=== PATIENT | female | born 1950 | race Caucasian/White ===

== ENCOUNTER → 2017-01-19 | Outpatient (CLI) | payer OTHER ==
[~2017-01-19] MED LIST: ALPR0.25 PO; ESCI1TAB9 PO; SULF800T23 PO; [UNRECOGNIZED DRUG - CODE] IV
[2017-01-19 11:20] LABS: BASO % 0.3 %; BASO ABS # 0.02 K/uL (0-0.2); COMPLETE YES; EOS % 2.8 %; HEMATOCRIT 41.6 % (37-47); IG% 0.2 %; LYMPH % 31.1 %; LYMPH ABS # 2.02 K/uL (1.2-3.4); MEAN CELL VOLUME 93.3 fL (80-100); MEAN CORPUSCULAR HEMOGLOBIN 29.8 pg (25-34); MEAN PLATELET VOLUME 10.1 fL (7.4-10.4); MONO % 7.2 %; NEUT % 58.4 %; PLATELET COUNT 309 K/uL (130-400); RED BLOOD COUNT 4.46 M/uL (4.2-5.4); WHITE BLOOD COUNT 6.49 K/uL (4.8-10.8)
[2017-01-19 11:42] LABS: ESTIMATED AVERAGE GLUCOSE 117 mg/dl; HA1C FLAG Normal (Normal)
[2017-01-19 11:46] LABS: ALT/SGPT 21 U/L (12-78); BLOOD UREA NITROGEN 16 mg/dl (7-18); BUN/CREATININE RATIO 21.1 (10-20); CARBON DIOXIDE 31 mmol/L (21-32); CHLORIDE 104 mmol/L (98-107); CHOLESTEROL 180 mg/dl (0-200); CREATININE 0.74 mg/dl (0.60-1.20); GLUCOSE 88 mg/dl (70-99); POTASSIUM 4.1 mmol/L (3.5-5.1); SODIUM 140 mmol/L (136-145); TRIGLYCERIDES 139 mg/dl (0-150); URIC ACID 4.6 mg/dl (2.6-7.2); VERY LOW DENSITY LIPOPROT CALC 28 mg/dl
[2017-01-19 11:55] LABS: ALB/GLOB RATIO 1.1 (0.9-2); ALKALINE PHOSPHATASE 95 U/L (45-117); AST/SGOT 18 U/L (15-37); CHOLESTEROL/HDL RATIO 2.6; HDL CHOLESTEROL 69 mg/dl; LDL CHOLESTEROL CALCULATED 83 mg/dl; PHOSPHORUS 3.6 mg/dl (2.5-4.9)
== END | disposition home or self-care (01) ==
LOC: C.LABBC 07:23
PROVIDERS: ATTEND Family Medicine
DX: R73.09 Other abnormal glucose (principal); E55.9 Vitamin D deficiency, unspecified; D51.9 Vitamin B12 deficiency anemia, unspecified

== ENCOUNTER 2019-01-18 08:15 | Inpatient (IN) ==
--- NOTE | 2018-12-25 11:19 | Anesthesiology Consultation ---
Date of Service December 25, 2018 Assessment & Plan (1) Encounter for pre-operative examination: Chart Review Chart Review: Acceptable Risk for Surgery and Patient seen in Pre Admission Testing Teaching & Discussion Instructed NPO after midnight before surgery, except medications with 15 cc of water. Medication instructions provided according to the [facility] guidelines. History Surgery Operation Date: 01/18/19 10:40 Proposed Procedures p Left Total Knee Arthroplasty - Dangelo Villegas MD Height/Weight Height: 5 ft 3 in Weight: 70.4 kg Allergies Allergy/AdvReac Type Severity Reaction Status Date / Time No Known Allergies Allergy Verified 12/21/18 11:08 Medications Home Medications Medication Instructions Recorded Confirmed Last Taken abatacept (with maltose) [Orencia 750 mg IV UD 12/21/18 12/21/18 Unknown (with maltose)] acetaminophen [Tylenol Extra 1,000 mg PO Q6H PRN 12/21/18 12/21/18 Unknown Strength] alprazolam 0.1 tab PO HS 12/21/18 12/21/18 Unknown naproxen sodium 220 mg PO QID PRN 12/21/18 12/21/18 Unknown Past Medical History Medical History Leaky heart valve HX-20 YRS AGO-ECHO DONE-NO F/U WITH COLLEGE DIRECTOR REQUIRED. 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 CHILDBIRTH/INFECTION OVARY-TREATED WITH WARFARIN X 3 MONTHS-NO ISSUES SINCE Past Family History Family History Father Family history of diabetes mellitus Past Surgical History Surgical History H/O foot surgery RIGHT BUNION H/O ovarian cystectomy History of section History of hysterectomy TOTAL History of laparotomy ECTOPIC Past Anesthesia History No Hx of Anesthesia Complications and No Family Hx of Anesthesia Complications History of PONV No Motion Sickness Screening History of Motion Sickness: No Social History Smoking Status: Former smoker Do You Dip or Chew Tobacco: No Smoking End Date: QUIT 3 YRS AGO Hx Alcohol Use: No Hx Substance Use: No substance use type: does not use Exercise / Class Metabolic Activity II 4-5 Yardwork/Stairs/Walk up hill (denies CP or SOB with 1 FOS) Pt reports going to gym 4x per week, HR into 130s doing cardio. Review of Systems Pt denies any recent chest pain, shortness of breath, cough, fever or URI. +occ palpitations Physical Exam Vital Signs BP: 163/80 (pt reports anxiety today) P: 82bpm SPO2: 96% RA T: 98.3 F R: 16 ENMT Mouth: + dental restorations (one implant, several crowns); no chipped teeth and no loose teeth Thyromental Distance: > or= 3.5 Finger Breadths (4) Mallampati Class: I Neck normal visual inspection; neck extension not limited Respiratory normal respiratory effort Auscultation: lungs clear to auscultation bilaterally Cardiovascular Rate/Rhythm: regular rate and regular rhythm Heart Sounds: no murmur Vessels: no carotid bruit Extremities: no edema Testing Electrocardiogram Date: 12/25/18 Findings: + NSR @ (80) Chest X-Ray Date: 12/25/18 Findings: + NAD Cervical Spine Date: 12/25/18 FINDINGS: There are moderate multilevel degenerative changes. The prevertebral soft tissues are normal. There is 3 mm of anterolisthesis of C3 on C4. This reduces to neutral on extension and remains unchanged in flexion. IMPRESSION: 1. Multilevel degenerative changes 2. 3 mm of anterior subluxation of C3 on C4 likely arthritic. Laboratory Results 12/25/18 11:45 Blood Type O Positive 12/25/18 11:45 Antibody Screen NEGATIVE 12/25/18 11:45 PT 9.9 Seconds (9.0-12.0) 12/25/18 11:45 INR 1.0 (0.9-1.1) 12/25/18 11:45 APTT 26.1 Seconds (21.0-31.0) 12/25/18 11:45 11/27/18 WBC: 10.05 H/H: 13.4/40.8 PLATELETS: 291
--- NOTE | 2018-12-25 11:34 | PAT Medication Instructions ---
Medication Instructions Date of Service December 25, 2018 Home Medications abatacept (with maltose) [Orencia] 750 mg IV UD acetaminophen [Tylenol Extra] 1,000 mg PO Q6H PRN alprazolam 0.1 tab PO HS naproxen sodium 220 mg PO QID PRN Continue as directed abatacept (with maltose) [Orencia] 750 mg IV UD ASK your surgeon for instructions naproxen sodium 220 mg PO QID PRN Take morning of surgery With a small sip of water, OTHERWISE NOTHING TO EAT OR DRINK AFTER MIDNIGHT: acetaminophen [Tylenol Extra] 1,000 mg PO Q6H PRN (if needed, may be taken up to four hours before surgery) Take evening before surgery acetaminophen [Tylenol Extra] 1,000 mg PO Q6H PRN (if needed) alprazolam 0.1 tab PO HS Other Notes If you have any questions please call us at [phone] or [phone] or [phone] or [phone]
--- NOTE | 2018-12-25 12:24 | XRay Report ---
XR chest Pre-admission PA/Lat CLINICAL HISTORY: Preoperative chest COMPARISON STUDY: No previous studies for comparison. FINDINGS: The cardiac and mediastinal contours are normal. There is no evidence of focal pulmonary co nsolidation. There is no evidence of failure. No pleural effusions are visualized.[ IMPRESSION: No active disease in the chest. Electronically signed by: Yoni Whalen M.D. 12/25/2018 12:22 PM
--- NOTE | 2018-12-25 12:27 | XRay Report ---
LATERAL VIEW THE CERVICAL SPINE IN FLEXION AND EXTENSION (3 VIEWS) CLINICAL HISTORY: Preoperative study. Rheumatoid arthritis. COMPARISON STUDY: No previous studies for comparison. FINDINGS: There are moderate multilevel degenerative changes. The prevertebral soft tissues are sis l. There is 3 mm of anterolisthesis of C3 on C4. This reduces to neutral on extension and remains unc hanged in flexion. IMPRESSION: 1. Multilevel degenerative changes 2. 3 mm of anterior subluxation of C3 on C4 likely arthritic Electronically signed by: Yoni Whalen M.D. 12/25/2018 12:25 PM
[2018-12-25 13:42] LABS: Partial Thromboplastin Time 26.1 Seconds (21.0-31.0); Prothrombin Time 9.9 Seconds (9.0-12.0)
[2018-12-25 14:01] LABS: BUN Creatinine Ratio 27.7 (10-20); C Reactive Protein 0.38 mg/dl (0-0.29); Calcium 9.2 mg/dl (8.5-10.1); Creatinine Clr Calc Pharmacy 67.5 ml/min; Est GFR (African American) 96.7; Est GFR (Non-African American) 83.4; Potassium 4.9 mmol/L (3.5-5.1)
--- NOTE | 2019-01-11 09:15 | History and Physical Report ---
DATE OF ADMISSION: 01/18/2019 CHIEF COMPLAINT: Bilateral knee pain and discomfort, left side greater than right. HISTORY OF PRESENT ILLNESS: The patient is a 68-year-old female with longstanding rheumatoid disease followed by Dr. Zuniga, who now presents for surgical treatment of her knees. She has got a long history of bilateral knee pain and discomfort, left side a bit worse than the right that she describes it has gotten worse over time. She has been treated medically by the front end software engineer since 1994. Currently, on Orencia injections, which really do not seem to help her knees much. She had become more and more limited by her pain. She has had a global pain. The more she walks, the more it hurts. She has difficulty going up and down steps. She has nighttime pain. She would like to proceed with surgical treatment. PAST MEDICAL HISTORY: Significant for: 1. Rheumatoid disease since 1994. 2. Basal cell skin cancer. PAST SURGICAL HISTORY: Previous surgeries include: 1. 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 2. Bunion surgery in 1994. ALLERGIES: None. CURRENT MEDICATIONS: 1. Mobic. 2. Tylenol. 3. Xanax. 4. Orencia. SOCIAL HISTORY: A 68-year-old female. She is . Does not smoke. No significant alcohol intake. FAMILY HISTORY: Noncontributory. REVIEW OF SYSTEMS: Significant for rheumatoid disease. Denies any chest pain, no shortness of breath. No history of DVT or PE. There is some concern about a thrombosis at one point after one of her ovarian surgeries, complicated by infection. She has no known clotting disorders. PHYSICAL EXAMINATION: GENERAL: Reveals a healthy pleasant, middle-aged female. Looks to be in pretty good health. HEENT: Benign. NECK: Supple, no lymphadenopathy. LUNGS: Clear to auscultation. HEART: Has a regular rate and rhythm. ABDOMEN: Soft, nontender, nondistended. EXTREMITIES: Grossly neurovascularly intact except as follows: Examination of both knees reveals patient walks independently. Examination of left knee reveals a fairly neutral slight varus alignment. She has got tenderness primarily medially. She does have a little bit of laxity to varus and valgus stressing. She can do a good straight leg raise. Range of motion is couple degrees short of full extension to 120 degrees of flexion. No pain with hip motion. Small knee effusion. Examination of the right knee reveals fairly neutral alignment. Minimal knee effusion. Range of motion 0-125. No instability. No pain with hip motion. X-RAYS: X-rays of both knees reveal advanced bilateral knee DJD. The left side is a bit worse than the right. She has got osteophytes off the medial femoral condyle and medial tibial plateau. She has got patellofemoral disease as well. Diffuse osteopenia. ASSESSMENT: A 68-year-old female with longstanding rheumatoid disease with bilateral knee pain, degenerative joint disease, left side a bit worse than right. She has failed conservative treatment and would like to proceed with definitive treatment/knee replacement. PLAN: We will take her to the operating room and do a left total knee replacement. The risks and benefits of left total knee replacement were explained to the patient including but not limited to DVT, PE, , infection, neurological injury, vascular injury, bleeding problem, pain, limited range of motion, stiffness, failure to relieve symptoms, incomplete relief of symptoms, need for further surgery in the future, fracture, leg length inequality, nerve palsy, etc. The patient understands and desires to proceed. Informed consent was obtained. We are going to do a left knee first and see how she responds and how she recovers from this. She will likely proceed with right knee replacement in not too distant future depending on how she recovers. We will likely put some vancomycin in her cement due to her underlying rheumatoid disease. She is hoping to be discharged to rehab. We will see how she does in the hospital and get social insurance analyst working on that in the hospital.
[~2019-01-18 08:15] MED LIST changes: +ACETAMINOPHEN 500 MG TAB PO SCH; -ALPR0.25 PO; +ATROPINE SULFATE 0.1 MG/ML 10ML SYR IV PRN; +BUPIVACAINE 0.5 % 5 MG/1 ML PF 10ML VIAL ONE; +BUPIVACAINE LIPOSOME/PF 266 MG, BUPIVACAINE/EPINEPHRINE 50 ML, SODIUM CHLORIDE 0.9% 30 ... INFIL SCH; +CEFAZOLIN 2000MG 2,000 MG/15 ML SYR IV SCH; -ESCI1TAB9 PO; +FAMOTIDINE 20 MG TAB PO SCH; +GABAPENTIN 300 MG PO SCH; +LR 500ML BOLUS, THEN 15ML/HR IV SCH; +LR 60ML/HR IV SCH; +METOCLOPRAMIDE HCL 10 MG TABLET PO SCH; +ONDANSETRON INJ 2 MG/ML 2 ML VIAL IV PRN; +ROPIVACAINE 0.5% 5 MG/ML 30 ML VIAL ONE; -SULF800T23 PO; +TRANEXAMIC ACID 1,000 MG **IV Intra-op IV SCH; -[UNRECOGNIZED DRUG - CODE] IV; +ePHEDrine sulfate 50 MG/ML AMP IV PRN
[2019-01-18] MEDS ORDERED: LIDOCAINE HCL 2% 2 ML VIAL/AMP(20MG/ML) INFIL ONE (08:19)
[2019-01-18] MEDS ORDERED: MIDAZOLAM HCL 1 MG/ML 2ML VIAL ONE (08:19)
[2019-01-18] MEDS ORDERED: PROPOFOL IV EMULSION 10 MG/ML 20 ML VIAL IV ONE (08:19)
--- OUTSIDE RECORDS SUMMARY | 2019-01-18 08:23 | External Medical Summary | Continuity of Care Document ---
:1950 Author Name Annamaria Malagon Address Unavailable Unavailable , Care Team Providers Name Role Phone [employer] M.D. 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.16) (H90.41) Urinary urgency (788.63) (R39.15) Urge and stress incontinence (788.33) (N39.46) Encounter for routine gynecological exam ination with Papanicolaou smear of cervix (V72.31) (Z01.419) Hearing loss (389.9) (H91.90) Eustachian tube dysfunction (381.81) (H69.80) Functional Status Hearing loss Allergies and Adverse Reactions No Known Drug Allergies (Allergy) Medications Lexapro TABS Refills: 0 Orencia SOLR Refills: 0 Xanax TABS Refills: 0 Procedures History of Appendectomy Status: Complete d History of Section Status: Comp leted History of Hysterectomy Status: Complete d History of Oophorectomy For Ectopic Status: Completed Immunizations Immunizations not documented Family History Father Family history of diabetes mellitus (V18.0) (Z83.3) Status: Active Family history of hypertension (V17.49) (Z82.49) Status: Act alea Family history of cardiac disorder (V17.49) (Z82.49) Status: Active Grandfather Family history of diabetes mellitus (V18.0) (Z83.3) Status: Active Family history of hypertension (V17.49) (Z82.49) Status: Act alea Grandmother Family history of kidney stones (V18.69) (Z84.1) Status: Act alea Social History - Smoking Status Current every day smoker Plan of Treatment Planned Observations Planned Goals not documented Results No Known Results Results not documented Encounters Appointment; Dominic Galvan Au.D.|CCC-A 30-Oct-2017 10:40 Encounter Diagnosis: Problem not documented"
--- NOTE | 2019-01-18 08:48 | History & Physical Bridge Note ---
Date of Service January 18, 2019 History & Physical Bridge Note I have examined the patient, reviewed the History & Physical and in the interval since the performance of the History & Physical I have noted the following changes of clinical significance: no changes noted
[2019-01-18] MEDS ORDERED: SODIUM CHLORIDE 0.9% PF 50 ML VIAL ONE (10:54)
[2019-01-18] MEDS ORDERED: BUPIVACAINE LIPOSOME 1.3% 266 MG/20 ML VIAL ONE (10:54)
[2019-01-18] MEDS ORDERED: BACITRACIN INJ 50,000 UNIT VIAL ONE (10:55)
[2019-01-18] MEDS ORDERED: BUPIVACAINE 0.25% 30 ML VIAL ONE (10:56)
[2019-01-18] MEDS ORDERED: VANCOMYCIN HCL 1000MG/20ML VIAL ONE (10:56)
[2019-01-18] MEDS ORDERED: EPINEPHrine INJ 1 MG/ML AMP ONE (10:56)
--- NOTE | 2019-01-18 12:57 | Post Operative Brief Note ---
Immediate Post Op Note v1 Date of Surgery January 18, 2019 Pre & Post Diagnosis Operation Date: 01/18/19 10:40 Pre-Op Diagnosis: Advanced Left Knee Degenenerative Joint Disease. Post-Op Diagnosis: Advanced Left Knee Degenenerative Joint Disease. Procedure Operation Date: 01/18/19 10:40 Actual Procedures p Left Total Knee Arthroplasty(Left) - Dangelo Villegas MD Surgeon Dangelo Villegas MD Radiology Receptionist None Estimated Blood Loss 50 Findings Consistent with Post-Op Diagnosis Fluids 1400 cc Specimens Left Knee Drains Garcia Catheter Anesthesia Type Spinal MAC Complications none Disposition Accompanied Patient To Recovery: Yes Disposition: Recovery Room
--- NOTE | 2019-01-18 13:24 | XRay Report ---
XR knee LT 2V routine CLINICAL HISTORY: Surgical Post Op COMPARISON: 03/16/2016 DISCUSSION: Anatomic alignment post total left knee arthroplasty. Good contact between prosthetic and underlying bone. Expected soft tissue postoperative change. IMPRESSION: Anatomic alignment post total left knee arthroplasty. The above report was generated using voice recognition software. It may contain grammatical, syntax or spelling errors. Electronically signed by: Nj Snider M.D. 01/18/2019 1:23 PM
[2019-01-18] MEDS ORDERED: BISACODYL 10 MG SUPP PR PRN (13:26)
[2019-01-18] MEDS ORDERED: HYDROmorphone INJ 0.5 MG/0.5 ML SYR IV PRN (13:26)
[2019-01-18] MEDS ORDERED: ONDANSETRON INJ 2 MG/ML 2 ML VIAL IV PRN (13:26)
[2019-01-18] MEDS ORDERED: TRAMADOL HCL 50 MG TABLET PO PRN (13:26)
[2019-01-18] MEDS ORDERED: MAGNESIUM HYDROXIDE SUSP 30 ML UDC PO PRN (13:26)
[2019-01-18] MEDS ORDERED: ALUMINUM/MAGNESIUM SUSP 30 ML UDC PO PRN (13:26)
[2019-01-18] MEDS ORDERED: NALOXONE HCL 0.4 MG/1 ML VIAL/CARP IV PRN (13:26)
[2019-01-18] MEDS ORDERED: METOCLOPRAMIDE HCL INJ 5 MG/ML 2 ML VIAL IV PRN (13:26)
[2019-01-18] MEDS: ACETAMINOPHEN 500 MG TAB PO SCH ×2 (14:20→21:02)
[2019-01-18] MEDS: KETOROLAC TROMETHAMINE 15 MG/ML VIAL IV SCH ×2 (14:20→21:00)
[2019-01-18] MEDS: SODIUM CHLORIDE 0.9% 1000ML 1,000 ML IV SCH (14:20)
[2019-01-18] MEDS: FERROUS GLUCONATE 324 MG TAB PO SCH (16:16)
[2019-01-18] MEDS: ASCORBIC ACID 500 MG TAB PO SCH (16:16)
--- NOTE | 2019-01-18 16:33 | Anesthesiology Progress Note ---
Date of Service January 18, 2019 Anesthesia Post Procedure Vital Signs Vital Signs: Temp Pulse Pulse Resp BP Pulse Ox 01/18/19 15:47 36.5 C 54 L 16 126/72 99 01/18/19 14:35 52 L 16 117/70 98 01/18/19 14:04 64 16 129/80 98 01/18/19 13:35 36.6 C 70 16 125/71 95 01/18/19 13:25 68 16 126/67 95 01/18/19 13:15 36.6 C 72 16 128/60 95 01/18/19 13:05 73 16 113/68 96 01/18/19 12:57 36.4 C L 70 16 102/64 98 01/18/19 08:49 37 C 84 18 160/89 H 96 Transfer of Care Handoff Completed per policy Notes Mental Status: alert / awake / arousable Patient Amnestic to Procedure: Yes Nausea / Vomiting: adequately controlled Pain: adequately controlled Airway Patency, RR, SpO2: stable & adequate BP & HR: stable & adequate Hydration State: stable & adequate Neuraxial Anesthesia: was administered and sensory block is resolving Anesthetic Complications: no major complications apparent and Pt Satisfied with anesthetic care
[2019-01-18] MEDS: CEFAZOLIN 1000MG 1,000 MG/7.5 ML SYR IV SCH (18:52)
[2019-01-18] MEDS ORDERED: TRANEXAMIC ACID 1,000 MG in 0.9 % SODIUM CHLORIDE 100 ML IV SCH (18:59)
[2019-01-18] MEDS: ALPRAZolam 0.25 MG TABLET PO SCH (21:01)
[2019-01-18] MEDS: SENNA 8.6 MG TAB PO SCH (21:01)
[2019-01-18] MEDS: DOCUSATE SODIUM 100 MG CAP PO SCH (21:03)
[2019-01-18] MEDS: ASPIRIN 81 MG ECTAB PO SCH (21:03)
[2019-01-18] MEDS: METOPROLOL SUCC 50MG EXT REL TAB PO SCH (21:04)
[2019-01-18] MEDS: METOPROLOL SUCC 25MG EXT REL TAB PO SCH (21:05)
[2019-01-19] MEDS: SODIUM CHLORIDE 0.9% 1000ML 1,000 ML IV SCH (00:47)
--- NOTE | 2019-01-19 01:58 | Operative Report ---
DATE OF OPERATION: 01/18/2019 SURGEON: Dangelo Villegas MD CONCRETE PUMP OPERATOR HELPER: None. PREOPERATIVE DIAGNOSIS: Left knee degenerative joint disease secondary to rheumatoid arthritis. POSTOPERATIVE DIAGNOSIS: Left knee degenerative joint disease secondary to rheumatoid arthritis. PROCEDURE PERFORMED: Right cemented posterior right total knee arthroplasty. COMPLICATIONS: None. ESTIMATED BLOOD LOSS: 50 mL. FLUID REPLACEMENT: 1400 mL of crystalloid fluid replacement. TOURNIQUET TIME: 55 minutes at 300 mmHg. ANESTHESIA: Spinal with adductor canal block. DRAINS: None. SPECIMENS: Left knee sent for Pathology. OPERATIVE INDICATIONS: The patient is a 68-year-old female with longstanding rheumatoid disease and had a long history of bilateral knee pain and discomfort, left side a bit worse than the right. The patient has been through extensive conservative care by the leasing consultant as well as by my partner Dr. Wei. The pain has become disabling and she elected to proceed with total knee arthroplasty. OPERATIVE FINDINGS: Revealed advanced left knee DJD. Extensive grade 4 [id number] disease and eburnation of the medial compartment. She had extensive grade 4 changes of the patellofemoral compartment as well. Fairly mild lateral compartment disease. She had diffuse osteopenia. She had osteophytes in all 3 compartments. She has moderate size joint effusion and moderate synovitis. OPERATIVE IMPLANTS: Operative implants consisted of, 1. A Biomet Vanguard size 65 left posterior stabilized femoral component. 2. Biomet size 67 tibial tray. 3. A 12 mm posterior stabilized polyethylene insert. 4. A 28 x 8 all poly patella. OPERATIVE PROCEDURE: The patient was taken to the Operating Room, identified and placed on the Operating Room table in supine position. All contact areas were appropriately padded. I.V. antibiotics were provided by Anesthesia team. A spinal anesthetic and adductor canal block had been applied in the holding area. Garcia catheter was placed in sterile fashion. A left thigh tourniquet was then placed and left lower extremity was then prepped and draped in usual sterile fashion. Left leg was elevated and exsanguinated with Esmarch and tourniquet was placed at 300 mmHg. An anterior approach to the left knee was then performed through an incision centered over the patella. Sharp dissection was carried through subcutaneous tissues down to the level of the extensor mechanism. A medial parapatellar arthrotomy incision was made. Some subperiosteal dissection was carried out medially. The fat pad resected from beneath the patellar tendon. The lateral patellofemoral ligament was released. The patella was everted and knee was flexed. The osteophytes were taken off the distal femur. The ACL and PCL were then released from the distal femur and the tibia subluxated anteriorly. External tibial alignment jig was then placed in the anterior face of the tibia and adjusted 14 mm medially. Proximal tibial cut was made to remove about a millimeter of bone from the most deficient aspect of the medial tibial plateau. Some osteophytes were taken off medial and posteromedially. Tibia was sized to a size 67. Attention was then drawn to the femur. The distal femur was entered with a sharp drill. Intramedullary guide was placed. A left 5-degree valgus cutting guide was placed. Distal femoral cutting block was pinned in place. Distal femoral cut was made to take an additional 3 mm of bone off the distal femur. The femur was then sized to a size 65. It sized almost exactly to a 65. The AP cutting block was pinned parallel to the epicondylar axis, which was 5 degrees of external rotation. The anterior cut, anterior chamfer, posterior cut, posterior chamfer cuts were made. Box cutting guide was placed and adjusted slight lateral and box cut was made. The knee was flexed. The remnants of the medial and lateral menisci were excised. The osteophytes were taken off the posterior aspect of the femur. Trial femoral component was placed. Tibial tray was pinned in maximum external rotation and the drill and stem punch were used to create defect in proximal tibia for the tibial tray. The knee was then trialed and 12 mm insert fit most appropriately. Attention was then drawn towards the patella. The patella was cleaned of all soft tissues. Patella thickness measured 20 mm in thickness, was cut down to 13 mm. It was sized to a size 28 patella. Lug holes were drilled for a 28 patella. Lateral osteophyte was removed. Patella button was placed. Knee was taken through range of motion, patella tracked nicely with no thumbs test. Attention was then drawn towards placement of the permanent components. All trial components were removed. A bone plug was placed in the distal femur to limit blood loss. A double batch of Palacos G cement was mixed. I did add an additional gram of vancomycin due to her immunocompromised state and rheumatoid disease. A Biomet [employer] Data [employer] Software[employer] size 65 left posterior stabilized femoral component, size 67 tibial tray, 12 mm posterior stabilized polyethylene insert, and 28 x 8 all poly patella were then cemented in place. The knee was brought out into full extension until cement hardened. A final cement check was then performed. Pericapsular tissues were injected with a total of 100 mL of combination of 20 mL of Exparel, 30 mL of normal saline, 50 mL of 0.25% Marcaine with epinephrine. The patient did receive 1 g of tranexamic acid. The tourniquet was then let down for final tourniquet time of 55 minutes. Hemostasis was assured using electrocautery. The extensor mechanism was then closed with a combination of #1 PDS suture and #1 Vicryl suture in a [id number] fashion. Extensor mechanism was checked and found to be intact. The subcutaneous tissue was then closed with 2-0 Dexon suture in a buried interrupted fashion. Skin was closed with skin nieves. Leg was then cleaned and dried and a sterile dressing with Xeroform, 4 x 4, sterile cast padding and Shun bandage were applied. The patient was then transferred to the recovery room in a stable condition. The patient tolerated the procedure well with no complication. All needle and sponge counts were correct at the end of the operation. I attest to the content of the Intraoperative Record and any orders documented therein. Any exception s are noted below.
[2019-01-19] MEDS: CEFAZOLIN 1000MG 1,000 MG/7.5 ML SYR IV SCH (03:12)
[2019-01-19] MEDS: KETOROLAC TROMETHAMINE 15 MG/ML VIAL IV SCH ×4 (03:13→19:40)
[2019-01-19] MEDS: ACETAMINOPHEN 500 MG TAB PO SCH ×3 (05:38→21:01)
[2019-01-19 06:48] LABS: Hematocrit (blood only) 34.7 % (37-47); Hemoglobin 11.5 g/dL (12.0-16.0); Mean Corpuscular Hgb Conc 33.1 g/dL (32-36); Mean Platelet Volume 9.9 fL (7.4-10.4); Platelet Count 266 K/uL (130-400); RDW Coefficient of Variation 13.4 % (11.5-14.5); Red Blood Count 3.77 M/uL (4.2-5.4); White Blood Count 10.08 K/uL (4.8-10.8)
[2019-01-19 07:23] LABS: BUN Creatinine Ratio 15.1 (10-20); Calcium 8.2 mg/dl (8.5-10.1); Creatinine Clr Calc Pharmacy 71.8 ml/min; Est GFR (African American) 103.2; Est GFR (Non-African American) 89.1; Potassium 4.1 mmol/L (3.5-5.1)
[2019-01-19] MEDS ORDERED: ALPRAZolam 0.25 MG TABLET PO PRN (08:06)
--- NOTE | 2019-01-19 08:11 | Anesthesiology Progress Note ---
Date of Service January 19, 2019 Anesthesia Post Procedure Vital Signs Vital Signs: Temp Pulse Pulse Pulse Resp BP Pulse Ox 01/19/19 07:27 36.6 C 78 18 167/89 H 97 01/19/19 03:16 36.9 C 76 16 147/85 H 97 01/18/19 23:48 36.9 C 64 18 129/78 96 01/18/19 19:50 36.7 C 79 16 153/79 H 99 01/18/19 16:42 36.9 C 57 L 16 110/63 97 01/18/19 15:47 36.5 C 54 L 16 126/72 99 01/18/19 14:35 52 L 16 117/70 98 01/18/19 14:04 64 16 129/80 98 01/18/19 13:35 36.6 C 70 16 125/71 95 01/18/19 13:25 68 16 126/67 95 01/18/19 13:15 36.6 C 72 16 128/60 95 01/18/19 13:05 73 16 113/68 96 01/18/19 12:57 36.4 C L 70 16 102/64 98 01/18/19 08:49 37 C 84 18 160/89 H 96 Transfer of Care Handoff Completed per policy Notes Mental Status: alert / awake / arousable Patient Amnestic to Procedure: Yes Nausea / Vomiting: adequately controlled Pain: adequately controlled Airway Patency, RR, SpO2: stable & adequate BP & HR: stable & adequate Neuraxial Anesthesia: was administered and sensory block is resolving Anesthetic Complications: no major complications apparent Notes: POD #1. Doing well, no complaints. Has been OOB and tolerating PO.
--- NOTE | 2019-01-19 08:40 | Progress Note ---
DATE: 01/19/2019 SUBJECTIVE: A 68-year-old white female with underlying rheumatoid disease, postop day 1 from left knee replacement. Her pain is controlled. Had a really restless sleep last night and quite bothered by this. Has a lot of anxiety. No chest pain or shortness of breath. Once again, her pain is remarkably well controlled. OBJECTIVE: VITAL SIGNS: Temperature 36.6. Vital signs stable. GENERAL: Physical examination shows a pleasant elderly female. She is sitting up in bed and looks pretty comfortable. EXTREMITIES: Examination of the left leg reveals the dressing is clean, dry and intact. Calf is soft and supple. She can dorsiflex and plantarflex her foot appropriately. Leg is well aligned. She is neurologically intact. LABORATORY DATA: Hemoglobin is 11.5, hematocrit 34.5. Electrolytes are stable. ASSESSMENT: A 68-year-old white female postop day 1 from a left knee replacement, doing quite well from the knee replacement standpoint. She has got a lot of anxiety issues and really bothered by the fact that she did not get much sleep last night. She is requesting to talk to a psychiatrist. She also may be having more antianxiety medicine and possibly even an antidepressant. PLAN: 1. DVT prophylaxis including thigh-high TEDs, SCDs, and aspirin twice a day. 2. PT/OT. She will weightbear as tolerated. Left total knee protocol. 3. Pain control. Doing remarkably well in current pain regimen. 4. Anxiety. We will consult psychiatry at the patient's request. We will put her on a p.r.n. dose of Xanax at small doses. We have to be careful as she is on narcotics as well for pain. 5. Disposition: She is hoping to be discharged to rehab. Social service is working on that.
[2019-01-19] MEDS: MULTIVITAMIN TAB PO SCH (08:43)
[2019-01-19] MEDS: ASPIRIN 81 MG ECTAB PO SCH ×2 (08:43→20:55)
[2019-01-19] MEDS: FERROUS GLUCONATE 324 MG TAB PO SCH ×2 (08:43→16:46)
[2019-01-19] MEDS: ASCORBIC ACID 500 MG TAB PO SCH ×2 (08:43→16:46)
[2019-01-19] MEDS: DOCUSATE SODIUM 100 MG CAP PO SCH ×2 (08:43→19:28)
[2019-01-19] MEDS: METOPROLOL SUCC 50MG EXT REL TAB PO SCH (08:44)
--- NOTE | 2019-01-19 12:27 | Psychiatric Consultation ---
Date of Consultation January 19, 2019 Impression / Recommendations Impression 68 yo female with long history of anxiety, stable on Lexapro 10 mg until increase in sleep disruption due to age/pain. Tapered SSRI in November with subsequent worsening of anxiety to level of panic. reviewed risks related to ongoing use of benzodiazepines, particularly given age in relation to fall risk and that would not advise doses >0.5 mg and should ultimately be tapered when back on therapeutic dose of an SSRI. 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 She agreed to maintain Xanax 0.25 mg with prn dose and add Neurontin. Reviewed risks of combined sedation. Will restart Lexapro 5 mg vs 10 mg as currently has prn order for Reglan and Zofran and there are QTc warnings in combo with those medications. She doesn't anticipate taking those as avoiding narcotics. Lexapro should be retitrated to 10 mg upon discharge with check in with Dr. Douglass in 2 weeks re: possible 15 mg dose (would not retry 20 mg). Neurontin should be titrated in 100 mg increments depending on tolerability to minimize reliance on Xanax which should hopefully be tapered. Risk Factors Assessment Do You Have Access To A Gun?: No Psych History Chief Complaint "I started with panic and haven't been sleeping for awhile". History of Present Illness Mrs. Reyes describes good response to low dose Lexapro for several years for her anxiety. She generally took 0.125 or 0.25 mg Xanax prn sleep during those years. About 3 months ago, she reports having a hard time sleeping in the context of dealing with more health anxiety. Xanax was increased but still woke up at night (states related to knee pain) and she felt affective blunting. In retrospect, anxiety has probably been higher for the past year and sleep issues started after Lexapro dose was increased to 20 mg. She ultimately decided to stop Lexapro in November but has since started experiencing panic, probably in anticipation of surgery. Her brought her to the ED about 3-4 weeks ago where she was given Ativan prn. She anticipates discharge to rehab tomorrow. Past Psychiatric History Previous Psych History: meds per PCP Current Psychiatric Diagnosis: SUZY Outpatient Services: no therapy Previous Psych Admissions: none Do You Have Access To A Gun?: No History of Previous Suicide Attempt: No Past Medication Trials: trazodone (over sedation), Celex ("OK"), Lexapro (12+ years), Xanax, Ativan, neurontin (preop--very effective for pain), Remeron (unclear how many doses, said too sedating). Allergies Allergy/AdvReac Type Severity Reaction Status Date / Time No Known Allergies Allergy Verified 01/18/19 08:36 Home Medications Home Medications Medication Instructions Recorded Confirmed Type acetaminophen [Tylenol Extra 1,000 mg PO Q6H PRN 12/21/18 01/18/19 History Strength] alprazolam 0.1 tab PO HS 12/21/18 01/18/19 History naproxen sodium 220 mg PO QID PRN 12/21/18 01/18/19 History metoprolol succinate 25 mg PO QPM 01/15/19 01/18/19 History metoprolol succinate 50 mg PO QAM 01/15/19 01/18/19 History Family History pat gma depression Substance Abuse History none Personal History Living Arrangements: Home Living Arrangements Comments: with Highest Grade Completed: College 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 OVARY-TREATED WITH WARFARIN X 3 MONTHS-NO ISSUES SINCE Surgical History H/O foot surgery RIGHT BUNION H/O ovarian cystectomy History of section History of hysterectomy TOTAL History of laparotomy ECTOPIC Family History Father Family history of diabetes mellitus Social History Preferred Language: Icelandic Communication Ability: Effective Pearler Required: No Beliefs That Will Affect Care: None marital status: Current Living Situation: Spouse Other Information That Helps Us Care for You: No Feels Safe at Home: Yes Safety Concerns: Feels Safe At This Time Smoking Status: Never smoker Do You Dip or Chew Tobacco: No Smoking End Date: QUIT 3 YRS AGO Second Hand Exposure: No Hx Alcohol Use: No Hx Substance Use: No Physical Exam Psychiatric: Orientation: alert, oriented x 3 and cooperative Apperance: appropriately groomed Eye Contact: good eye contact Motor Behavior: no abnormal motor movements Speech: normal rate/rhythm/volume of speech Affect: euthymic affect Mood: + anxious mood Thought Process: goal directed thought process Thought Content: reality based without delusions Suicidal Thoughts: denies suicidal thoughts Homicidal Thoughts: denies homicidal thoughts Hallucinations: no auditory hallucinations and no visual hallucinations Cognition: recent memory grossly intact, remote memory grossly intact, attention grossly intact and language grossly intact Estimated Intelligence: consistent with education level Insight: good insight Judgement: good judgement Vital Signs (Past 24 Hours): Last Vital Signs Temp 36.6 C 01/19/19 07:27 Pulse 78 01/19/19 07:27 Resp 18 01/19/19 07:27 BP 167/89 H 01/19/19 07:27 Pulse Ox 97 01/19/19 07:27 Review of Systems All systems reviewed & are unremarkable except as noted in HPI & below Results & Data Medications Administered Acetaminophen (Tylenol) 1,000 mg PO Q8 [facility] Stop: 02/17/19 13:59 Last Admin: 01/19/19 05:38 Dose: 1,000 mg Documented by: [id number] Admin: 01/18/19 21:02 Dose: 1,000 mg Documented by: [id number] Admin: 01/18/19 14:20 Dose: 1,000 mg Documented by: [id number] Alprazolam (Xanax) 0.25 mg PO HS [facility]; Protocol Stop: 02/17/19 20:59 Last Admin: 01/18/19 21:01 Dose: 0.25 mg Documented by: [id number] Ascorbic Acid (Vitamin C) [facility] [place] Stop: 02/17/19 16:59 Last Admin: 01/19/19 08:43 Dose: 500 mg Documented by: [id number] Admin: 01/18/19 16:16 Dose: 500 mg Documented by: [id number] Aspirin (Ecotrin Ectab) 81 mg PO BID [facility] Stop: 02/17/19 20:59 Last Admin: 01/19/19 08:43 Dose: 81 mg Documented by: [id number] Admin: 01/18/19 21:03 Dose: 81 mg Documented by: [id number] Docusate Sodium (Colace) 100 mg PO BID [facility] Stop: 02/17/19 20:59 Last Admin: 01/19/19 08:43 Dose: 100 mg Documented by: [id number] Admin: 01/18/19 21:03 Dose: 100 mg Documented by: [id number] Ferrous Gluconate (Ferrous Gluconate) 324 mg PO BIDM [facility] Stop: 02/17/19 16:59 Last Admin: 01/19/19 08:43 Dose: 324 mg Documented by: [id number] Admin: 01/18/19 16:16 Dose: 324 mg Documented by: [id number] Ketorolac Tromethamine (Toradol) 15 mg IV Q6H [facility] Stop: 01/20/19 08:01 Last Admin: 01/19/19 08:50 Dose: 15 mg Documented by: [id number] Admin: 01/19/19 03:13 Dose: 15 mg Documented by: [id number] Admin: 01/18/19 21:00 Dose: 15 mg Documented by: [id number] Admin: 01/18/19 14:20 Dose: 15 mg Documented by: [id number] Metoprolol Succinate (Toprol Xl) 25 mg PO QPM [facility] Stop: 02/17/19 20:59 Last Admin: 01/18/19 21:05 Dose: 25 mg Documented by: [id number] Metoprolol Succinate (Toprol Xl) 50 mg PO QAM [facility] Stop: 02/18/19 08:59 Last Admin: 01/19/19 08:44 Dose: 50 mg Documented by: [id number] Multivitamins (Multivitamin Tab) [facility] [place] Stop: 02/18/19 08:59 Last Admin: 01/19/19 08:43 Dose: 1 tab Documented by: [id number] Ondansetron HCl (Zofran) 4 mg IV Q6H PRN PRN Reason: Nausea And Vomiting Stop: 02/17/19 13:25 Last Admin: 01/19/19 10:39 Dose: 4 mg Documented by: [id number] Sennosides (Senokot) 17.2 mg PO HS BRIJESH Stop: 02/17/19 20:59 Last Admin: 01/18/19 21:01 Dose: 17.2 mg Documented by: [id number] Tramadol HCl (Ultram) 50 - 100 mg PO Q4H PRN PRN Reason: Pain Stop: 02/17/19 13:25 Last Admin: 01/18/19 18:51 Dose: 100 mg Documented by: [id number]
[2019-01-19] MEDS: ESCITALOPRAM OXALATE 10 MG TAB PO SCH (12:48)
[2019-01-19] MEDS: SENNA 8.6 MG TAB PO SCH (20:55)
[2019-01-19] MEDS: METOPROLOL SUCC 25MG EXT REL TAB PO SCH (20:56)
[2019-01-19] MEDS: ALPRAZolam 0.25 MG TABLET PO SCH ×2 (20:59→23:24)
[2019-01-19] MEDS ORDERED: GABAPENTIN 100 MG CAP PO SCH (21:00)
[2019-01-20] MEDS: KETOROLAC TROMETHAMINE 15 MG/ML VIAL IV SCH ×2 (02:11→08:41)
[2019-01-20] MEDS: ACETAMINOPHEN 500 MG TAB PO SCH (05:53)
[2019-01-20 07:27] VITALS: BP 117/70; TEMP 99; O2SAT 99
--- NOTE | 2019-01-20 08:24 | Progress Note ---
DATE: 01/20/2019 SUBJECTIVE: A 68-year-old female postop day 2 from a left knee replacement. She is doing better this morning. Pain is improved. Had a better night sleep. No chest pain or shortness of breath. Not feeling dizzy or lightheaded. Anxiety seems to be somewhat improved. OBJECTIVE: VITAL SIGNS: Temperature 37.2. Vital signs stable. PHYSICAL EXAMINATION: GENERAL: Reveals a pleasant elderly female. She is sitting up at her bedside with her legs dangling over the bed and looks quite comfortable. EXTREMITIES: Examination of the left leg reveals the dressing to be in place. Just a trace bit of bloody drainage. Calf is soft and supple. She is neurologically intact. ASSESSMENT: A 68-year-old female with underlying rheumatoid disease, postoperative day 2 from left knee replacement, doing pretty well. Saw the psychiatrist yesterday. Feels good about that. Anxiety seems to be improved. Pain is controlled. PLAN: 1. DVT prophylaxis including thigh-high TEDs, SCDs, and aspirin twice a day. 2. PT/OT. Weight bear as tolerated. Left total knee protocol. 3. Pain control, doing well with current pain regimen. 4. Anxiety/psychiatric issues. We have written for meds as per psych's recommendation. 5. Disposition: Plan to discharge to rehab once accepted and approved.
[2019-01-20] MEDS: METOPROLOL SUCC 50MG EXT REL TAB PO SCH (08:29)
[2019-01-20] MEDS: MULTIVITAMIN TAB PO SCH (08:29)
[2019-01-20] MEDS: FERROUS GLUCONATE 324 MG TAB PO SCH (08:29)
[2019-01-20] MEDS: ASCORBIC ACID 500 MG TAB PO SCH (08:29)
[2019-01-20] MEDS: ESCITALOPRAM OXALATE 10 MG TAB PO SCH (08:30)
[2019-01-20] MEDS: ASPIRIN 81 MG ECTAB PO SCH (08:30)
[2019-01-20] MEDS: DOCUSATE SODIUM 100 MG CAP PO SCH (08:32)
[2019-01-20 09:48] VITALS: PULSE 79
--- NOTE | 2019-01-22 17:58 | Discharge Summary ---
NOTICE TO RECEIVING [facility] This information is strictly Confidential and protected under [place] law. [place] law prohibits you from making any further disclosure of this information unless further disclosure is expressly permitted by the written consent of the person to whom it pertains or is authorized by law. A general authorization for the release of medical or other information is not sufficient for this purpose. Hospital accepts no responsibility if the information is made available to any other person, INCLUDING THE PATIENT. ADMITTING PHYSICIAN AND SURGEON: Dr. Dangelo Villegas. 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 SURGERY PERFORMED: Left total knee arthroplasty. SECONDARY DIAGNOSES: Rheumatoid disease, basal cell cancer, anxiety. CONSULTS: Dr. Arely Hudson psychiatry for anxiety and depression. HISTORY AND PHYSICAL EXAMINATION: Well documented in patient's chart. HOSPITAL COURSE: The patient was admitted on 01/18/2019 underwent total knee arthroplasty, tolerated the procedure well. There were no complications. She was transferred to the PACU postoperatively and later to the orthopedic floor for further care. She was given Ancef for antibiotic prophylaxis, ARELY stockings, SCDs and aspirin for DVT prophylaxis. Hemoglobin, hematocrit and vital signs were monitored during her hospital stay and remained stable. She did not require blood transfusions. There were no complications. Postop day 1, she did have some anxiety, difficulty sleeping the night before and requested a psychiatry consult. Psychiatry was consulted and her medications were adjusted accordingly. By postoperative day 2, she was tolerating a regular diet, pain was controlled with oral pain medicine. She was participating in physical therapy. On postop day 2, she was transferred to a rehab facility. She was given printed discharge instructions including new prescriptions for extra strength Tylenol, Xanax, aspirin, escitalopram, iron supplement, gabapentin, and tramadol. Continue her home medication with exception of her home dose of Tylenol, which was changed. Continue physical therapy, weightbearing as tolerated, ARELY stockings. Follow up approximately 2 weeks postoperatively or sooner if there are any problems or concerns.
== END 2019-01-20 13:00 | DRG 470 ==
LOC: ASU 08:15 → 3E 13:04

== ENCOUNTER 2019-03-19 00:14 | Inpatient (IN) ==
[2019-03-19] MEDS ORDERED: FAMOTIDINE 20MG IV PUSH 20 MG/5 ML SYR IV STA (00:30)
[2019-03-19] MEDS ORDERED: ONDANSETRON INJ 2 MG/ML 2 ML VIAL IV STA (00:30)
[2019-03-19] MEDS: SODIUM CHLORIDE 0.9% 1000ML 1,000 ML IV SCH ×2 (00:45→17:38)
[2019-03-19 00:55] LABS: Hematocrit (blood only) 28.5 % (37-47); Hemoglobin 9.1 g/dL (12.0-16.0); Mean Corpuscular Hgb Conc 31.9 g/dL (32-36); Mean Corpuscular Volume 92.2 fL (80-100); Mean Platelet Volume 9.5 fL (7.4-10.4); Platelet Count 357 K/uL (130-400); RDW Coefficient of Variation 13.7 % (11.5-14.5); RDW Standard Deviation 45.7 fL (36.4-46.3); Red Blood Count 3.09 M/uL (4.2-5.4); White Blood Count 20.46 K/uL (4.8-10.8)
[2019-03-19 01:07] LABS: INR 1.1 (0.9-1.1); Partial Thromboplastin Ratio 0.8; Partial Thromboplastin Time 22.7 Seconds (21.0-31.0); Prothrombin Time 10.8 Seconds (9.0-12.0)
[2019-03-19 01:19] LABS: Alanine Aminotransferase 16 U/L (12-78); Albumin Level 2.7 gm/dl (3.4-5.0); Aspartate Aminotransferase 11 U/L (15-37); BUN Creatinine Ratio 29.8 (10-20); Bilirubin Direct < 0.1 mg/dl (0-0.2); Blood Urea Nitrogen 22 mg/dl (7-18); Calcium 8.1 mg/dl (8.5-10.1); Carbon Dioxide 27 mmol/L (21-32); Chloride 102 mmol/L (98-107); Creatinine Clr Calc Pharmacy 61.1 ml/min; Est GFR (African American) 95.1; Est GFR (Non-African American) 82.1; Glucose 143 mg/dl (70-99); Potassium 4.3 mmol/L (3.5-5.1); Sodium 136 mmol/L (136-145)
[2019-03-19 01:24] LABS: Alkaline Phosphatase 79 U/L (45-117); Bilirubin,Total 0.2 mg/dl (0.2-1); Total Protein 5.7 gm/dl (6.4-8.2); Troponin I < 0.015 ng/ml (0-0.045)
[2019-03-19 01:30] LABS: Basophils # (auto) 0.02 K/uL (0-0.2); Basophils % (auto) 0.1 %; Eosinophils # (auto) 0.04 K/uL (0-0.5); Eosinophils % (auto) 0.2 %; Immature Granulocytes # (auto) 0.12 K/uL (0.00-0.02); Immature Granulocytes % (auto) 0.6 %; Lymphocytes # (auto) 2.59 K/uL (1.2-3.4); Lymphocytes % (auto) 12.7 %; Monocytes # (auto) 0.83 K/uL (0.11-0.59); Monocytes % (auto) 4.1 %; Neutrophils # (auto) 16.86 K/uL (1.4-6.5); Neutrophils % (auto) 82.3 %; RBC Morphology Unremarkable
[2019-03-19] MEDS ORDERED: PANTOprazole 80 MG in DEXTROSE 5% 100 ML IV ONE (01:30)
[2019-03-19] MEDS: PANTOprazole 40 MG in DEXTROSE 5% 100 ML IV SCH ×5 (01:45→23:22)
--- NOTE | 2019-03-19 02:59 | History & Physical Report ---
Date of Service March 19, 2019 Assessment & Plan (1) Upper GI bleed: 68-year-old female was admitted on 19 March 2019 for suspected upper GI bleed. GI bleed: Patient notes some bright red blood BM today. Question of syncopal vs acute fatigue episode just prior. No known history of the same. Had some prodromal epigastric discomfort for 24 hours. Has been on naproxen near daily since September 2018 with increased dosing related to some chest discomfort in the past few weeks. - In ED, afebrile, not tachycardic, normotensive, with normal room SpO2. WBC 20. BUN 22. Negative troponin. - In ED, started on Protonix and normal saline IVF. Given Zofran. - Continue Protonix IV initially. Keep n.p.o and IVF. Consult gastroenterology. Anemia: As related to GI bleed. Hb 13.3 back in December. Admit Hb 9.1. INR 1.1. - Type and screen ordered in ED. Patient has received blood before years ago related to childbirth. - Hb q6h checks for next 24 hours. Ongoing medical issues: - PVCs: Apparently in December they were symptomatic, possibly related to anxiety. Continue home metoprolol. - Rheumatoid arthritis: On orencia and Tylenol. - Anxiety/depression: Continue home Xanax. Code status: Full code. Diet: NPO. DVT prophy: Held due to GI bleed. SCDs. PT/OT: Deferred. Disbo: Admit to [facility] with telemetry. (2) Anemia: (3) PVCs (premature ventricular contractions): (4) Rheumatoid arthritis: (5) Anxiety: (6) Depression: History of Present Illness Primary Care Provider: Napoleon Douglass 68-year-old female states that just prior to ED arrival she had an episode of bright red blood per rectum. She says over the past 24 hours or so she has had some epigastric discomfort. She does recall finding herself on the floor of her bathroom this afternoon but does not think she necessarily passed out, but rather thinks she may have lowered herself to the ground. She denies any headache or body/extremity acute pains. No known history of BRBPR. Says last colonoscopy about 12 years ago was normal and stool colorectal cancer screening subsequently has been negative. She does relate that she has been on Naprosyn for rheumatoid arthritis near daily since September 2018. She has been on the higher doses of this over the past couple months due to knee pain (and is now s/p left knee replacement in January 2019). She denies any concurrent vomiting. Has had a decreased appetite over the past month with some mild associated nausea. At present during this H&P she denies any abdominal discomfort, nausea, focal pains, or other acute concerns. - Past medical history includes rheumatoid arthritis, PVCs, anxiety, depression. - Past surgical history includes left knee replacement in January 2019, hysterectomy, laparotomy, foot surgery, ovarian cystectomy. - Social history includes quitting smoking about 3 years ago. Prior 40-year smoking history. Denies alcohol use. Lives at home with spouse. Allergies Allergy/AdvReac Type Severity Reaction Status Date / Time No Known Allergies Allergy Verified 03/19/19 00:56 Home Medications Home Medications Medication Instructions Recorded Confirmed Type metoprolol succinate 25 mg PO QPM 01/15/19 03/19/19 History metoprolol succinate 50 mg PO QAM 01/15/19 03/19/19 History aspirin 81 mg PO BID 03/05/19 03/19/19 History escitalopram oxalate 10 mg PO DAILY 03/05/19 03/19/19 History meloxicam 15 mg PO DAILY 03/05/19 03/19/19 History omeprazole 40 mg PO DAILY #30 cap 03/05/19 03/19/19 Rx alprazolam 0.5 mg PO BID 03/19/19 03/19/19 History celecoxib [Celebrex] 200 mg PO BID 03/19/19 03/19/19 History Past Med/Surg History Medical History Encounter for pre-operative examination Leaky heart valve HX-20 YRS AGO-ECHO DONE-NO F/U WITH RENTAL SALES ASSOCIATE REQUIRED. 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 OVARY-TREATED WITH WARFARIN X 3 MONTHS-NO ISSUES SINCE Surgical History History of knee replacement H/O foot surgery RIGHT BUNION H/O ovarian cystectomy History of section History of hysterectomy TOTAL History of laparotomy ECTOPIC Family History Father Family history of diabetes mellitus Social History Preferred Language: Kiswahili Communication Ability: Effective Beliefs That Will Affect Care: None marital status: Current Living Situation: Spouse Feels Safe at Home: Yes Smoking Status: Former smoker Second Hand Exposure: No Hx Alcohol Use: No Hx Substance Use: No Review of Systems Review of Systems: Constitutional: Denies fevers, chills, focal weakness Eyes: Denies any visual loss or diplopia ENT: Denies any ear/nose/throat pain or difficulty speaking or swallowing Respiratory: Denies any dyspnea, cough, hemoptysis Cardiovascular: Denies any chest pain or feeling of edema Gastrointestinal: Positive epigastric pain. Occasional nausea. Denies vomiting or diarrhea. Musculoskeletal: Denies any acute extremity pains, myalgias, or focal weakness Skin: Denies any known acute rashes or lesions Neuro: Denies any headache, acute focal weakness or numbness, or difficulties with speech or swallow. Physical Exam Physical Exam: GENERAL: Awake, alert, well-appearing, in no acute distress. HENT: Normocephalic, atraumatic. Oropharynx unremarkable. EYES: Normal conjunctiva. Sclera non-icteric. NECK: Inspection normal. Non-tender. Supple and full ROM. CARDIAC: +S1S2 RRR, no murmurs. RESPIRATORY: Clear to auscultation. No wheezes or rales. Normal respiratory effort. GI: +BS, soft, non-distended. No tenderness to palpation, including epigastrically. No rebound or guarding. EXTREMITIES: No pedal edema or calf tenderness. Moving all extremities naturally and easily. NEURO: No gross neuro deficits. Results & Data Vital Signs (Past 12 Hours) Vital Signs Temp Pulse Pulse Resp BP BP Pulse Ox 03/19/19 00:49 84 16 115/60 96 03/19/19 00:20 36.6 C 88 16 140/64 99 Laboratory Results 03/19/19 03/19/19 03/19/19 Range/Units 00:46 00:46 00:46 WBC 20.46 H (4.8-10.8) K/uL RBC 3.09 L (4.2-5.4) M/uL Hgb 9.1 L (12.0-16.0) g/dL Hct 28.5 L (37-47) % MCV 92.2 (80-100) fL MCH 29.4 (25-34) pg MCHC 31.9 L (32-36) g/dL RDW Std Deviation 45.7 (36.4-46.3) fL RDW Coeff of Prince 13.7 (11.5-14.5) % Plt Count 357 (130-400) K/uL MPV 9.5 (7.4-10.4) fL Immature Gran % (Auto) 0.6 % Neut % (Auto) 82.3 % Lymph % (Auto) 12.7 % [place] % (Auto) 4.1 % Eos % (Auto) 0.2 % Baso % (Auto) 0.1 % Immature Gran # (Auto) 0.12 H (0.00-0.02) K/uL Neut # (Auto) 16.86 H (1.4-6.5) K/uL Lymph # (Auto) 2.59 (1.2-3.4) K/uL [place] # (Auto) 0.83 H (0.11-0.59) K/uL Eos # (Auto) 0.04 (0-0.5) K/uL Baso # (Auto) 0.02 (0-0.2) K/uL RBC Morphology Unremarkable PT (9.0-12.0) Seconds INR (0.9-1.1) APTT (21.0-31.0) Seconds PTT Ratio Sodium 136 (136-145) mmol/L Potassium 4.3 (3.5-5.1) mmol/L Chloride 102 (98-107) mmol/L Carbon Dioxide 27 (21-32) mmol/L Anion Gap 7.0 (3-11) BUN 22 H (7-18) mg/dl Creatinine 0.74 (0.6-1.2) mg/dl Est Cr Clr Drug Dosing 61.1 ml/min Est GFR ( Amer) 95.1 Est GFR (Non-Af Amer) 82.1 BUN/Creatinine Ratio 29.8 H (10-20) Glucose 143 H (70-99) mg/dl Calcium 8.1 L (8.5-10.1) mg/dl Total Bilirubin 0.2 (0.2-1) mg/dl Direct Bilirubin < 0.1 (0-0.2) mg/dl AST 11 L (15-37) U/L ALT 16 (12-78) U/L Alkaline Phosphatase 79 (45-117) U/L Troponin I < 0.015 (0-0.045) ng/ml Total Protein 5.7 L (6.4-8.2) gm/dl Albumin 2.7 L (3.4-5.0) gm/dl Lipase 110 (73-393) U/L Blood Type O Positive Antibody Screen NEGATIVE 03/19/19 Range/Units 00:46 WBC (4.8-10.8) K/uL RBC (4.2-5.4) M/uL Hgb (12.0-16.0) g/dL Hct (37-47) % MCV (80-100) fL MCH (25-34) pg MCHC (32-36) g/dL RDW Std Deviation (36.4-46.3) fL RDW Coeff of Prince (11.5-14.5) % Plt Count (130-400) K/uL MPV (7.4-10.4) fL Immature Gran % (Auto) % Neut % (Auto) % Lymph % (Auto) % [place] % (Auto) % Eos % (Auto) % Baso % (Auto) % Immature Gran # (Auto) (0.00-0.02) K/uL Neut # (Auto) (1.4-6.5) K/uL Lymph # (Auto) (1.2-3.4) K/uL [place] # (Auto) (0.11-0.59) K/uL Eos # (Auto) (0-0.5) K/uL Baso # (Auto) (0-0.2) K/uL RBC Morphology PT 10.8 (9.0-12.0) Seconds INR 1.1 (0.9-1.1) APTT 22.7 (21.0-31.0) Seconds PTT Ratio 0.8 Sodium (136-145) mmol/L Potassium (3.5-5.1) mmol/L Chloride (98-107) mmol/L Carbon Dioxide (21-32) mmol/L Anion Gap (3-11) BUN (7-18) mg/dl Creatinine (0.6-1.2) mg/dl Est Cr Clr Drug Dosing ml/min Est GFR ( Amer) Est GFR (Non-Af Amer) BUN/Creatinine Ratio (10-20) Glucose (70-99) mg/dl Calcium (8.5-10.1) mg/dl Total Bilirubin (0.2-1) mg/dl Direct Bilirubin (0-0.2) mg/dl AST (15-37) U/L ALT (12-78) U/L Alkaline Phosphatase (45-117) U/L Troponin I (0-0.045) ng/ml Total Protein (6.4-8.2) gm/dl Albumin (3.4-5.0) gm/dl Lipase (73-393) U/L Blood Type Antibody Screen Medications Administered Sodium Chloride (Nss 1000ml) 1,000 mls @ 80 mls/hr IV .[id number] BRIJESH Stop: 04/18/19 00:29 Last Admin: 03/19/19 00:45 Dose: 80 mls/hr Documented by: [id number] Pantoprazole Sodium 40 mg/ (Dextrose) 100 mls @ 20 mls/hr IV Q5H BRIJESH Stop: 03/19/19 06:44 Last Admin: 03/19/19 01:45 Dose: 20 mls/hr Documented by: [id number] Discontinued Medications Famotidine (Pepcid 20mg Iv Push) 20 mg in 5 mls @ 2.5 mls/min IV NOW STA Stop: 03/19/19 00:31 Last Admin: 03/19/19 00:45 Dose: 2.5 mls/min Documented by: [id number] Pantoprazole Sodium 80 mg/ (Dextrose) 120 mls @ 480 mls/hr IV ONE ONE Stop: 03/19/19 01:44 Last Infusion: 03/19/19 02:05 Dose: 0 mls/hr Documented by: [id number] Admin: 03/19/19 01:45 Dose: 480 mls/hr Documented by: [id number] Ondansetron HCl (Zofran) 4 mg IV NOW STA Stop: 03/19/19 00:31 Last Admin: 03/19/19 00:45 Dose: 4 mg Documented by: [id number] Code Status & VTE Plan Code Status Full code VTE Prophylaxis Plan VTE Prophylaxis will be ordered: Yes Supervising Physician Co-Signing Physician Notes Patient seen and examined, chart reviewed, case discussed with Dr. Valadez and I agree with his assessment and plan as above. Briefly, patient is a 68yo C female presenting with melena/hematochezia in setting of incresaed NSAID use. On exam she is afebrile, hemodynamically stable. Physical exam otherwise unremarkable, abdominal exam benign Labs and images reviewed. Hg=9.1, Hct=28.5, WBC=20.46 Assessment/Plan: 68yo C female with suspected UGIB in setting of frequent NSAID use. -Admit to medical service -Protonix gtt -Trend CBC, transfuse if < 7, active bleeding or symptomatic anemia -GI consultation - appreciate assistance with this case -Remainder of plan as above PG Care Time/CCT Total # of Minutes Spent Total Time Spent with Patient: Total time spent is greater than 50% in coordination of care (as documented) at patient's floor/unit and/or counseling patient: Resident Activity Tracking Resident Involvement: Resident Care Provided Care Provided: Adult Hospital Medicine (1) Anemia Anemia type: unspecified type Qualified Code(s): D64.9 - Anemia, unspecified
[2019-03-19] MEDS ORDERED: ONDANSETRON INJ 2 MG/ML 2 ML VIAL IV PRN (03:42)
--- NOTE | 2019-03-19 03:43 | Emergency Department Note ---
Entered by Jo Ann Piper acting as a scribe for ED Provider Note Name: Tamiko Reyes Age: 68 F Arrives Via: Private vehicle Informant: Patient CC: Nausea HPI:The patient is a 68 year old female presenting to the Emergency Department complaining of intermittent nausea starting 1.5 months. The patient reports that she recently had a knee replacement and has been nauseous ever since. She s tates that she has been experiencing diarrhea as well as dark green/black stool for several days. 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 She notes that she has lost her appetite. She adds that she did not eat dinner but ate ice cream which worsened her nausea. 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 She states that she stopped taking Aspirin 1 week ago. She notes that she has been experiencing weeks of chest pain that resolved 1 day ago. She denies abdominal pain, vomiting and any history of stomach ulcers. ROS: See above HPI for pertinent positives & negatives. A total of 10 systems reviewed and were otherwise negative. Past Medical History: Leaky heart valve, Thrombosis of ovarian vein, Rheumatoid arthritis. Past Surgical History: section, hysterectomy, laparotomy, foot surgery, ovarian cystectomy, knee replacement. Family History: DM. Social History: Lives at home with spouse. Feels safe at home. Never a smoker. Home Medications: Alprazolam 0.25 mg PO, Aspirin 81 mg PO, Clarithromycin 500 mg PO, Escitalopram Oxalate 10 mg PO, Meloxicam 15 mg PO, Medrol Skinny, Metoprolol succinate 50 mg PO, Omeprazole 40 mg PO, Tramadol 50 mg PO. Allergies NKDA Physical: Vitals: BP: 140/64, Pulse: 88, Respirations: 16, Temperature: 97.9, O2 Saturation: 99, Delivery: Room air. Exam: GENERAL: Patient is anxious appearing and in no acute distress. EYES: No scleral icterus, unremarkable pupils. ENT: Mucous membranes moist, no nasal congestion. NECK: No masses appreciated, no meningismus, trachea is midline. RESPIRATORY: No dyspnea. Clear to auscultation and equal bilaterally. No wheeze, no rhonchi. CARDIOVASCULAR: Regular rate and rhythm. No murmurs, rubs, gallops appreciated. GASTROINTESTINAL: Abdomen soft, non-tender, no peritonitis. Bowel sounds positive. No masses appreciated. RECTAL: Bloody stool at rectum. No hemorrhoid. No tenderness to palpation. BACK: No midline tenderness, no CVA tenderness EXTREMITIES: Normal motion all extremities, no cyanosis, no edema. NEUROLOGIC: Alert and oriented, no acute motor or sensory deficits, no focal weakness, cranial nerves grossly intact. SKIN: No rash, no jaundice, no diaphoresis. ED Course: 0019: Prior Medical Record, Triage/Nursing Notes, Medications, Allergies reviewed by Me. The patient was evaluated in room A4B, and a complete history and physical examination were performed. 0113: I discussed the patients case with Dr. Villegas [facility] hospitalist. We discussed further imaging and lab tests. She will further evaluate the patient. 0115: I updated the patient at this time. Vital Signs: reviewed and remarkable for wnl Labs: Reviewed and remarkable for mild anemia from baseline Interventions: saline lock, pepcid 20mg IV, protonix 80mg bolus and gtt, nss infusion, zofran 4mg IV Consults: Dr Villegas who will bring in for further management Reassessments/Times: see above Blood pressure: Normal. No Referral necessary Disposition: Hospitalization Differentials: Etiologies such as esophagitis, variceal bleed, [place], [place] tear, gastritis, peptic ulcer disease, AVM, inflammatory bowel disease, ischemia, diverticulosis, colitis, malignancy, coagulopathy, thrombocytopenia, fissure, hemorrhoid and epistaxis as well as others were entertained. Medical Decision Making: Pleasant 68 yr old female with persistent nausea last few weeks worsening this evening and now having grossly bloody stools. Abdominal exam is benign. WBC is elevated though no fevers, tachycardia, hypotention nor findings of infection otherwise. With large amounts NSAIDs she has been on and ASA within the last week I must suspect that this is gastric in origin of bleeding. She is otherwise in no distress and feeling much better after zofran. Will hold on imaging at this time. I do not feel that ischemic gut is cause as she is not nearly in any distress to suggest this. Hospitalist evaluated and agrees with plan. Impression: Upper GI bleed, Anemia The scribe's documentation has been prepared under my direction and personally reviewed by me in its entirety. I confirm that the note above accurately reflects all work, treatment, procedures, and medical decision making performed by me. 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 OVARY-TREATED WITH WARFARIN X 3 MONTHS-NO ISSUES SINCE Surgical History History of knee replacement H/O foot surgery RIGHT BUNION H/O ovarian cystectomy History of section History of hysterectomy TOTAL History of laparotomy ECTOPIC Family History Father Family history of diabetes mellitus Social History Preferred Language: Bangladeshi Communication Ability: Effective Beliefs That Will Affect Care: None marital status: Current Living Situation: Spouse Feels Safe at Home: Yes Smoking Status: Former smoker Second Hand Exposure: No Hx Alcohol Use: No Hx Substance Use: No Results & Data Vital Signs Vital Signs - 24 hr 03/19/19 00:20 03/19/19 00:49 Temperature 36.6 C Temperature Source Oral Sepsis Recent Fever Within 48 Hours No Sepsis Action Taken by Nursing No Action Required Pulse Rate 88 Pulse Rate [Right] 84 Pulse Rhythm Regular Pulse Strength Normal Respiratory Rate 16 16 Respiratory Effort / Characteristics Non-Labored Spontaneous Non-Labored Spontaneous Respiratory Depth Normal Normal Blood Pressure 140/64 Blood Pressure [Right Arm] 115/60 Blood Pressure Mean 89 Blood Pressure Mean [Right Arm] 78 Blood Pressure Position Sitting Pulse Oximetry 99 96 Oxygen Delivery Method Room Air Room Air Home Medications Current Medication List: was personally reviewed by me Laboratory Data Attestation: I reviewed the patient's lab results. Result diagrams: 03/19/19 00:46 03/19/19 00:46 Lab Results 03/19/19 03/19/19 03/19/19 Range/Units 00:46 00:46 00:46 WBC 20.46 H (4.8-10.8) K/uL RBC 3.09 L (4.2-5.4) M/uL Hgb 9.1 L (12.0-16.0) g/dL Hct 28.5 L (37-47) % MCV 92.2 (80-100) fL MCH 29.4 (25-34) pg MCHC 31.9 L (32-36) g/dL RDW Std Deviation 45.7 (36.4-46.3) fL RDW Coeff of Prince 13.7 (11.5-14.5) % Plt Count 357 (130-400) K/uL MPV 9.5 (7.4-10.4) fL Immature Gran % (Auto) 0.6 % Neut % (Auto) 82.3 % Lymph % (Auto) 12.7 % [place] % (Auto) 4.1 % Eos % (Auto) 0.2 % Baso % (Auto) 0.1 % Immature Gran # (Auto) 0.12 H (0.00-0.02) K/uL Neut # (Auto) 16.86 H (1.4-6.5) K/uL Lymph # (Auto) 2.59 (1.2-3.4) K/uL [place] # (Auto) 0.83 H (0.11-0.59) K/uL Eos # (Auto) 0.04 (0-0.5) K/uL Baso # (Auto) 0.02 (0-0.2) K/uL RBC Morphology Unremarkable PT 10.8 (9.0-12.0) Seconds INR 1.1 (0.9-1.1) APTT 22.7 (21.0-31.0) Seconds PTT Ratio 0.8 Sodium (136-145) mmol/L Potassium (3.5-5.1) mmol/L Chloride (98-107) mmol/L Carbon Dioxide (21-32) mmol/L Anion Gap (3-11) BUN (7-18) mg/dl Creatinine (0.6-1.2) mg/dl Est Cr Clr Drug Dosing ml/min Est GFR ( Amer) Est GFR (Non-Af Amer) BUN/Creatinine Ratio (10-20) Glucose (70-99) mg/dl Calcium (8.5-10.1) mg/dl Total Bilirubin (0.2-1) mg/dl Direct Bilirubin (0-0.2) mg/dl AST (15-37) U/L ALT (12-78) U/L Alkaline Phosphatase (45-117) U/L Troponin I (0-0.045) ng/ml Total Protein (6.4-8.2) gm/dl Albumin (3.4-5.0) gm/dl Lipase (73-393) U/L Blood Type O Positive Antibody Screen NEGATIVE 03/19/19 Range/Units 00:46 WBC (4.8-10.8) K/uL RBC (4.2-5.4) M/uL Hgb (12.0-16.0) g/dL Hct (37-47) % MCV (80-100) fL MCH (25-34) pg MCHC (32-36) g/dL RDW Std Deviation (36.4-46.3) fL RDW Coeff of Prince (11.5-14.5) % Plt Count (130-400) K/uL MPV (7.4-10.4) fL Immature Gran % (Auto) % Neut % (Auto) % Lymph % (Auto) % [place] % (Auto) % Eos % (Auto) % Baso % (Auto) % Immature Gran # (Auto) (0.00-0.02) K/uL Neut # (Auto) (1.4-6.5) K/uL Lymph # (Auto) (1.2-3.4) K/uL [place] # (Auto) (0.11-0.59) K/uL Eos # (Auto) (0-0.5) K/uL Baso # (Auto) (0-0.2) K/uL RBC Morphology PT (9.0-12.0) Seconds INR (0.9-1.1) APTT (21.0-31.0) Seconds PTT Ratio Sodium 136 (136-145) mmol/L Potassium 4.3 (3.5-5.1) mmol/L Chloride 102 (98-107) mmol/L Carbon Dioxide 27 (21-32) mmol/L Anion Gap 7.0 (3-11) BUN 22 H (7-18) mg/dl Creatinine 0.74 (0.6-1.2) mg/dl Est Cr Clr Drug Dosing 61.1 ml/min Est GFR ( Amer) 95.1 Est GFR (Non-Af Amer) 82.1 BUN/Creatinine Ratio 29.8 H (10-20) Glucose 143 H (70-99) mg/dl Calcium 8.1 L (8.5-10.1) mg/dl Total Bilirubin 0.2 (0.2-1) mg/dl Direct Bilirubin < 0.1 (0-0.2) mg/dl AST 11 L (15-37) U/L ALT 16 (12-78) U/L Alkaline Phosphatase 79 (45-117) U/L Troponin I < 0.015 (0-0.045) ng/ml Total Protein 5.7 L (6.4-8.2) gm/dl Albumin 2.7 L (3.4-5.0) gm/dl Lipase 110 (73-393) U/L Blood Type Antibody Screen Administered Medications Sodium Chloride (Nss 1000ml) 1,000 mls @ 80 mls/hr IV .[id number] BRIJESH Stop: 04/18/19 00:29 Last Admin: 03/19/19 00:45 Dose: 80 mls/hr Documented by: [id number] Pantoprazole Sodium 40 mg/ (Dextrose) 100 mls @ 20 mls/hr IV Q5H BRIJESH Stop: 03/19/19 06:44 Last Admin: 03/19/19 01:45 Dose: 20 mls/hr Documented by: [id number] Discontinued Medications Famotidine (Pepcid 20mg Iv Push) 20 mg in 5 mls @ 2.5 mls/min IV NOW STA Stop: 03/19/19 00:31 Last Admin: 03/19/19 00:45 Dose: 2.5 mls/min Documented by: [id number] Pantoprazole Sodium 80 mg/ (Dextrose) 120 mls @ 480 mls/hr IV ONE ONE Stop: 03/19/19 01:44 Last Infusion: 03/19/19 02:05 Dose: 0 mls/hr Documented by: [id number] Admin: 03/19/19 01:45 Dose: 480 mls/hr Documented by: [id number] Ondansetron HCl (Zofran) 4 mg IV NOW STA Stop: 03/19/19 00:31 Last Admin: 03/19/19 00:45 Dose: 4 mg Documented by: [id number] Blood Pressure Blood Pressure Findings: Normal blood pressure Blood Pressure Disposition: further management by hospitalist Discharge Plan Visit Data Chief Complaint: Nausea Stated Complaint: NAUSEA/BLOODY STOOLS ED Provider: Dominic Lynch Discharge Problem: Upper GI bleed, Anemia Patient Disposition: Being Evaluated by Hospitalist Discharge Instructions Interventions: ED Discharge Assessment Last Done: 03/19/19 03:27 Discharge Problem: Anemia Qualifiers: Anemia type: unspecified type Qualified Code(s): D64.9 - Anemia, unspecified The scribe's documentation has been prepared under my direction and personally reviewed by me in its entirety. I confirm that the note above accurately reflects all work, treatment, procedures, and medical decision making performed by me.
[2019-03-19] MEDS ORDERED: ALPRAZolam 0.25 MG TABLET PO ONE (04:40)
[2019-03-19 06:22] LABS: Hematocrit (blood only) 26.9 % (37-47); Hemoglobin 8.8 g/dL (12.0-16.0)
[2019-03-19] MEDS: ESCITALOPRAM OXALATE 10 MG TAB PO SCH (08:43)
[2019-03-19] MEDS: METOPROLOL SUCC 50MG EXT REL TAB PO SCH (08:43)
[2019-03-19] MEDS ORDERED: ALPRAZolam 0.5 MG TABLET PO SCH (09:00)
--- NOTE | 2019-03-19 10:10 | Gastrointestinal Consultation ---
Date of Consultation March 19, 2019 Assessment & Plan (1) Acute epigastric pain: (2) Upper GI bleed: (3) Anemia: 1. Keep NPO for now. 2. Continue Protonix ggt at 8 mg/hr. 3. Reglan 10 mg IV now. 4. EGD with Dr. Stevenson today for further evaluation. 5. Additional recommendations pending results of testing. Supervising Physician Co-Signing Physician Notes Agree with CHRISTIE Sunshine as above Abd: Soft, NT, ND, +BS Continue current therapy Proceed with EGD History of Present Illness Reason for Consultation: GIB Requesting Physician: Dr. Valadez Attending Physician: Yue Chan MD History of Present Illness Patient is a 68 year-old female with a history of RA and prior knee replacement admitted with rectal bleeding which began abruptly last evening. States she has been having intermittent lumbar back and left knee arthralgias on NSAIDs for the past two months. She was initially using meloxicam but has more recently been using Celebrex. She is also taking a low dose aspirin. Bleeding was initially bright red in nature but is now becoming more claudia in nature. Last episode of bleeding was one hour ago. Denies any vomiting or hematemesis but is having some episodic epigastric pain. Rates the pain as 0/10 at present. H&H on 02/14/19 was noted to be 12.2/38.3 and was noted to be 8.8/26.9 this morning. She has been placed on NPO status since last evening and she reports that she has not had any oral intake since last evening. PPI ggt has been initiated. Allergies Allergy/AdvReac Type Severity Reaction Status Date / Time No Known Allergies Allergy Verified 03/19/19 00:56 Home Medications Home Medications Medication Instructions Recorded Confirmed Type metoprolol succinate 25 mg PO QPM 01/15/19 03/19/19 History metoprolol succinate 50 mg PO QAM 01/15/19 03/19/19 History aspirin 81 mg PO BID 03/05/19 03/19/19 History escitalopram oxalate 10 mg PO DAILY 03/05/19 03/19/19 History meloxicam 15 mg PO DAILY 03/05/19 03/19/19 History omeprazole 40 mg PO DAILY #30 cap 03/05/19 03/19/19 Rx alprazolam 0.5 mg PO BID 03/19/19 03/19/19 History celecoxib [Celebrex] 200 mg PO BID 03/19/19 03/19/19 History Patient History Medical History Encounter for pre-operative examination Leaky heart valve HX-20 YRS AGO-ECHO DONE-NO F/U WITH SVP DIGITAL AD SALES REQUIRED. 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 Beliefs That Will Affect Care: None marital status: Current Living Situation: Spouse Other Information That Helps Us Care for You: No Feels Safe at Home: Yes Safety Concerns: Feels Safe At This Time Smoking Status: Former smoker Do You Dip or Chew Tobacco: No Second Hand Exposure: No Tobacco Cessation Education Requested by Patient: No Hx Alcohol Use: No Hx Substance Use: No Review of Systems Review of Systems: All systems reviewed & are unremarkable except as noted in HPI & below Physical Exam Constitutional: WD/WN, vitals as above Eyes: EOM intact bilaterally Neck: normal appearance Respiratory: normal respiratory effort, lungs clear to auscultation Cardiovascular: Rate/Rhythm: regular rate and regular rhythm Gastrointestinal (Abdomen): Inspection/Auscultation: + hyperactive bowel sounds Percussion/Palpation: abdomen soft; abdomen nontender Musculoskeletal: Extremities: no cyanosis Skin: no rashes, warm and dry Psychiatric: A+Ox3, euthymic affect Results & Data Vital Signs (Past 12 Hours) Vital Signs Temp Pulse Pulse Pulse Resp BP BP 03/19/19 08:00 36.8 C 104 H 18 134/68 03/19/19 07:26 95 H 03/19/19 03:42 108 H 03/19/19 03:40 36.7 C 98 H 16 03/19/19 03:23 74 16 03/19/19 00:49 84 16 03/19/19 00:20 36.6 C 88 16 140/64 BP Pulse Ox 03/19/19 08:00 99 03/19/19 07:26 03/19/19 03:42 03/19/19 03:40 118/73 94 03/19/19 03:23 113/74 98 03/19/19 00:49 115/60 96 03/19/19 00:20 99 Laboratory Results Abnormal lab results 03/19/19 03/19/19 03/19/19 Range/Units 00:46 00:46 06:07 WBC 20.46 H (4.8-10.8) K/uL RBC 3.09 L (4.2-5.4) M/uL Hgb 9.1 L 8.8 L (12.0-16.0) g/dL Hct 28.5 L 26.9 L (37-47) % MCHC 31.9 L (32-36) g/dL Immature Gran # (Auto) 0.12 H (0.00-0.02) K/uL Neut # (Auto) 16.86 H (1.4-6.5) K/uL [place] # (Auto) 0.83 H (0.11-0.59) K/uL BUN 22 H (7-18) mg/dl BUN/Creatinine Ratio 29.8 H (10-20) Glucose 143 H (70-99) mg/dl Calcium 8.1 L (8.5-10.1) mg/dl AST 11 L (15-37) U/L Total Protein 5.7 L (6.4-8.2) gm/dl Albumin 2.7 L (3.4-5.0) gm/dl (1) Anemia Anemia type: unspecified type Qualified Code(s): D64.9 - Anemia, unspecified
[2019-03-19] MEDS ORDERED: METOCLOPRAMIDE HCL INJ 5 MG/ML 2 ML VIAL IV STA (10:23)
[2019-03-19 12:03] LABS: Hematocrit (blood only) 25.7 % (37-47); Hemoglobin 8.3 g/dL (12.0-16.0)
--- NOTE | 2019-03-19 13:32 | Anesthesiology Consultation ---
Date of Service March 19, 2019 Assessment & Plan (1) Encounter for pre-operative examination: Chart Review Chart Review: Acceptable Risk for Surgery and Patient NOT seen in Pre Admission Testing Consults Requested none History Surgery Operation Date: 03/19/19 10:00 Proposed Procedures p Esophagogastroduodenoscopy Dr Stevenson - Seven Sanches Case, DO Height/Weight Height: 5 ft 3 in Weight: 66.5 kg Allergies Allergy/AdvReac Type Severity Reaction Status Date / Time No Known Allergies Allergy Verified 03/19/19 00:56 Medications Home Medications Medication Instructions Recorded Confirmed Last Taken metoprolol succinate 25 mg PO QPM 01/15/19 03/19/19 03/04/19 metoprolol succinate 50 mg PO QAM 01/15/19 03/19/19 03/04/19 aspirin 81 mg PO BID 03/05/19 03/19/19 03/04/19 escitalopram oxalate 10 mg PO DAILY 03/05/19 03/19/19 03/04/19 meloxicam 15 mg PO DAILY 03/05/19 03/19/19 03/04/19 omeprazole 40 mg PO DAILY #30 cap 03/05/19 03/19/19 Unknown alprazolam 0.5 mg PO BID 03/19/19 03/19/19 Unknown celecoxib [Celebrex] 200 mg PO BID 03/19/19 03/19/19 Unknown Active Medications Generic Name Dose Route Start Last Admin Trade Name Freq PRN Reason Stop Dose Admin Escitalopram Oxalate 10 mg 03/19/19 09:00 03/19/19 08:43 Lexapro Tab PO 04/18/19 08:59 10 mg DAILY BRIJESH Administration Sodium Chloride 1,000 mls @ 80 mls/hr 03/19/19 00:30 03/19/19 00:45 Nss 1000ml IV 04/18/19 00:29 80 mls/hr .[id number] BRIJESH Administration Pantoprazole Sodium 40 mg/ 100 mls @ 20 mls/hr 03/19/19 01:45 03/19/19 10:31 Dextrose IV 04/18/19 01:44 20 mls/hr Q5H BRIJESH Administration Metoprolol Succinate 50 mg 03/19/19 09:00 03/19/19 08:43 Toprol Xl PO 04/18/19 08:59 50 mg QAM BRIJESH Administration Past Medical History Medical History Encounter for pre-operative examination Leaky heart valve HX-20 YRS AGO-ECHO DONE-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 NO MURMUR APPRECIATED ON EXAM AT PAT 4/ Rheumatoid arthritis Thrombosis of ovarian vein AGE 30 WITH VAGINAL CHILDBIRTH/INFECTION OVARY-TREATED WITH WARFARIN X 3 MONTHS-NO ISSUES SINCE Past Family History Family History Father Family history of diabetes mellitus Past Surgical History Surgical History History of knee replacement H/O foot surgery RIGHT BUNION H/O ovarian cystectomy History of section History of hysterectomy TOTAL History of laparotomy ECTOPIC Social History Smoking Status: Former smoker Do You Dip or Chew Tobacco: No Hx Alcohol Use: No Hx Substance Use: No substance use type: does not use Physical Exam Vital Signs Last Vital Signs Temp 37.1 C 03/19/19 13:21 Pulse 84 03/19/19 13:21 Resp 16 03/19/19 13:21 BP 121/70 03/19/19 13:21 Pulse Ox 96 03/19/19 13:21 Testing Laboratory Results 03/19/19 11:54 03/19/19 00:46 PT 10.8 Seconds (9.0-12.0) 03/19/19 00:46 INR 1.1 (0.9-1.1) 03/19/19 00:46 APTT 22.7 Seconds (21.0-31.0) 03/19/19 00:46 Blood Type O Positive 03/19/19 00:46 Antibody Screen NEGATIVE 03/19/19 00:46
[2019-03-19] MEDS ORDERED: ATROPINE SULFATE 0.1 MG/ML 10ML SYR IV PRN (13:36)
[2019-03-19] MEDS ORDERED: ePHEDrine sulfate 50 MG/ML AMP IV PRN (13:36)
--- NOTE | 2019-03-19 14:28 | GI REPORT ---
Patient Name: Tamiko Reyes Procedure Date: 03/19/2019 1:39 PM Date of : 1950 Admit Type: Inpatient Age: 68 Gender: Female Attending MD: Seven Stevenson DO Procedure: Upper GI endoscopy Providers: Seven Stevenson DO Referring MD: Yue Chan Md Indications: Melena Medicines: Monitored Anesthesia Care Complications: No immediate complications. Estimated Blood Loss: Estimated blood loss: none. Procedure: Pre-Anesthesia Assessment: - Prior to the procedure, a History and Physical was performed, and patient medications and allergies were reviewed. The patient's tolerance of previous anesthesia was also reviewed. The risks and benefits of the procedure and the sedation options and risks were discussed with the patient. All questions were answered, and informed consent was obtained. Prior Anticoagulants: The patient has taken aspirin, last dose was 10 days prior to procedure. ASA Grade Assessment: II - A patient with mild systemic disease. After reviewing the risks and benefits, the patient was deemed in satisfactory condition to undergo the procedure. After obtaining informed consent, the endoscope was passed under direct vision. Throughout the procedure, the patient's blood pressure, pulse, and oxygen saturations were monitored continuously. The Endoscope was introduced through the mouth, and advanced to the second part of duodenum. The upper GI endoscopy was accomplished without difficulty. The patient tolerated the procedure well. Findings: The esophagus was normal. The stomach was normal. One non-obstructing oozing cratered duodenal ulcer with a visible vessel was found in the duodenal bulb. The lesion was fifteen mm by twenty-five mm in largest dimension. There is no evidence of perforation. Area was successfully injected with 5 mL of a 1:10,000 solution of epinephrine for hemostasis. Fulguration to ablate the lesion by heater probe was successful. Impression: - Normal esophagus. - Normal stomach. - One non-obstructing oozing duodenal ulcer with a visible vessel. NSAID induced etiology. There is no evidence of perforation. Injected. Treated with a heater probe. - No specimens collected. Recommendation: - [facility]. - Give Protonix (pantoprazole): 8 mg/hr IV by continuous infusion for 3 days. - Clear liquid diet. Seven Stevenson DO 03/19/2019 2:28:19 PM This report has been signed electronically. Note Initiated On: 03/19/2019 1:39 PM Number of Addenda: 0 I attest to the content of the Intraoperative Record and orders documented therein, exceptions below {[id number]}
--- NOTE | 2019-03-19 15:14 | Anesthesiology Progress Note ---
Date of Service March 19, 2019 Anesthesia Post Procedure Vital Signs Vital Signs: Temp Pulse Pulse Pulse Resp BP BP 03/19/19 14:54 72 16 154/66 H 03/19/19 14:38 75 16 152/115 H 03/19/19 14:24 75 12 157/87 H 03/19/19 13:21 37.1 C 84 84 16 121/70 03/19/19 11:51 36.6 C 82 19 107/66 03/19/19 08:00 36.8 C 104 H 18 134/68 03/19/19 07:26 95 H 03/19/19 03:42 108 H 03/19/19 03:40 36.7 C 98 H 16 03/19/19 03:23 74 16 03/19/19 00:49 84 16 03/19/19 00:20 36.6 C 88 16 140/64 BP Pulse Ox 03/19/19 14:54 96 03/19/19 14:38 94 03/19/19 14:24 96 03/19/19 13:21 96 03/19/19 11:51 94 03/19/19 08:00 99 03/19/19 07:26 03/19/19 03:42 03/19/19 03:40 118/73 94 03/19/19 03:23 113/74 98 03/19/19 00:49 115/60 96 03/19/19 00:20 99 Pain Intensity Upper Medial Abdomen: Pain Intensity: 7 Transfer of Care Handoff Completed per policy Notes Mental Status: alert / awake / arousable Patient Amnestic to Procedure: Yes Nausea / Vomiting: adequately controlled Pain: adequately controlled Airway Patency, RR, SpO2: stable & adequate BP & HR: stable & adequate Hydration State: stable & adequate Anesthetic Complications: no major complications apparent and Pt Satisfied with anesthetic care
--- NOTE | 2019-03-19 17:01 | Hospitalist Progress Note ---
Date of Service March 19, 2019 Assessment & Plan (1) Upper GI bleed: This pt is a 68-year-old female with a h/o RA on NSAIDs, anxiety, PVCs who was admitted on 19 March 2019 for GI bleed. Question of syncopal vs presyncopal episode just prior to admission and she was on the bathroom floor for a brief time. Had some prodromal epigastric discomfort for 24 hours. Has been on naproxen near daily since September 2018 with increased dosing related to some chest discomfort in the past few weeks. -remains afebrile, not tachycardic, normotensive, with normal room SpO2. WBC 20. BUN 22. Negative troponin. -now with known duodenal ulcer seen on EGD -continue Protonix gtt x 3 days as per GI recommendation -add carafate prn breakthrough epigastric pain -Abd xray on 03/19 s/p EGD without evidence of perforation -continue normal saline IVF -ok for clears diet for now -dc all NSAIDs -Appreciate GI consultation (2) Duodenal ulcer: found on EGD actively bleeding and treated with epi injection and fulguration -tx as above (3) Anemia: Acute blood loss anemia sloan to UGI Bleed from duodenal ulcer Hemodynamically stable at this time Hb 13.3 back in December. Admit Hb 9.1. INR 1.1. With continued bleeding overnight and oozing blood actively on EGD today with epi injected and fulguration of ulcer--> hgb now down to 7.8 -Consented for PRBC transfusion today -will check H&H in another 6 hours at 2359 -transfuse PRBCs if hgb<7.5 on next check or if becomes hemodynamically stable at any time (4) PVCs (premature ventricular contractions): Previously symptomatic, now minimal since starting on Toprol in 12/2018 by PCP -continue Toprol (5) Rheumatoid arthritis: Stable, follows with Rheum Dr. Es Barreto - On orencia -was taking frequent NSAIDs as above -dc all NSAIDs permanently -continue tylenol prn pain -will need Rheum f/u as outpt to come up with alternative treatment if RA symptoms are worsening after being off NSAID (6) Anxiety: continue prn xanax qhs (7) Depression: -continue on Lexapro (8) DVT prophylaxis: SCDs, no chemoprophylaxis due to GI bleeding Subjective Saw pt twice today-initially this AM she was c/o continued intermittent epigastric abdominal pain that was nonradiating except with some occasional heartburn. She had several bloody BMs through the night but then reported having a green stool this AM. Denies chest pain. Her reported back and rib pain bilaterally that was ongoing for 1 month or more is now resolved for the last 3- 5 days. Denies nausea. Denies SOB. Tele with NSR rates 90-100s. I saw the pt then after her EGD to consent her for PRBC transfusion in case needed and to discuss her EGD results. She was continuing ot have epigastric abd pain initially at a 6/10 which then improved on its own to a 4/10, nonradiating. RN reported later she did have a black BM after I saw her the second timeand hgb dropped slightly further to 7.8. Discussed the case with Dr. Stevenson who suggested Abd xray and carafate. Review of Systems Review of Systems: All systems reviewed & are unremarkable except as noted in HPI & below Physical Exam Constitutional: WD/WN, vitals as above Eyes: PERRL, conjunctivae normal, anicteric sclerae ENMT: external ear and nose normal, oropharynx normal Neck: trachea midline, no thyromegaly Respiratory: normal respiratory effort, lungs clear to auscultation Cardiovascular: RRR, no murmur, no edema Chest (Breasts): Chest: normal inspection of chest (no TTP over sternum or ribs) Gastrointestinal (Abdomen): normal bowel sounds, soft, nontender, no hepatosplenomegaly Musculoskeletal: Extremities: extremities normal to inspection; no cyanosis and no clubbing Skin: no rashes, warm and dry Neurologic: moves all extremities and awake; no focal motor deficits Psychiatric: A+Ox3, euthymic affect Results & Data Vital Signs (Past 12 Hours) Vital Signs Temp Pulse Pulse Pulse Resp BP Pulse Ox 03/19/19 14:54 72 16 154/66 H 96 03/19/19 14:38 75 16 152/115 H 94 03/19/19 14:24 75 12 157/87 H 96 03/19/19 13:21 37.1 C 84 84 16 121/70 96 03/19/19 11:51 36.6 C 82 19 107/66 94 03/19/19 08:00 36.8 C 104 H 18 134/68 99 03/19/19 07:26 95 H Laboratory Results 03/19/19 03/19/19 03/19/19 Range/Units 17:48 11:54 06:07 WBC (4.8-10.8) K/uL RBC (4.2-5.4) M/uL Hgb 7.8 L 8.3 L 8.8 L (12.0-16.0) g/dL Hct 24.3 L 25.7 L 26.9 L (37-47) % MCV (80-100) fL MCH (25-34) pg MCHC (32-36) g/dL RDW Std Deviation (36.4-46.3) fL RDW Coeff of Prince (11.5-14.5) % Plt Count (130-400) K/uL MPV (7.4-10.4) fL Immature Gran % (Auto) % Neut % (Auto) % Lymph % (Auto) % [place] % (Auto) % Eos % (Auto) % Baso % (Auto) % Immature Gran # (Auto) (0.00-0.02) K/uL Neut # (Auto) (1.4-6.5) K/uL Lymph # (Auto) (1.2-3.4) K/uL [place] # (Auto) (0.11-0.59) K/uL Eos # (Auto) (0-0.5) K/uL Baso # (Auto) (0-0.2) K/uL RBC Morphology PT (9.0-12.0) Seconds INR (0.9-1.1) APTT (21.0-31.0) Seconds PTT Ratio Sodium (136-145) mmol/L Potassium (3.5-5.1) mmol/L Chloride (98-107) mmol/L Carbon Dioxide (21-32) mmol/L Anion Gap (3-11) BUN (7-18) mg/dl Creatinine (0.6-1.2) mg/dl Est Cr Clr Drug Dosing ml/min Est GFR ( Amer) Est GFR (Non-Af Amer) BUN/Creatinine Ratio (10-20) Glucose (70-99) mg/dl Calcium (8.5-10.1) mg/dl Total Bilirubin (0.2-1) mg/dl Direct Bilirubin (0-0.2) mg/dl AST (15-37) U/L ALT (12-78) U/L Alkaline Phosphatase (45-117) U/L Troponin I (0-0.045) ng/ml Total Protein (6.4-8.2) gm/dl Albumin (3.4-5.0) gm/dl Lipase (73-393) U/L Blood Type Antibody Screen 03/19/19 03/19/19 03/19/19 Range/Units 00:46 00:46 00:46 WBC 20.46 H (4.8-10.8) K/uL RBC 3.09 L (4.2-5.4) M/uL Hgb 9.1 L (12.0-16.0) g/dL Hct 28.5 L (37-47) % MCV 92.2 (80-100) fL MCH 29.4 (25-34) pg MCHC 31.9 L (32-36) g/dL RDW Std Deviation 45.7 (36.4-46.3) fL RDW Coeff of Prince 13.7 (11.5-14.5) % Plt Count 357 (130-400) K/uL MPV 9.5 (7.4-10.4) fL Immature Gran % (Auto) 0.6 % Neut % (Auto) 82.3 % Lymph % (Auto) 12.7 % [place] % (Auto) 4.1 % Eos % (Auto) 0.2 % Baso % (Auto) 0.1 % Immature Gran # (Auto) 0.12 H (0.00-0.02) K/uL Neut # (Auto) 16.86 H (1.4-6.5) K/uL Lymph # (Auto) 2.59 (1.2-3.4) K/uL [place] # (Auto) 0.83 H (0.11-0.59) K/uL Eos # (Auto) 0.04 (0-0.5) K/uL Baso # (Auto) 0.02 (0-0.2) K/uL RBC Morphology Unremarkable PT (9.0-12.0) Seconds INR (0.9-1.1) APTT (21.0-31.0) Seconds PTT Ratio Sodium 136 (136-145) mmol/L Potassium 4.3 (3.5-5.1) mmol/L Chloride 102 (98-107) mmol/L Carbon Dioxide 27 (21-32) mmol/L Anion Gap 7.0 (3-11) BUN 22 H (7-18) mg/dl Creatinine 0.74 (0.6-1.2) mg/dl Est Cr Clr Drug Dosing 61.1 ml/min Est GFR ( Amer) 95.1 Est GFR (Non-Af Amer) 82.1 BUN/Creatinine Ratio 29.8 H (10-20) Glucose 143 H (70-99) mg/dl Calcium 8.1 L (8.5-10.1) mg/dl Total Bilirubin 0.2 (0.2-1) mg/dl Direct Bilirubin < 0.1 (0-0.2) mg/dl AST 11 L (15-37) U/L ALT 16 (12-78) U/L Alkaline Phosphatase 79 (45-117) U/L Troponin I < 0.015 (0-0.045) ng/ml Total Protein 5.7 L (6.4-8.2) gm/dl Albumin 2.7 L (3.4-5.0) gm/dl Lipase 110 (73-393) U/L Blood Type O Positive Antibody Screen NEGATIVE 03/19/19 Range/Units 00:46 WBC (4.8-10.8) K/uL RBC (4.2-5.4) M/uL Hgb (12.0-16.0) g/dL Hct (37-47) % MCV (80-100) fL MCH (25-34) pg MCHC (32-36) g/dL RDW Std Deviation (36.4-46.3) fL RDW Coeff of Prince (11.5-14.5) % Plt Count (130-400) K/uL MPV (7.4-10.4) fL Immature Gran % (Auto) % Neut % (Auto) % Lymph % (Auto) % [place] % (Auto) % Eos % (Auto) % Baso % (Auto) % Immature Gran # (Auto) (0.00-0.02) K/uL Neut # (Auto) (1.4-6.5) K/uL Lymph # (Auto) (1.2-3.4) K/uL [place] # (Auto) (0.11-0.59) K/uL Eos # (Auto) (0-0.5) K/uL Baso # (Auto) (0-0.2) K/uL RBC Morphology PT 10.8 (9.0-12.0) Seconds INR 1.1 (0.9-1.1) APTT 22.7 (21.0-31.0) Seconds PTT Ratio 0.8 Sodium (136-145) mmol/L Potassium (3.5-5.1) mmol/L Chloride (98-107) mmol/L Carbon Dioxide (21-32) mmol/L Anion Gap (3-11) BUN (7-18) mg/dl Creatinine (0.6-1.2) mg/dl Est Cr Clr Drug Dosing ml/min Est GFR ( Amer) Est GFR (Non-Af Amer) BUN/Creatinine Ratio (10-20) Glucose (70-99) mg/dl Calcium (8.5-10.1) mg/dl Total Bilirubin (0.2-1) mg/dl Direct Bilirubin (0-0.2) mg/dl AST (15-37) U/L ALT (12-78) U/L Alkaline Phosphatase (45-117) U/L Troponin I (0-0.045) ng/ml Total Protein (6.4-8.2) gm/dl Albumin (3.4-5.0) gm/dl Lipase (73-393) U/L Blood Type Antibody Screen PG Care Time/CCT Total # of Minutes Spent Total Time Spent with Patient: Total time spent is greater than 50% in coordination of care (as documented) at patient's floor/unit and/or counseling patient: (1) Anemia Anemia type: unspecified type Qualified Code(s): D64.9 - Anemia, unspecified
[2019-03-19 18:13] LABS: Hematocrit (blood only) 24.3 % (37-47); Hemoglobin 7.8 g/dL (12.0-16.0)
--- NOTE | 2019-03-19 18:35 | XRay Report ---
XR abdomen 2V w PA chest CLINICAL HISTORY: abdominal pain, r/o perforation,has duodenal ulcer COMPARISON STUDY: No previous studies for comparison. FINDINGS: The soft tissues, psoas shadows, renal outlines and intestinal gas pattern appear normal. T here is no evidence for bowel obstruction. There is no evidence for free intraperitoneal air. No abno rmal abdominal calcifications are seen. A frontal view of the chest was performed and is unremarkable . IMPRESSION: Normal study. The above report was generated using voice recognition software. It may contain grammatical, syntax or spelling errors. Electronically signed by: Nj Snider M.D. 03/19/2019 6:34 PM
[2019-03-19] MEDS: SUCRALFATE 1 GM/10 ML UDC PO PRN (19:10)
[2019-03-19] MEDS: METOPROLOL SUCC 25MG EXT REL TAB PO SCH (21:11)
[2019-03-19] MEDS: ALPRAZolam 0.25 MG TABLET PO SCH (21:12)
[2019-03-20 00:21] LABS: Hematocrit (blood only) 23.6 % (37-47); Hemoglobin 7.6 g/dL (12.0-16.0)
[2019-03-20] MEDS: PANTOprazole 40 MG in DEXTROSE 5% 100 ML IV SCH ×5 (03:58→22:13)
[2019-03-20] MEDS: SODIUM CHLORIDE 0.9% 1000ML 1,000 ML IV SCH ×2 (04:01→17:13)
[2019-03-20] MEDS: ESCITALOPRAM OXALATE 10 MG TAB PO SCH (07:53)
[2019-03-20] MEDS: METOPROLOL SUCC 50MG EXT REL TAB PO SCH (07:53)
[2019-03-20] MEDS: SUCRALFATE 1 GM/10 ML UDC PO PRN ×2 (07:54→12:36)
--- NOTE | 2019-03-20 09:43 | Gastroenterology Progress Note ---
Date of Service March 20, 2019 Assessment & Plan (1) Acute epigastric pain: (2) Upper GI bleed: (3) Anemia: 1. Clear liquid diet today. Can advance diet slowly as tolerated tomorrow. 2. Continue Protonix ggt at 8 mg/hr for a total of 72 hours. 3. Reinforced the importance of NSAID avoidance and she states "I will never take those again". 4. Supportive care per primary team. (4) Duodenal ulcer: Supervising Physician Co-Signing Physician Notes Agree with CHRISTIE Sunshine as above Abd: Soft, NT, ND, +BS Continue Protonix gtt for 72 hours total Continue Carafate 1g by mouth QID AC and HS for 10 days Transfuse PRN to maintain H/H around 8/24 Subjective Patient reports improved epigastric and substernal chest pain. States she is beginning to have a returning appetite. Remains on clear liquid diet for now as well as PPI ggt in the setting of endoscopic findings of duodenal ulceration with stigmata requiring hemostasis. H&H did drop slightly overnight and was noted to be 7.6/23.6 this morning. No further rectal bleeding. Review of Systems Review of Systems: All systems reviewed & are unremarkable except as noted in HPI & below Physical Exam Constitutional: WD/WN, vitals as above Respiratory: normal respiratory effort, lungs clear to auscultation Cardiovascular: Rate/Rhythm: regular rate and regular rhythm Gastrointestinal (Abdomen): Inspection/Auscultation: normal bowel sounds Percussion/Palpation: abdomen soft; abdomen nontender Psychiatric: A+Ox3, euthymic affect Results & Data Vital Signs (Past 12 Hours) Vital Signs Temp Pulse Pulse Resp BP Pulse Ox 03/20/19 07:19 37.0 C 85 18 133/65 94 03/20/19 04:10 37.1 C 78 20 125/72 96 03/20/19 00:00 85 03/19/19 23:28 36.7 C 85 18 112/64 95 Laboratory Results Abnormal lab results 03/19/19 03/19/19 03/20/19 Range/Units 11:54 17:48 00:01 Hgb 8.3 L 7.8 L 7.6 L (12.0-16.0) g/dL Hct 25.7 L 24.3 L 23.6 L (37-47) % (1) Anemia Anemia type: unspecified type Qualified Code(s): D64.9 - Anemia, unspecified
[2019-03-20 10:33] LABS: Hematocrit (blood only) 22.6 % (37-47); Hemoglobin 7.3 g/dL (12.0-16.0); Mean Corpuscular Hgb Conc 32.3 g/dL (32-36); Mean Corpuscular Volume 93.4 fL (80-100); Mean Platelet Volume 8.9 fL (7.4-10.4); Platelet Count 285 K/uL (130-400); RDW Standard Deviation 48.3 fL (36.4-46.3); Red Blood Count 2.42 M/uL (4.2-5.4); White Blood Count 9.63 K/uL (4.8-10.8)
[2019-03-20 10:41] LABS: Basophils # (auto) 0.04 K/uL (0-0.2); Basophils % (auto) 0.4 %; Eosinophils # (auto) 0.09 K/uL (0-0.5); Eosinophils % (auto) 0.9 %; Immature Granulocytes # (auto) 0.03 K/uL (0.00-0.02); Immature Granulocytes % (auto) 0.3 %; Lymphocytes # (auto) 1.74 K/uL (1.2-3.4); Lymphocytes % (auto) 18.1 %; Monocytes # (auto) 0.61 K/uL (0.11-0.59); Monocytes % (auto) 6.3 %; Neutrophils # (auto) 7.12 K/uL (1.4-6.5)
[2019-03-20 10:53] LABS: Creatinine Clr Calc Pharmacy 71.9 ml/min; Est GFR (African American) 103.2; Est GFR (Non-African American) 89.1; Potassium 3.5 mmol/L (3.5-5.1)
[2019-03-20] MEDS ORDERED: SODIUM CHLORIDE 0.9% 250 ML IV PRN (12:21)
--- NOTE | 2019-03-20 16:59 | Hospitalist Progress Note ---
Date of Service March 20, 2019 Assessment & Plan (1) Upper GI bleed: This pt is a 68-year-old female with a h/o RA on NSAIDs, anxiety, PVCs who was admitted on 19 March 2019 for GI bleed. Question of syncopal vs presyncopal episode just prior to admission and she was on the bathroom floor for a brief time. Had some prodromal epigastric discomfort for 24 hours. Has been on naproxen near daily since September 2018 with increased dosing related to some chest discomfort in the past few weeks. -found to have large duodenal ulcer seen on EGD-cauterized and injected with epi -contiues to be passing old blood today but most recent stool was clear liquid -continue Protonix gtt x 3 days as per GI recommendation-today day#2 -continue carafate prn breakthrough epigastric pain -Abd xray on 03/19 s/p EGD without evidence of perforation -dc normal saline IVF -continue clears diet only -dcd all NSAIDs permanently -Appreciate GI consultation (2) Duodenal ulcer: found on EGD actively bleeding and treated with epi injection and fulguration -tx as above -will end up sending home with PPI bid -will need to check with GI to see if needs repeat EGD in 6-8 weeks (3) Anemia: Acute blood loss anemia sloan to UGI Bleed from duodenal ulcer Continues to be Hemodynamically stable at this time Hb 13.3 back in December. Admit Hb 9.1. INR 1.1. Had oozing blood actively on EGD with epi injected and fulguration of ulcer--> hgb now down to 7.3 -transfused 2 units PRBC on 03/20 -will check CBC again at 2000 and again in the AM (4) PVCs (premature ventricular contractions): Previously symptomatic, now minimal since starting on Toprol in 12/2018 by PCP Tele today with short burst PAT, not overly concerning -continue Toprol (5) Rheumatoid arthritis: Stable, follows with Rheum Dr. Es Barreto - On Orencia -was taking frequent NSAIDs as above -dc all NSAIDs permanently -continue tylenol prn pain -will need Rheum f/u as outpt to come up with alternative treatment if RA symptoms are worsening after being off NSAID (6) Anxiety: continue prn xanax qhs (7) Depression: -continue on Lexapro (8) DVT prophylaxis: SCDs, no chemoprophylaxis due to GI bleeding Dispo- remain on med-tele Subjective Pt had multiple stools today, some had dark green/black stool and some maroon- colored liquid stool. Her most recent stool however was just clear liquid. No further epigastric pain. Has had some of her previous "sternum" pain. Denies SOB or chest pain, no lightheadedness. Is feeling "bummed" about having a serious medical problem. Tele with NSR, burst of PAT at 1030 Review of Systems Review of Systems: All systems reviewed & are unremarkable except as noted in HPI & below Physical Exam Constitutional: WD/WN, vitals as above Eyes: PERRL, conjunctivae normal, anicteric sclerae ENMT: external ear and nose normal, oropharynx normal Neck: trachea midline, no thyromegaly Respiratory: normal respiratory effort, lungs clear to auscultation Cardiovascular: RRR, no murmur, no edema Chest (Breasts): Chest: normal inspection of chest (no TTP over sternum or ribs) Gastrointestinal (Abdomen): normal bowel sounds, soft, nontender, no hepatosplenomegaly Musculoskeletal: Extremities: extremities normal to inspection; no cyanosis and no clubbing Skin: no rashes, warm and dry Neurologic: moves all extremities and awake; no focal motor deficits Psychiatric: A+Ox3, euthymic affect Results & Data Vital Signs (Past 12 Hours) Vital Signs Temp Pulse Pulse Resp BP BP Pulse Ox 03/20/19 16:46 37.1 C 83 18 166/78 H 98 03/20/19 16:23 37 C 82 16 144/80 H 99 03/20/19 16:14 80 03/20/19 16:08 37.2 C 90 16 150/79 H 98 03/20/19 15:56 37.1 C 86 16 159/75 H 98 03/20/19 14:47 37.2 C 81 16 155/78 H 98 03/20/19 14:15 37.0 C 76 16 145/72 H 99 03/20/19 13:41 37.1 C 82 16 150/63 H 99 03/20/19 13:17 37.3 C 80 18 145/73 H 99 03/20/19 13:02 37.4 C 83 16 149/73 H 98 03/20/19 12:45 36.9 C 101 H 18 175/73 H 03/20/19 12:00 36.8 C 73 18 125/69 99 03/20/19 10:46 85 03/20/19 07:19 37.0 C 85 18 133/65 94 Laboratory Results 03/20/19 03/20/19 03/20/19 Range/Units 10:09 10:09 00:01 WBC 9.63 (4.8-10.8) K/uL RBC 2.42 L (4.2-5.4) M/uL Hgb 7.3 L 7.6 L (12.0-16.0) g/dL Hct 22.6 L 23.6 L (37-47) % MCV 93.4 (80-100) fL MCH 30.2 (25-34) pg MCHC 32.3 (32-36) g/dL RDW Std Deviation 48.3 H (36.4-46.3) fL RDW Coeff of Prince 14.0 (11.5-14.5) % Plt Count 285 (130-400) K/uL MPV 8.9 (7.4-10.4) fL Immature Gran % (Auto) 0.3 % Neut % (Auto) 74.0 % Lymph % (Auto) 18.1 % [place] % (Auto) 6.3 % Eos % (Auto) 0.9 % Baso % (Auto) 0.4 % Immature Gran # (Auto) 0.03 H (0.00-0.02) K/uL Neut # (Auto) 7.12 H (1.4-6.5) K/uL Lymph # (Auto) 1.74 (1.2-3.4) K/uL [place] # (Auto) 0.61 H (0.11-0.59) K/uL Eos # (Auto) 0.09 (0-0.5) K/uL Baso # (Auto) 0.04 (0-0.2) K/uL Hypersegmented Neuts 1+ Sodium 140 (136-145) mmol/L Potassium 3.5 D (3.5-5.1) mmol/L Chloride 108 H (98-107) mmol/L Carbon Dioxide 25 (21-32) mmol/L Anion Gap 7.0 (3-11) BUN 7 D (7-18) mg/dl Creatinine 0.67 (0.6-1.2) mg/dl Est Cr Clr Drug Dosing 71.9 ml/min Est GFR ( Amer) 103.2 Est GFR (Non-Af Amer) 89.1 BUN/Creatinine Ratio 11.0 (10-20) Glucose 100 H (70-99) mg/dl Calcium 8.0 L (8.5-10.1) mg/dl Blood Type Antibody Screen Crossmatch 03/19/19 03/19/19 Range/Units 17:48 00:46 WBC (4.8-10.8) K/uL RBC (4.2-5.4) M/uL Hgb 7.8 L (12.0-16.0) g/dL Hct 24.3 L (37-47) % MCV (80-100) fL MCH (25-34) pg MCHC (32-36) g/dL RDW Std Deviation (36.4-46.3) fL RDW Coeff of Prince (11.5-14.5) % Plt Count (130-400) K/uL MPV (7.4-10.4) fL Immature Gran % (Auto) % Neut % (Auto) % Lymph % (Auto) % [place] % (Auto) % Eos % (Auto) % Baso % (Auto) % Immature Gran # (Auto) (0.00-0.02) K/uL Neut # (Auto) (1.4-6.5) K/uL Lymph # (Auto) (1.2-3.4) K/uL [place] # (Auto) (0.11-0.59) K/uL Eos # (Auto) (0-0.5) K/uL Baso # (Auto) (0-0.2) K/uL Hypersegmented Neuts Sodium (136-145) mmol/L Potassium (3.5-5.1) mmol/L Chloride (98-107) mmol/L Carbon Dioxide (21-32) mmol/L Anion Gap (3-11) BUN (7-18) mg/dl Creatinine (0.6-1.2) mg/dl Est Cr Clr Drug Dosing ml/min Est GFR ( Amer) Est GFR (Non-Af Amer) BUN/Creatinine Ratio (10-20) Glucose (70-99) mg/dl Calcium (8.5-10.1) mg/dl Blood Type O Positive Antibody Screen NEGATIVE Crossmatch See Detail PG Care Time/CCT Total # of Minutes Spent Total Time Spent with Patient: Total time spent is greater than 50% in coordination of care (as documented) at patient's floor/unit and/or counseling patient: (1) Anemia Anemia type: unspecified type Qualified Code(s): D64.9 - Anemia, unspecified
[2019-03-20 20:49] LABS: Hematocrit (blood only) 31.6 % (37-47); Hemoglobin 10.4 g/dL (12.0-16.0); Mean Corpuscular Hgb Conc 32.9 g/dL (32-36); Mean Corpuscular Volume 89.3 fL (80-100); Mean Platelet Volume 9.3 fL (7.4-10.4); Platelet Count 291 K/uL (130-400); RDW Coefficient of Variation 14.7 % (11.5-14.5); RDW Standard Deviation 48.2 fL (36.4-46.3); Red Blood Count 3.54 M/uL (4.2-5.4); White Blood Count 9.79 K/uL (4.8-10.8)
[2019-03-20] MEDS: METOPROLOL SUCC 25MG EXT REL TAB PO SCH (21:11)
[2019-03-20] MEDS: ALPRAZolam 0.25 MG TABLET PO SCH (21:11)
[2019-03-21] MEDS: PANTOprazole 40 MG in DEXTROSE 5% 100 ML IV SCH ×5 (03:08→23:13)
[2019-03-21 06:17] LABS: Basophils # (auto) 0.03 K/uL (0-0.2); Basophils % (auto) 0.4 %; Eosinophils # (auto) 0.13 K/uL (0-0.5); Eosinophils % (auto) 1.8 %; Hematocrit (blood only) 31.3 % (37-47); Hemoglobin 10.5 g/dL (12.0-16.0); Immature Granulocytes # (auto) 0.02 K/uL (0.00-0.02); Immature Granulocytes % (auto) 0.3 %; Lymphocytes # (auto) 2.38 K/uL (1.2-3.4); Lymphocytes % (auto) 33.3 %; Mean Corpuscular Hgb Conc 33.5 g/dL (32-36); Mean Corpuscular Volume 87.9 fL (80-100); Mean Platelet Volume 9.8 fL (7.4-10.4); Monocytes % (auto) 5.6 %; Neutrophils # (auto) 4.18 K/uL (1.4-6.5); Neutrophils % (auto) 58.6 %; Platelet Count 307 K/uL (130-400); RDW Coefficient of Variation 14.9 % (11.5-14.5); RDW Standard Deviation 47.8 fL (36.4-46.3); Red Blood Count 3.56 M/uL (4.2-5.4); White Blood Count 7.14 K/uL (4.8-10.8)
[2019-03-21 06:53] LABS: BUN Creatinine Ratio 5.6 (10-20); Calcium 8.6 mg/dl (8.5-10.1); Creatinine Clr Calc Pharmacy 70.9 ml/min; Est GFR (African American) 102.7; Est GFR (Non-African American) 88.6; Potassium 3.3 mmol/L (3.5-5.1)
[2019-03-21] MEDS: SUCRALFATE 1 GM/10 ML UDC PO PRN ×2 (08:59→12:04)
[2019-03-21] MEDS: METOPROLOL SUCC 50MG EXT REL TAB PO SCH (09:00)
[2019-03-21] MEDS: ESCITALOPRAM OXALATE 10 MG TAB PO SCH (09:00)
[2019-03-21] MEDS ORDERED: POTASSIUM CHLORIDE 20 MEQ TABCR PO STA (09:18)
--- NOTE | 2019-03-21 09:53 | Gastroenterology Progress Note ---
Date of Service March 21, 2019 Assessment & Plan (1) Duodenal ulcer: With acute onset of anemia status post EGD 2 days ago, blood count dropped yesterday without signs of bleeding. Received blood transfusion with an appropriate response. Continue IV PPI for 72 hours and then will need twice daily PPI for at least a period of 2 months. Avoidance of NSAIDs Agree with advancing diet to full liquids Dr. Stevenson will return tomorrow to decide upon disposition and follow up. Call with questions. Subjective Patient without signs of bleeding, received 2 units of blood transfusion yesterday with a 3 g increase and hemoglobin today. Vital signs are all stable. Having loose soft yellow stool Review of Systems Review of Systems: All systems reviewed & are unremarkable except as noted in HPI & below Physical Exam Constitutional: WD/WN, vitals as above Cardiovascular: RRR, no murmur, no edema Gastrointestinal (Abdomen): normal bowel sounds, soft, nontender, no hepatosplenomegaly Results & Data Vital Signs (Past 12 Hours) Vital Signs Temp Pulse Pulse Resp BP BP Pulse Ox 03/21/19 08:00 75 03/21/19 07:00 37.0 C 81 18 133/71 95 03/21/19 03:36 36.6 C 71 18 124/69 95 03/21/19 00:12 88 03/20/19 23:02 37.4 C 86 18 131/72 96
[2019-03-21] MEDS: SUCRALFATE 1 GM/10 ML UDC PO SCH ×2 (17:07→21:01)
[2019-03-21] MEDS: METOPROLOL SUCC 25MG EXT REL TAB PO SCH (21:01)
[2019-03-21] MEDS: ALPRAZolam 0.25 MG TABLET PO SCH (22:13)
[2019-03-22] MEDS: PANTOprazole 40 MG in DEXTROSE 5% 100 ML IV SCH ×2 (04:01→09:16)
--- NOTE | 2019-03-22 07:28 | Hospitalist Progress Note ---
Date of Service DOS actually 03/21/19 March 22, 2019 Assessment & Plan (1) Upper GI bleed: This pt is a 68-year-old female with a h/o RA on NSAIDs, anxiety, PVCs who was admitted on 19 March 2019 for GI bleed. Question of syncopal vs presyncopal episode just prior to admission and she was on the bathroom floor for a brief time. No further presyncope symptoms since admission Had some prodromal epigastric discomfort for 24 hours. Has been on naproxen near daily since September 2018 with increased dosing related to some chest discomfort in the past few weeks. -found to have large duodenal ulcer seen on EGD-thermal fulgurated and injected with epi -stool remains clear now for over 24 hours after old blood past -continue Protonix gtt x 3 days as per GI recommendation-last day will be 03/22 -continue carafate q. before meals at bedtime for 10 days -Abd xray on 03/19 s/p EGD without evidence of perforation -Advance diet as tolerated-full liquids for dinner and low fiber tomorrow -dcd all NSAIDs permanently -Appreciate GI consultation (2) Duodenal ulcer: found on EGD actively bleeding and treated with epi injection and fulguration -tx as above -will end up sending home with PPI bid -will need to check with GI to see if needs repeat EGD in 6-8 weeks (3) Anemia: Acute blood loss anemia sloan to UGI Bleed from duodenal ulcer Continues to be Hemodynamically stable at this time Hb 13.3 back in December. Admit Hb 9.1. INR 1.1. Had oozing blood actively on EGD with epi injected and fulguration of ulcer--> hgb went down to 7.3 -transfused 2 units PRBC on 03/20 Hemoglobin now up to 10.5 and stable from previous (4) PVCs (premature ventricular contractions): Previously symptomatic, now minimal since starting on Toprol in 12/2018 by PCP Tele continues with a few short bursts of PAT, not overly concerning -continue Toprol and increase dose to 50 mg p.o. twice daily (5) Rheumatoid arthritis: Stable, follows with Rheum Dr. Es Barreto - On Orencia -was taking frequent NSAIDs as above -dc all NSAIDs permanently -continue tylenol prn pain -will need Rheum f/u as outpt to come up with alternative treatment if RA symptoms are worsening after being off NSAID (6) Anxiety: continue prn xanax qhs (7) Depression: -continue on Lexapro (8) DVT prophylaxis: SCDs, no chemoprophylaxis due to GI bleeding Dispo- remain on med-tele, possible discharge home tomorrow if tolerating diet and hemoglobin remained stable with no further bleeding Subjective No further rectal bleeding, having yellow watery stools. Diet is not yet been advanced to full liquids. Denies abdominal pain, chest pain, shortness of breath. Review of Systems Review of Systems: All systems reviewed & are unremarkable except as noted in HPI & below Physical Exam Constitutional: WD/WN, vitals as above Eyes: PERRL, conjunctivae normal, anicteric sclerae ENMT: external ear and nose normal, oropharynx normal Neck: trachea midline, no thyromegaly Respiratory: normal respiratory effort, lungs clear to auscultation Cardiovascular: RRR, no murmur, no edema Gastrointestinal (Abdomen): normal bowel sounds, soft, nontender, no hepatosplenomegaly Musculoskeletal: Extremities: extremities normal to inspection; no cyanosis and no clubbing Skin: no rashes, warm and dry Neurologic: moves all extremities and awake; no focal motor deficits Psychiatric: A+Ox3, euthymic affect Results & Data Vital Signs (Past 12 Hours) Vital Signs Temp Pulse Pulse Resp BP Pulse Ox 03/22/19 07:06 37 C 77 18 144/79 H 97 03/22/19 03:18 36.6 C 78 18 147/78 H 95 03/21/19 23:52 74 03/21/19 23:22 36.8 C 75 18 132/80 94 03/21/19 19:42 36.7 C 89 16 157/83 H 98 PG Care Time/CCT Total # of Minutes Spent Total Time Spent with Patient: Total time spent is greater than 50% in coordination of care (as documented) at patient's floor/unit and/or counseling patient: (1) Anemia Anemia type: unspecified type Qualified Code(s): D64.9 - Anemia, unspecified
[2019-03-22] MEDS: SUCRALFATE 1 GM/10 ML UDC PO SCH ×2 (07:31→11:27)
[2019-03-22] MEDS: ESCITALOPRAM OXALATE 10 MG TAB PO SCH (07:31)
[2019-03-22] MEDS: METOPROLOL SUCC 50MG EXT REL TAB PO SCH (07:31)
[2019-03-22 07:42] LABS: Basophils # (auto) 0.02 K/uL (0-0.2); Basophils % (auto) 0.3 %; Eosinophils # (auto) 0.13 K/uL (0-0.5); Hematocrit (blood only) 32.5 % (37-47); Hemoglobin 10.8 g/dL (12.0-16.0); Immature Granulocytes # (auto) 0.02 K/uL (0.00-0.02); Immature Granulocytes % (auto) 0.3 %; Lymphocytes # (auto) 2.11 K/uL (1.2-3.4); Lymphocytes % (auto) 31.8 %; Mean Corpuscular Hgb Conc 33.2 g/dL (32-36); Mean Corpuscular Volume 88.8 fL (80-100); Mean Platelet Volume 9.4 fL (7.4-10.4); Monocytes # (auto) 0.48 K/uL (0.11-0.59); Monocytes % (auto) 7.2 %; Neutrophils # (auto) 3.87 K/uL (1.4-6.5); Neutrophils % (auto) 58.4 %; Platelet Count 333 K/uL (130-400); RDW Coefficient of Variation 14.4 % (11.5-14.5); RDW Standard Deviation 46.9 fL (36.4-46.3); Red Blood Count 3.66 M/uL (4.2-5.4); White Blood Count 6.63 K/uL (4.8-10.8)
[2019-03-22 08:38] LABS: BUN Creatinine Ratio 5.9 (10-20); Calcium 8.7 mg/dl (8.5-10.1); Creatinine Clr Calc Pharmacy 65.1 ml/min; Est GFR (African American) 95.1; Est GFR (Non-African American) 82.1; Potassium 3.2 mmol/L (3.5-5.1)
[2019-03-22] MEDS ORDERED: POTASSIUM CHLORIDE 20 MEQ TABCR PO STA (09:34)
--- NOTE | 2019-03-22 09:48 | Gastroenterology Progress Note ---
Date of Service March 22, 2019 Assessment & Plan (1) Anemia: H/H 10.8/32.5. Improving. See plan for duodenal ulcer. Present on Admission?: Yes (2) Duodenal ulcer: 1. Continue diet as tolerated 2. Continue Protonix ggt at 8 mg/hr for a total of 72 hours at which time patient may be discharged on Protonix 40 mg BID. 3. Avoid NSAIDs. 4. Our office will be reaching out to schedule outpatient follow-up for her EGD in 8 weeks. The patient has been provided with our phone number for any needs she may have in the interim. 5. Supportive care per primary team. Present on Admission?: Yes Supervising Physician Co-Signing Physician Notes Agree with LUISA Rosen as above Patient was discharged prior to my evaluation. Subjective Patient is a 68 yo female with an extensive duodenal ulcer. She reports she is feeling well today. She denies melena or abdominal pain. She is eating a solid diet. Her H/H is stable at 10.8/32.5. She offers no further complaints today. She has continued on an IV PPI drip throughout her admission. Review of Systems Constitutional: no fever and no chills Respiratory: no cough and no dyspnea Cardiovascular: no chest pain Gastrointestinal: no abdominal pain, no nausea, no vomiting, no coffee ground emesis and no melena Musculoskeletal: + back pain Physical Exam Constitutional: WD/WN, vitals as above Eyes: PERRL, conjunctivae normal, anicteric sclerae Respiratory: normal respiratory effort, lungs clear to auscultation Cardiovascular: RRR, no murmur, no edema Rate/Rhythm: regular rate Gastrointestinal (Abdomen): normal bowel sounds, soft, nontender, no hepatosplenomegaly Musculoskeletal: no cyanosis or clubbing, extremities motor strength 5/5 Skin: no rashes, warm and dry Psychiatric: A+Ox3, euthymic affect Results & Data Vital Signs (Past 12 Hours) Vital Signs Temp Pulse Pulse Resp BP Pulse Ox 03/22/19 07:06 37 C 77 18 144/79 H 97 03/22/19 03:18 36.6 C 78 18 147/78 H 95 03/21/19 23:52 74 03/21/19 23:22 36.8 C 75 18 132/80 94 (1) Anemia Anemia type: unspecified type Qualified Code(s): D64.9 - Anemia, unspecified
--- NOTE | 2019-03-22 11:31 | Discharge Summary ---
Date of Service March 22, 2019 Admission HPI Per Admitting Provider 68-year-old female states that just prior to ED arrival she had an episode of bright red blood per rectum. She says over the past 24 hours or so she has had some epigastric discomfort. She does recall finding herself on the floor of her bathroom this afternoon but does not think she necessarily passed out, but rather thinks she may have lowered herself to the ground. She denies any headache or body/extremity acute pains. No known history of BRBPR. Says last colonoscopy about 12 years ago was normal and stool colorectal cancer screening subsequently has been negative. She does relate that she has been on Naprosyn for rheumatoid arthritis near daily since September 2018. She has been on the higher doses of this over the past couple months due to knee pain (and is now s/p left knee replacement in January 2019). She denies any concurrent vomiting. Has had a decreased appetite over the past month with some mild associated nausea. At present during this H&P she denies any abdominal discomfort, nausea, focal pains, or other acute concerns. - Past medical history includes rheumatoid arthritis, PVCs, anxiety, depression. - Past surgical history includes left knee replacement in January 2019, hysterectomy, laparotomy, foot surgery, ovarian cystectomy. - Social history includes quitting smoking about 3 years ago. Prior 40-year smoking history. Denies alcohol use. Lives at home with spouse. Principal Diagnosis Upper GI bleed, duodenal ulcer Discharge Exam Constitutional WD/WN, vitals as above Eyes PERRL, conjunctivae normal, anicteric sclerae ENMT external ear and nose normal, oropharynx normal Neck trachea midline, no thyromegaly Respiratory normal respiratory effort, lungs clear to auscultation Cardiovascular RRR, no murmur, no edema Gastrointestinal (Abdomen) normal bowel sounds, soft, nontender, no hepatosplenomegaly Musculoskeletal Extremities: extremities normal to inspection; no cyanosis and no clubbing Skin no rashes, warm and dry Neurologic moves all extremities and awake; no focal motor deficits Psychiatric A+Ox3, euthymic affect Discharge Data Allergies Allergy/AdvReac Type Severity Reaction Status Date / Time No Known Allergies Allergy Verified 03/19/19 00:56 Consultations Gastroenterology Procedures Performed Operation Date: 03/19/19 10:00 Actual Procedures p EGD Hemostasis - Seven G. Case, DO s Injection Therapy / Sclerotherapy - Seven Sanches Case, DO Ordered Studies Chest/abdomen x-ray Hospital Course (1) Upper GI bleed: This pt is a 68-year-old female with a h/o RA on NSAIDs, anxiety, PVCs who was admitted on 19 March 2019 for GI bleed. Question of syncopal vs presyncopal episode just prior to admission and she was on the bathroom floor for a brief time. No further presyncope symptoms since admission and is hemodynamically stable. Had some prodromal epigastric discomfort for 24 hours. Has been on naproxen near daily since September 2018 with increased dosing related to some chest discomfort in the past few weeks. Also had been on aspirin 81 mg twice a day for 4 weeks after knee replacement in January. There is also note of meloxicam on her admission medication list. -found to have large duodenal ulcer seen on EGD-thermal fulgurated and injected with epi -has had no further GI bleeding in several days -She was treated with a Protonix gtt x 3 days as per GI recommendation -continue carafate q. before meals at bedtime for 7 more days after discharge -Abd xray on 03/19 s/p EGD without evidence of perforation when she had some ab dominal pain immediately after her EGD-no further abdominal pain since that time -She was tolerating a low fiber diet at the time of discharge and should remain on this for 2 weeks and then gradually increase to regular diet -dcd all NSAIDs permanently -Appreciate GI consultation -Needs repeat EGD in 8 weeks as below (2) Duodenal ulcer: found on EGD actively bleeding and treated with epi injection and fulguration -tx as above -will end up sending home with PPI bid x8 weeks -will need repeat EGD in 6-8 weeks (3) Anemia: Acute blood loss anemia sloan to UGI Bleed from duodenal ulcer Continues to be Hemodynamically stable at this time, in fact blood pressures have been elevated Hb 13.3 back in December. Admit Hb 9.1. INR 1.1. Had oozing blood actively on EGD with epi injected and fulguration of ulcer--> hgb went down to 7.3 -transfused 2 units PRBC on 03/20 Hemoglobin now up to 10.8 and continues to increase on a daily basis -She should not take iron after discharge as she received red blood cell transfusion and do not want to confuse the picture of her stools turned black -She should have a repeat CBC in the next 1 to 2 weeks to ensure that her hemoglobin is returning to normal. (4) PVCs (premature ventricular contractions): Previously symptomatic, now minimal since starting on Toprol in 12/2018 by PCP Her telemetry monitoring was with a few short bursts of PAT on several occasions, not overly concerning -continue Toprol and increase dose to 50 mg p.o. twice daily upon discharge (5) Rheumatoid arthritis: Stable, follows with Rheum Dr. Es Barreto - On Orencia -was taking frequent NSAIDs as above -dc all NSAIDs permanently -continue tylenol prn pain -will need Rheum f/u as outpt to come up with alternative treatment if RA symptoms are worsening after being off NSAID (6) Anxiety: continue prn xanax qhs (7) Depression: -continue on Lexapro (8) DVT prophylaxis: SCDs, no chemoprophylaxis due to GI bleeding Dispo-stable for discharge to home Total Time Total Time Spent Total Time Spent (In Minutes): Greater than 30 minutes Total Time Includes: Examination of the Patient, Discharge Planning and Medication Reconciliation Discharge Plan Discharge Items Patient Disposition: Home - Self-Care Reason For Visit: GI BLEED Discharge Diagnosis: GI bleed, duodenal ulcer Condition: Good Discharge Goals: Decrease discomfort, Diagnostic testing, Improve disease control, Learn about illness, Prevent disease and Therapeutic intervention Activity: As commented below Lifting: Gradually increase as tolerated Bathing: No limitations Exercise/Sports: Gradually increase as tolerated Driving/Machine Use: No limitations Non-emergency contact: Primary Care Provider and Egg Buyer Call non-emergency contact if: you have any medication questions, your symptoms worsen, your pain is not controlled, your pain is worsening, your pain is unusu al for you and your pain is concerning for you Follow-up/Referrals: Seven Stevenson DO [Physician] - (Dr. Stevenson's office will be contacting you about setting up a repeat EGD in 8 weeks.) Napoleon Douglass [Primary Care Provider] - Diet: Low Fiber Diet Comment: Low fiber x2 weeks and then gradually advance to regular food as tolerated Addtl Provider Instructions: You were admitted with rectal bleeding and abdominal pain and found to have a large duodenal ulcer in the small intestine. This was treated with antacids through the IV for 3 days. This was likely related to NSAID and aspirin use. Please do not take anymore NSAIDs or aspirin containing products of any kind. You were transfused blood while you are here and your blood count remained stable for several days. Your bleeding resolved. You will need a repeat EGD in 8 weeks with the hydroelectric mechanic. Please continue on Protonix 40 mg twice daily for 8 weeks until your repeat endoscopy. You will also be given a prescription for sucralfate 1 g by mouth with each meal and at bedtime for 7 more days-this helps to coat the ulcer in your stomach and help it heal. You do not need to take iron pills as you received blood transfusions while here. Your metoprolol dose was increased to 50 mg twice daily due to excessive extra beats at times called paroxysmal atrial tachycardia (PAD). Please discuss this with your primary care physician after discharge Please follow-up with your primary care physician within 1 week after discharge. Your PCP can follow your blood count and let you know when it has returned to normal. Prescriptions: New sucralfate 100 mg/mL Suspension 1 gm PO ACHS 7 Days Qty: 420 RF: 0 pantoprazole [Protonix] 40 mg tablet,delayed release (DR/EC) 40 mg PO BID Qty: 60 RF: 1 Continued escitalopram oxalate 10 mg tablet 10 mg PO DAILY RF: 0 Changed metoprolol succinate 50 mg Tablet Extended Release 24 Hr 50 mg PO BID Qty: 0 RF: 0 alprazolam 0.5 mg tablet 0.5 mg PO BID PRN (Reason: Anxiety) Qty: 0 RF: 0 Discontinued metoprolol succinate 25 mg Tablet Extended Release 24 Hr 25 mg PO QPM RF: 0 meloxicam 15 mg tablet 15 mg PO DAILY RF: 0 aspirin 81 mg Tablet,Delayed Release (Dr/Ec) 81 mg PO BID RF: 0 omeprazole 40 mg capsule,delayed release(DR/EC) 40 mg PO DAILY Qty: 30 RF: 0 celecoxib [Celebrex] 200 mg capsule 200 mg PO BID RF: 0 Stand-Alone Forms: [facility] Discharge Orders: Discharge Order (Routine); Ordered 03/22/19 Ordered By: Yue Chan Admission Data Admit Date/Time: 03/19/19 02:55 Attending Provider: Yue Chan Admit Provider: Steve Valadez Primary Care Provider: Napoleon Douglass Other Providers: Jenae Villegas ; Seven Stevenson Service: Telemetry Medical Other Pending Studies at Discharge: No
[2019-03-22] MEDS ORDERED: METOPROLOL SUCC 50MG EXT REL TAB PO SCH (21:00)
--- NOTE | 2019-03-26 10:10 | Coding Query ---
CODING QUERY To promote full compliance with coding requirements relating to patient care, provider participation is requested in all cases of compliance spec uncertainty. Please assist us with the question(s) below: Coding Question(s): It was documented that the GI bleed occurred in the setting of aspirin and NSAID use. In your clinical opinion was the bleed caused by the use of NSAID and ASA? Physician's Response(s): ( x ) GI Bleed due to both aspirin and NSAID usage ( ) GI Bleed due to aspirin usage only ( ) GI Bleed due to NSAID usage only ( ) GI Bleed due to other cause (please specify) ( ) GI Bleed due to unknown cause Thank you Bernice Cash Principal Diagnosis: "that condition established after study, to be chiefly responsible for occasioning the admission of the patient to the hospital for care." Co-Existing Principal Diagnosis: "when two or more diagnoses equally meet the criteria for principal diagnosis as determined by the circumstances of admission, diagnostic work up, and/or therapy provided, and the Alphabetic Index, Tabular List, or another coding guideline does not provide sequencing direction, any one of the diagnoses may be sequenced first." "When the physician has documented what appears to be a current diagnosis in the body of the record, but has not included the diagnosis in the final diagnostic statement, the physician should be asked whether the diagnosis should be added." (Source Coding [facility] 2 QTR90. p3-4) MENDEZ
== END 2019-03-22 12:34 | disposition home or self-care (01) | DRG 813 ==
LOC: ED 00:14 → SUATTDRO 02:55 → 2W 02:55

== ENCOUNTER 2019-06-26 08:50 | Inpatient (IN) ==
--- NOTE | 2019-06-22 18:39 | History and Physical Report ---
DATE OF ADMISSION: 06/28/2019 CHIEF COMPLAINT: Persistent right knee pain and discomfort. HISTORY OF PRESENT ILLNESS: The patient is a 68-year-old female who is now about 5 months out from a left knee replacement, which was complicated by postoperative GI ulcer followed by Dr. Stevenson. Her left knee has done well from a clinical standpoint. Her right knee continues to bother her. She has got global pain in her right knee, a little bit more medial than lateral. The more she walks, the more it hurts. It is limiting her activities. Left knee has recovered nicely and essentially pain free. She would like to have her right knee replaced. She has been through extensive conservative treatment and cannot take anti-inflammatories due to this GI issue. PAST MEDICAL HISTORY: Includes: 1. Rheumatoid arthritis since 1994. 2. Peptic ulcer disease diagnosed in 03/2019. 3. Hiatal hernia. 4. Basal cell skin cancer. PAST SURGICAL HISTORY: Includes: 1. Left total knee replacement done on 01/18/2019. 2. OLIVE BRINE TESTER surgery x4. 3. Bunion surgery in 1994. ALLERGIES: None. CURRENT MEDICINES: 1. Protonix 40 mg. 2. Lexapro 10 mg. 3. Alprazolam 5 mg a day. 4. Tylenol 3 times a day. 5. Multivitamin. 6. Metoprolol once a day. SOCIAL HISTORY: A 68-year-old female. She is . She does not smoke. No significant alcohol intake. FAMILY HISTORY: Noncontributory. REVIEW OF SYSTEMS: Significant for this recent GI ulcer, which has been followed by Dr. Stevenson and she has been cleared for further surgery. Denies any current chest pain or shortness of breath. She does have underlying rheumatoid disease. No history of DVT or PE. No known bleeding problems other than with a GI ulcer. PHYSICAL EXAMINATION: GENERAL: Shows a pleasant, middle-aged female. Looks to be in good health. HEENT: Benign. NECK: Supple, no lymphadenopathy. LUNGS: Clear to auscultation. HEART: Regular rate and rhythm. ABDOMEN: Soft, nontender, nondistended. EXTREMITIES: Grossly neurovascularly intact except as follows: Examination of the right knee reveals the patient walks with slight bit of a limp. She has got varus alignment to her knee. She is tender over the medial joint line. Range of motion is 5-120. No instability. No pain with hip motion. Examination of left knee reveals well-healed incision. Fairly minimal swelling. Range of motion 0-120. Good straight leg raise. X-RAYS: X-ray of the right knee is reviewed. It shows advanced right knee DJD. She has got complete loss of her medial joint space. She has subchondral sclerosis. She has got cystic changes of the distal femur and osteophytes of the medial femoral condyle and medial tibial plateau. ASSESSMENT: A 68-year-old female, 5 months out from left knee replacement complicated by gastrointestinal bleed, which seems to be stable. She is on Protonix. She has seen Dr. Titus and Dr. Stevenson and they have okayed her to proceed with the knee surgery on the other side. We are going to avoid aspirin due to this gastrointestinal issue. PLAN: We are going to take her to the operating room and do a right total knee replacement. The risks and benefits of this procedure were explained to the patient including but not limited to DVT, PE, , infection, neurological injury, vascular injury, bleeding problem, pain, limited range of motion, stiffness, failure to relieve her symptoms, incomplete relief of symptoms, need for further surgery in the future, fracture, leg length inequality, nerve palsy, need for blood transfusion and further ulcer issues. The patient understands and desires to proceed. I did explain to her in depth that I think she is at increased risk of an ulcer and she is aware of this. We will keep her on the Protonix. We will avoid the aspirin and use Xarelto for DVT prophylaxis. She knows to take the metoprolol the morning of surgery. She is planning to be discharged to home using [facility] home health program. [facility]
--- NOTE | 2019-06-25 09:50 | Anesthesiology Consultation ---
Date of Service June 25, 2019 Assessment & Plan (1) Encounter for pre-operative examination: Chart Review Chart Review: Acceptable Risk for Surgery and Patient NOT seen in Pre Admission Testing Consults Requested none History Surgery Operation Date: 06/26/19 13:00 Proposed Procedures p Right Total Knee Arthroplasty - Dangelo Villegas MD Allergies Allergy/AdvReac Type Severity Reaction Status Date / Time No Known Allergies Allergy Verified 05/28/19 13:20 Medications Home Medications Medication Instructions Recorded Confirmed Last Taken escitalopram oxalate 10 mg PO QAM 03/05/19 05/28/19 05/14/19 08:00 alprazolam 0.5 mg PO DAILY PRN 04/30/19 05/28/19 05/13/19 22:00 metoprolol succinate 25 mg PO BID 04/30/19 05/28/19 05/14/19 08:00 multivitamin 1 tab PO QAM 04/30/19 05/28/19 05/13/19 08:00 tretinoin 1 applic TOPICAL QPM 04/30/19 05/28/19 05/13/19 21:00 pantoprazole 40 mg tablet,delayed 40 mg PO BID #60 tab 05/23/19 05/28/19 Unknown release abatacept (with maltose) 250 mg 750 mg IV Q4WK ea 05/28/19 05/28/19 Unknown intravenous solution Past Medical History Medical History Paroxysmal SVT (supraventricular tachycardia) Coronary artery calcification PVCs (premature ventricular contractions) Anemia Anxiety Basal cell carcinoma of left upper arm Basal cell carcinoma of right upper arm Basal cell carcinoma of upper lip History of duodenal ulcer Leaky heart valve HX-20 YRS AGO-ECHO DONE-NO F/U WITH PLASTIC DOLLS MOLD FILLER REQUIRED. NO MURMUR APPRECIATED ON EXAM AT PAT 12/25 PVC's (premature ventricular contractions) follows with Dr. 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/INFECTION OVARY-TREATED WITH WARFARIN X 3 M ONT-NO ISSUES SINCE Past Family History Family History Father Cardiac disorder Hypertension Family history of diabetes mellitus Grandfather Hypertension Grandmother Recurrent kidney stones Grandfather (Paternal) Family history of diabetes mellitus Other No family history of adverse response to anesthesia Past Surgical History Surgical History H/O ovarian cystectomy History of appendectomy History of bunionectomy of right great toe History of section History of colonoscopy History of esophagogastroduodenoscopy (EGD) History of hysterectomy TOTAL History of laparotomy ECTOPIC History of left knee replacement History of oophorectomy "History of Oophorectomy for Ectopic " History of tooth extraction Hx of right breast biopsy benign Status post Mohs surgery for basal cell carcinoma Social History Smoking Status: Former smoker Hx Alcohol Use: Yes Alcohol type: wine alcohol intake frequency: holidays/special occasions only Hx Substance Use: Yes (had medical marijuana--no longer uses) substance use type: marijuana Testing Laboratory Results Laboratory Tests 06/10/19 06/10/19 06/10/19 14:26 14:26 14:26 WBC 6.76 Hgb 11.9 L Plt Count 366 PT 10.1 INR 1.0 APTT 27.6 Sodium 140 Potassium 3.7 Chloride 105 Carbon Dioxide 29 BUN 16 Creatinine 0.78 Glucose 86 Electrocardiogram Date: 03/21/19 Findings: + NSR @ (85) Chest X-Ray Date: 03/19/19 XR abdomen 2V w PA chest CLINICAL HISTORY: abdominal pain, r/o perforation,has duodenal ulcer COMPARISON STUDY: No previous studies for comparison. FINDINGS: The soft tissues, psoas shadows, renal outlines and intestinal gas pattern appear normal. There is no evidence for bowel obstruction. There is no evidence for free intraperitoneal air. No abnormal abdominal calcifications are seen. A frontal view of the chest was performed and is unremarkable. IMPRESSION: Normal study. The above report was generated using voice recognition software. It may contain grammatical, syntax or spelling errors. Electronically signed by: Nj Snider M.D. 03/19/2019 6:34 PM Dictated: 03/19/19 1834 Echocardiogram Date: 03/28/19 EF: 60-65 Other Findings: + diastolic dysfunction (grade 1) Valvular Disease: + no significant valvular disease
[~2019-06-26 08:50] MED LIST changes: -ATROPINE SULFATE 0.1 MG/ML 10ML SYR IV PRN; +BUPIVACAINE 0.25% 30 ML VIAL ONE; +EPINEPHrine INJ 1 MG/ML AMP ONE; +GABAPENTIN 300 MG CAP PO SCH; -GABAPENTIN 300 MG PO SCH; -LR 500ML BOLUS, THEN 15ML/HR IV SCH; -LR 60ML/HR IV SCH; -ONDANSETRON INJ 2 MG/ML 2 ML VIAL IV PRN; -ROPIVACAINE 0.5% 5 MG/ML 30 ML VIAL ONE; -ePHEDrine sulfate 50 MG/ML AMP IV PRN
--- NOTE | 2019-06-26 09:01 | History & Physical Bridge Note ---
Date of Service June 26, 2019 History & Physical Bridge Note I have examined the patient, reviewed the History & Physical and in the interval since the performance of the History & Physical I have noted the following changes of clinical significance: no changes noted
[2019-06-26] MEDS ORDERED: fentaNYL citrate 100 MCG/2 ML VIAL ONE ×2 (09:56→11:47)
[2019-06-26] MEDS ORDERED: LIDOCAINE HCL 2% 2 ML VIAL/AMP(20MG/ML) INFIL ONE (09:56)
[2019-06-26] MEDS ORDERED: PROPOFOL IV EMULSION 10 MG/ML 20 ML VIAL IV ONE (09:56)
[2019-06-26] MEDS ORDERED: ONDANSETRON INJ 2 MG/ML 2 ML VIAL ONE (09:56)
[2019-06-26] MEDS ORDERED: MIDAZOLAM HCL 1 MG/ML 2ML VIAL ONE (09:56)
[2019-06-26] MEDS ORDERED: LR 500ML BOLUS, THEN 15ML/HR IV SCH (10:00)
[2019-06-26] MEDS ORDERED: LR 60ML/HR IV SCH (10:00)
[2019-06-26] MEDS ORDERED: BUPIVACAINE/EPINEPHRINE 0.25% 1:200,000 30 ML VIAL ONE (11:10)
[2019-06-26] MEDS ORDERED: SODIUM CHLORIDE 0.9% PF 50 ML VIAL ONE (11:10)
[2019-06-26] MEDS ORDERED: BACITRACIN INJ 50,000 UNIT VIAL ONE (11:11)
[2019-06-26] MEDS ORDERED: BUPIVACAINE LIPOSOME 1.3% 266 MG/20 ML VIAL ONE (11:11)
[2019-06-26] MEDS ORDERED: ePHEDrine sulfate 50 MG/ML AMP ONE (11:58)
--- NOTE | 2019-06-26 12:54 | Post Operative Brief Note ---
PG Immediate Post Op with CF Date of Surgery June 26, 2019 Pre & Post Diagnosis Operation Date: 06/26/19 10:55 Pre-Op Diagnosis: Right Knee Advanced Degenerative Joint Disease Post-Op Diagnosis: Right Knee Advanced Degenerative Joint Disease I personally identified the patient: Yes Procedure Operation Date: 06/26/19 10:55 Actual Procedures p Right Total Knee Arthroplasty(Right) - Dangelo Villegas MD Surgeon Dangelo Villegas MD Extrusion Press Adjuster Za, PAC Estimated Blood Loss 50 Findings Consistent with Post-Op Diagnosis Fluids 1200 cc Specimens Specimen Description: A. Right Knee Bone and Tissue Drains Beckham Catheter (A 16 Iraqi beckham catheter was inserted by ST [facility], without difficulty, clear yellow urine obtained, output to be monitored by Anesthesia.) Anesthesia Type Spinal MAC Complications none Disposition Accompanied Patient To Recovery: No Disposition: Recovery Room
--- NOTE | 2019-06-26 13:35 | Anesthesiology Progress Note ---
Date of Service June 26, 2019 Anesthesia Post Procedure Vital Signs Vital Signs: Temp Pulse Pulse Resp BP Pulse Ox 06/26/19 13:30 37.3 C 82 20 133/63 93 06/26/19 13:20 36.0 C L 78 18 137/66 96 06/26/19 13:10 36.0 C L 82 17 136/74 94 06/26/19 13:01 36.0 C L 84 12 145/67 H 97 06/26/19 09:31 36.6 C 65 18 154/71 H 98 Transfer of Care Handoff Completed per policy Notes Mental Status: alert / awake / arousable and participated in evaluation Patient Amnestic to Procedure: Yes Nausea / Vomiting: adequately controlled Pain: adequately controlled Airway Patency, RR, SpO2: stable & adequate BP & HR: stable & adequate Hydration State: stable & adequate Anesthetic Complications: no major complications apparent and Pt Satisfied with anesthetic care
--- NOTE | 2019-06-26 13:36 | XRay Report ---
XR knee RT 2V routine CLINICAL HISTORY: 68 years-old Female presenting with Surgical Post Op. TECHNIQUE: Frontal and lateral views of the right knee were obtained. COMPARISON: 03/16/2016. FINDINGS: Expected postsurgical changes of total right knee arthroplasty with patellar resurfacing. No malalign ment. No periprosthetic fracture or lucency. Expected soft tissue and intra-articular emphysema. Over lying skin nieves. Atherosclerotic calcifications noted. IMPRESSION: Expected postoperative appearance status post total right knee arthroplasty with patellar resurfacing . Electronically signed by: Zeyad Carrasco M.D. 06/26/2019 1:34 PM
[2019-06-26] MEDS ORDERED: ALUMINUM/MAGNESIUM SUSP 30 ML UDC PO PRN (14:15)
[2019-06-26] MEDS ORDERED: ABATACEPT IV SCH (14:15)
[2019-06-26] MEDS ORDERED: bisacodyL 10 MG SUPP PR PRN (14:15)
[2019-06-26] MEDS ORDERED: HYDROmorphone INJ 0.5 MG/0.5 ML SYR IV PRN (14:15)
[2019-06-26] MEDS ORDERED: [UNRECOGNIZED DRUG - OTHER] IV SCH (14:15)
[2019-06-26] MEDS ORDERED: METOCLOPRAMIDE HCL INJ 5 MG/ML 2 ML VIAL IV PRN (14:15)
[2019-06-26] MEDS ORDERED: ALPRAZolam 0.5 MG TABLET PO PRN (14:15)
[2019-06-26] MEDS ORDERED: ONDANSETRON INJ 2 MG/ML 2 ML VIAL IV PRN (14:15)
[2019-06-26] MEDS ORDERED: MAGNESIUM HYDROXIDE SUSP 30 ML UDC PO PRN (14:15)
[2019-06-26] MEDS ORDERED: NO NSAIDS PRN (14:15)
[2019-06-26] MEDS ORDERED: NALOXONE HCL 0.4 MG/1 ML VIAL/CARP IV PRN (14:15)
[2019-06-26] MEDS: ACETAMINOPHEN 500 MG TAB PO SCH ×2 (14:57→20:22)
[2019-06-26] MEDS: ASCORBIC ACID 500 MG TAB PO SCH (17:35)
[2019-06-26] MEDS: FERROUS GLUCONATE 324 MG TAB PO SCH (17:35)
--- NOTE | 2019-06-26 17:49 | Progress Note ---
DATE: 06/26/2019 SUBJECTIVE: A 68-year-old female postop from a right knee replacement. She is doing pretty well. Just starting to get some of the feeling and function back in her leg. No particular pain yet. No chest pain or shortness of breath. Not feeling dizzy or lightheaded. OBJECTIVE: VITAL SIGNS: Temperature 36.4. Vital signs stable. GENERAL: Shows a pleasant, middle-aged female. She is sitting up in bed, looks comfortable. She is talking to her . LUNGS: Clear to auscultation. HEART: Regular rate and rhythm. ABDOMEN: Soft, nontender, nondistended. EXTREMITIES: Grossly neurovascularly intact except as follows: Examination of the right leg reveals the leg to be well aligned. Dressing is clean, dry and intact. She has no significant sensory or motor function yet in her leg. She has got brisk refill with good distal pulse. X-RAYS: X-rays of the right knee from recovery room reviewed. It shows right cemented posterior stabilized total knee arthroplasty. Components looked to be in good position. No signs of problems. ASSESSMENT: 68-year-old female postop from a right knee replacement. She had her left knee replaced several months ago and did have a GI bleed. We are going to keep her off the aspirin, use Xarelto for DVT prophylaxis. We will continue on the Protonix. PLAN: 1. DVT prophylaxis including thigh-high TEDs, SCDs, and start Xarelto 24 hours postop. 2. PT/OT. Weight bear as tolerated. Right total knee protocol. 3. Pain control, doing pretty well with current pain regimen. We will obviously have to adjust her meds as the spinal wears off. 4. IV antibiotics x24 hours. 5. History of gastrointestinal bleed in the past. We will hold any NSAIDs and will use Protonix. We will use Xarelto for DVT prophylaxis. 6. Disposition: Plan to discharge to home with some home health once adequately recovered.
[2019-06-26] MEDS ORDERED: RIVAROXABAN 10 MG TABLET PO SCH (18:00)
[2019-06-26] MEDS ORDERED: TRANEXAMIC ACID 1,000 MG in 0.9 % SODIUM CHLORIDE 100 ML IV SCH (19:00)
[2019-06-26] MEDS: TRAMADOL HCL 50 MG TABLET PO PRN ×2 (19:04→19:38)
[2019-06-26] MEDS: PANTOprazole 40 MG TAB PO SCH (20:19)
[2019-06-26] MEDS: CEFAZOLIN 1000MG 1,000 MG/7.5 ML SYR IV SCH (20:19)
[2019-06-26] MEDS: METOPROLOL SUCC 25MG EXT REL TAB PO SCH (20:20)
[2019-06-26] MEDS: SENNA 8.6 MG TAB PO SCH ×2 (20:20→20:23)
[2019-06-26] MEDS: DOCUSATE SODIUM 100 MG CAP PO SCH ×2 (20:20→20:23)
[2019-06-26] MEDS: SODIUM CHLORIDE 0.9% 1000ML 1,000 ML IV SCH ×2 (20:22→23:51)
[2019-06-26] MEDS ORDERED: NON-FORMULARY MEDICATION (Tretinoin 1 APPLN) TOP SCH (21:00)
--- NOTE | 2019-06-26 22:39 | Operative Report ---
DATE OF OPERATION: 06/26/2019 SURGEON: Dangelo Villegas M.D. POWER [employer]ARKER OPERATOR: CONOR Younger PREOPERATIVE DIAGNOSIS: Right knee degenerative joint disease. POSTOPERATIVE DIAGNOSIS: Right knee degenerative joint disease. PROCEDURE PERFORMED: Right cemented posterior stabilized total knee arthroplasty. COMPLICATIONS: None. ESTIMATED BLOOD LOSS: 50 mL. FLUID REPLACEMENT: 1200 mL crystalloid fluid replacement. ANESTHESIA: Spinal with adductor canal block. DRAINS: None. SPECIMENS: Right knee sent for pathology. OPERATIVE INDICATIONS: The patient is a 68-year-old female with underlying rheumatoid arthritis. She has had a long history of knee problems. She has been through extensive conservative treatment over the years, which became less successful over time. X-rays show advanced knee arthritis. She underwent a left knee replacement back in January with an excellent result from the orthopedic standpoint. She has continued to be debilitated by right knee pain and elected to proceed with surgical treatment. Of note, her x-rays have progressed even since her preoperative films of her left knee. OPERATIVE FINDINGS: Operative findings revealed advanced right knee DJD. She had pretty extensive grade 4 [id number] disease in all 3 compartments, most severe in the medial side. She had a moderate sized knee effusion. Not a lot of pannus formation. Diffuse osteopenia. OPERATIVE IMPLANTS: Operative implants consisted of: 1. Biomet Vanguard size 62.5 right posterior stabilized femoral component. 2. Biomet size 67 tibial tray. 3. A 12 mm posterior stabilized polyethylene insert. 4. A 25 x 8 all poly patella. OPERATIVE PROCEDURE: The patient was taken to the operating room, identified and placed on the operating table in supine position. All contact areas were appropriately padded. IV antibiotics were provided by anesthesia team. A spinal anesthetic and adductor canal block had been provided in the holding area. Garcia catheter was placed in sterile fashion. Right thigh tourniquet was then placed and the right lower extremity was then prepped and draped in usual sterile fashion. The right leg was elevated and exsanguinated with Esmarch and tourniquet was placed at 300 mmHg. An anterior approach of the right knee was then performed through a longitudinal incision centered over the patella. Sharp dissection was carried through subcutaneous tissue down to the level of the extensor mechanism. A medial parapatellar arthrotomy incision was made. Some subperiosteal dissection was carried out medially. The fat pad resected from beneath the patellar tendon. The lateral patellofemoral ligament was released. The patella was everted and knee was flexed. The osteophytes were taken off the distal femur. The ACL and PCL were then released from distal femur and the tibia subluxated anteriorly. External tibial alignment jig was then placed in the anterior face of the tibia and adjusted 14 mm medially. Proximal tibial cut was made to remove about 2 mm of bone from the most deficient aspect of the medial tibial plateau. Tibia was then sized to a size 67. We tried to maximize coverage due to osteopenia. Attention was then drawn to the femur. The distal femur was entered with a sharp drill bit. Intramedullary canal was suctioned. A right 5-degree valgus cutting guide was placed. Distal femoral cutting block was pinned in place. Distal femoral cut was made to take an additional 3 mm of bone off the distal femur. The femur was then sized to a size 62.5. We did downsize this slightly. The AP cutting block was pinned parallel to the epicondylar axis, which was 4 degrees of external rotation. The anterior cut, anterior chamfer cut, posterior cut, posterior chamfer cuts were made. Box cutting guide was placed and adjusted slightly lateral and the box cut was made. The knee was flexed. The remnants of the medial and lateral menisci were excised. The osteophytes were taken off the posterior aspect of the femur. A trial femoral component was placed. The tibial tray was pinned in maximum external rotation and drill and stem punch were used to create defect in proximal tibia for the tibial tray. The knee was then trialed and the 12 mm insert fit most appropriately. Attention was then drawn to the patella. The patella was cleaned of all soft tissues. Patella thickness measured 22 mm in thickness, it was cut down to 13. It was sized to a size 25 patella. Lug holes were drilled for 25 patella. Lateral osteophyte was removed. Patella button was placed. Knee was taken through range of motion, patella tracked nicely with no thumbs test. Attention was then drawn toward placement of the permanent components. All trial components were removed. Bone plug was placed into the distal femur to limit blood loss. A double batch of Palacos G cement was mixed. A Biomet Vanguard size 62.5 right posterior stabilized femoral component, Biomet size 67 tibial tray, a 12 mm posterior stabilized polyethylene insert, and a 28 x 8 all poly patella were then cemented in place. Knee was brought out into full extension until cement hardened. A final cement check was then performed. Pericapsular tissues were injected with a total of 100 mL of combination of 20 mL Exparel, 30 mL of normal saline, 50 mL of 0.25% Marcaine with epinephrine. The patient did receive 1 g of tranexamic acid. The tourniquet was then let down for final tourniquet time of 51 minutes. Hemostasis was assured with use of electrocautery. Extensor mechanism was then closed with combination of 1 PDS suture and #1 Vicryl suture in a [id number] fashion. Extensor mechanism was checked and found to be intact. Subcutaneous tissue was then closed with 2 Dexon suture in a buried interrupted fashion. Skin was closed with skin nieves. Leg was then cleaned and dried and sterile dressing with Xeroform, 4, x 4, sterile cast padding, Shun bandage were applied. The patient then transferred to the recovery room in a stable condition. The patient tolerated the procedure well with no complication. All needle and sponge counts were correct at the end of the operation. I attest to the content of the Intraoperative Record and any orders documented therein. Any exception s are noted below.
[2019-06-27] MEDS: TRAMADOL HCL 50 MG TABLET PO PRN ×4 (01:41→23:33)
[2019-06-27] MEDS: CEFAZOLIN 1000MG 1,000 MG/7.5 ML SYR IV SCH (04:16)
[2019-06-27] MEDS ORDERED: METOCLOPRAMIDE HCL 10 MG TABLET PO SCH (06:00)
[2019-06-27] MEDS ORDERED: LR 500ML BOLUS, THEN 15ML/HR IV SCH (06:00)
[2019-06-27] MEDS ORDERED: BUPIVACAINE LIPOSOME/PF 266 MG, BUPIVACAINE/EPINEPHRINE 50 ML, SODIUM CHLORIDE 0.9% 30 ... INFIL SCH (06:00)
[2019-06-27] MEDS ORDERED: CEFAZOLIN 2000MG 2,000 MG/15 ML SYR IV SCH (06:00)
[2019-06-27] MEDS ORDERED: LR 60ML/HR IV SCH (06:00)
[2019-06-27] MEDS ORDERED: GABAPENTIN 300 MG CAP PO SCH (06:00)
[2019-06-27] MEDS ORDERED: FAMOTIDINE 20 MG TAB PO SCH (06:00)
[2019-06-27] MEDS: ACETAMINOPHEN 500 MG TAB PO SCH ×3 (06:05→21:06)
[2019-06-27] MEDS ORDERED: TRANEXAMIC ACID 1,000 MG **IV Intra-op IV SCH (06:30)
[2019-06-27 06:44] LABS: Hematocrit (blood only) 30.9 % (37-47); Hemoglobin 10.1 g/dL (12.0-16.0); Mean Corpuscular Hemoglobin 28.3 pg (25-34); Mean Corpuscular Hgb Conc 32.7 g/dL (32-36); Mean Corpuscular Volume 86.6 fL (80-100); Mean Platelet Volume 9.2 fL (7.4-10.4); Platelet Count 302 K/uL (130-400); RDW Coefficient of Variation 14.9 % (11.5-14.5); Red Blood Count 3.57 M/uL (4.2-5.4); White Blood Count 9.67 K/uL (4.8-10.8)
[2019-06-27 07:16] LABS: BUN Creatinine Ratio 16.1 (10-20); Calcium 8.4 mg/dl (8.5-10.1); Est GFR (African American) 105.3; Est GFR (Non-African American) 90.9; Potassium 3.8 mmol/L (3.5-5.1)
--- NOTE | 2019-06-27 07:42 | Progress Note ---
DATE: 06/27/2019 SUBJECTIVE: A 68-year-old female with underlying rheumatoid disease, postop day 1 from right knee replacement. She had a recently good night. A bit of pain but got some medicine and doing better. No chest pain or shortness of breath. Not feeling dizzy or lightheaded. OBJECTIVE: VITAL SIGNS: Temperature 36.5. Vital signs stable. GENERAL: Physical examination shows a pleasant, middle-aged female. She is lying in bed, looks pretty comfortable. EXTREMITIES: Examination of the right leg reveals the leg to be well aligned. She can dorsiflex and plantarflex her foot appropriately. She is neurologically intact. LABORATORY DATA: Hemoglobin 10.1. Hematocrit 30.9. Electrolytes are stable. ASSESSMENT: A 68-year-old female postop day 1 from right knee replacement, doing pretty well. Pain has been reasonably well controlled. PLAN: 1. DVT prophylaxis including thigh-high TEDs, SCDs, and we are going to start her on Xarelto for 1 month. 2. PT/OT. Weight bear as tolerated. Right total knee protocol. 3. Pain control, doing pretty well with current pain regimen. 4. History of GI ulcer in the past. We will continue Protonix and limit all NSAIDs. 5. Disposition: Plan to discharge to home with some home health once adequately recovered and medically stable.
--- NOTE | 2019-06-27 08:24 | Anesthesiology Progress Note ---
Date of Service June 27, 2019 Anesthesia Post Procedure Vital Signs Vital Signs: Temp Pulse Pulse Resp BP Pulse Ox 06/27/19 07:25 36.8 C 76 16 138/65 93 06/27/19 04:05 36.5 C 71 15 144/76 H 94 06/26/19 23:52 36.7 C 68 15 134/74 96 06/26/19 19:34 36.4 C L 62 17 127/76 94 06/26/19 17:05 36.4 C L 70 17 110/69 95 06/26/19 16:12 36.3 C L 73 17 113/71 98 06/26/19 14:35 74 16 157/70 H 99 06/26/19 14:05 36.7 C 75 16 128/76 98 06/26/19 13:50 37.3 C 73 15 134/64 100 06/26/19 13:40 37.3 C 78 19 134/76 97 06/26/19 13:30 37.3 C 82 20 133/63 93 06/26/19 13:20 36.0 C L 78 18 137/66 96 06/26/19 13:10 36.0 C L 82 17 136/74 94 06/26/19 13:01 36.0 C L 84 12 145/67 H 97 06/26/19 09:31 36.6 C 65 18 154/71 H 98 Pain Intensity Right Knee: Pain Intensity: 7 Notes Mental Status: alert / awake / arousable and participated in evaluation Patient Amnestic to Procedure: Yes Nausea / Vomiting: adequately controlled Pain: adequately controlled Airway Patency, RR, SpO2: stable & adequate BP & HR: stable & adequate Hydration State: stable & adequate Neuraxial Anesthesia: was administered and sensory block resolved Anesthetic Complications: no major complications apparent
[2019-06-27] MEDS: FERROUS GLUCONATE 324 MG TAB PO SCH ×2 (08:45→16:31)
[2019-06-27] MEDS: MULTIVITAMIN TAB PO SCH (08:46)
[2019-06-27] MEDS: ASCORBIC ACID 500 MG TAB PO SCH ×2 (08:46→16:31)
[2019-06-27] MEDS: ESCITALOPRAM OXALATE 10 MG TAB PO SCH (08:46)
[2019-06-27] MEDS: DOCUSATE SODIUM 100 MG CAP PO SCH ×2 (08:46→21:07)
[2019-06-27] MEDS: METOPROLOL SUCC 25MG EXT REL TAB PO SCH ×2 (08:49→21:05)
[2019-06-27] MEDS ORDERED: MULTIVITAMIN TAB PO SCH (09:00)
[2019-06-27] MEDS: PANTOprazole 40 MG TAB PO SCH ×2 (09:41→21:05)
[2019-06-27] MEDS: RIVAROXABAN 10 MG TABLET PO SCH (14:00)
[2019-06-27] MEDS ORDERED: RIVAROXABAN 10 MG TABLET PO SCH (15:00)
[2019-06-27] MEDS: SENNA 8.6 MG TAB PO SCH (21:05)
[2019-06-28] MEDS: ACETAMINOPHEN 500 MG TAB PO SCH (05:34)
[2019-06-28] MEDS: TRAMADOL HCL 50 MG TABLET PO PRN (05:36)
[2019-06-28 06:31] LABS: Creatinine Clr Calc Pharmacy 79.7 ml/min; Est GFR (African American) 106.3; Est GFR (Non-African American) 91.7
[2019-06-28] MEDS: ASCORBIC ACID 500 MG TAB PO SCH (07:44)
[2019-06-28] MEDS: FERROUS GLUCONATE 324 MG TAB PO SCH (07:44)
[2019-06-28] MEDS: DOCUSATE SODIUM 100 MG CAP PO SCH (07:45)
[2019-06-28] MEDS: ESCITALOPRAM OXALATE 10 MG TAB PO SCH (07:45)
[2019-06-28] MEDS: MULTIVITAMIN TAB PO SCH (07:45)
[2019-06-28] MEDS: RIVAROXABAN 10 MG TABLET PO SCH (07:46)
[2019-06-28] MEDS: PANTOprazole 40 MG TAB PO SCH (07:46)
--- NOTE | 2019-06-28 07:46 | Progress Note ---
DATE: 06/28/2019 SUBJECTIVE: A 69-year-old white female with underlying rheumatoid disease, postop day 2 from right knee replacement. She is doing pretty well. Pain is controlled. Therapy went well. No chest pain or shortness of breath. Not feeling dizzy or lightheaded. OBJECTIVE: VITAL SIGNS: Temperature is 37.1. Vital signs stable. GENERAL: Shows a pleasant, middle-aged female. She is sitting up with her legs dangling over the edge of her bed and looks quite comfortable. EXTREMITIES: Examination of the right knee reveals the dressing to be clean, dry and intact. Calf is soft and supple. She is neurologically intact. ASSESSMENT: A 69-year-old white female postoperative day 2 from right knee replacement, doing pretty well. Pain is controlled. She is neurologically intact. PLAN: 1. DVT prophylaxis including thigh-high TEDs, SCDs, and she is on Xarelto for 1 month. 2. PT/OT. Weight bear as tolerated. Right total knee protocol. 3. Pain control, doing well with current pain regimen. 4. History of peptic ulcer disease. We will continue on her Protonix and limit all NSAIDs. 5. Disposition: Plan to discharge to home with some home health later today.
[2019-06-28] MEDS: METOPROLOL SUCC 25MG EXT REL TAB PO SCH (07:47)
--- NOTE | 2019-07-02 22:52 | Discharge Summary ---
ADMITTING PHYSICIAN AND SURGEON: Dr. Dangelo Villegas. ADMITTING DIAGNOSIS: Right knee degenerative joint disease. SURGERY PERFORMED: Right total knee arthroplasty. SECONDARY DIAGNOSES: Rheumatoid arthritis, peptic ulcer disease, hiatal hernia, basal cell skin cancer. CONSULTS: None obtained. HISTORY AND PHYSICAL EXAMINATION: Well documented in the patient's chart. HOSPITAL COURSE: The patient was admitted on 06/26/2019, underwent a total knee arthroplasty, tolerated the procedure well. There were no complications. She was transferred to the PACU postoperatively and later to the orthopedic floor for further care. She was given Ancef for antibiotic prophylaxis, ARELY stockings, SCDs and xarelto for DVT prophylaxis. Hemoglobin, hematocrit and vital signs were monitored during her hospital stay and remained stable. She did not require any blood transfusions. There were no complications. She has a history of peptic ulcer disease, received Protonix throughout her hospital stay as well. By postoperative day 2, she was tolerating a regular diet, pain was controlled with oral pain medicine. She was participating in physical therapy. By postop day 2, she was discharged home, set up with home health services. She was given printed discharge instructions as well as new prescriptions for extra strength Tylenol, iron supplement, tramadol and Xarelto. Continue her home medications, continue physical therapy, weightbearing as tolerated, ARELY stockings. Follow up approximately 2 weeks postop or sooner if there are any problems or concerns. MENDEZ
== END 2019-06-28 10:54 | disposition home health service (06) | DRG 470 ==
LOC: ASU 08:50 → 3E 13:00

== ENCOUNTER 2021-02-02 16:26 | Inpatient (IN) ==
[~2021-02-02 16:26] MED LIST changes: -ACETAMINOPHEN 500 MG TAB PO SCH; -BUPIVACAINE 0.25% 30 ML VIAL ONE; -BUPIVACAINE 0.5 % 5 MG/1 ML PF 10ML VIAL ONE; -BUPIVACAINE LIPOSOME/PF 266 MG, BUPIVACAINE/EPINEPHRINE 50 ML, SODIUM CHLORIDE 0.9% 30 ... INFIL SCH; +CALCIUM CHLORIDE 10% 10 ML SYR IV ONE; -CEFAZOLIN 2000MG 2,000 MG/15 ML SYR IV SCH; -EPINEPHrine INJ 1 MG/ML AMP ONE; +ETOMIDATE 2 MG/ML 20 ML VIAL IV ONE; -FAMOTIDINE 20 MG TAB PO SCH; -GABAPENTIN 300 MG CAP PO SCH; +HEPARIN (PORCINE) 1000 UNIT/ML 10 ML (CATH LAB USE ONLY) ONE; -METOCLOPRAMIDE HCL 10 MG TABLET PO SCH; +MIDAZOLAM HCL 1 MG/ML 2ML VIAL ONE; +NITROGLYCERIN/D5W 100MCG/ML 20ML SYR ONE; +SODIUM BICARB 8.4% INJ 50 MEQ/50 ML SYR IV ONE; +SODIUM CHLORIDE 0.9% 10ML FLUSH IV ONE; +SUCCINYLCHOLINE CHLORIDE 20 MG/ML 10 ML VIAL IV ONE; -TRANEXAMIC ACID 1,000 MG **IV Intra-op IV SCH; +fentaNYL citrate 100 MCG/2 ML VIAL ONE; +niCARdipine HCL INJ 2.5 MG/ML 10 ML AMP ONE
[2021-02-02] MEDS ORDERED: RAPID SEQUENCE INDUCTION BAG ONE (16:33)
[2021-02-02] MEDS ORDERED: ONDANSETRON INJ 2 MG/ML 2 ML VIAL IV ONE (16:35)
[2021-02-02] MEDS ORDERED: ONDANSETRON INJ 2 MG/ML 2 ML VIAL ONE ×2 (16:35→16:59)
[2021-02-02] MEDS ORDERED: PROPOFOL IV EMULSION 10 MG/ML 100 ML VIAL IV ONE (16:44)
[2021-02-02] MEDS ORDERED: propofoL 1,000 MG/100 ML VIAL IV SCH (16:45)
[2021-02-02] MEDS ORDERED: PROPOFOL BOLUS FROM BAG IV PRN (16:45)
[2021-02-02 16:52] LABS: Hematocrit (blood only) 40.9 % (37-47); Hemoglobin 13.3 g/dL (12.0-16.0); Mean Corpuscular Hemoglobin 30.1 pg (25-34); Mean Corpuscular Hgb Conc 32.5 g/dL (32-36); Mean Corpuscular Volume 92.5 fL (80-100); Mean Platelet Volume 9.9 fL (7.4-10.4); Platelet Count 406 K/uL (130-400); RDW Coefficient of Variation 13.5 % (11.5-14.5); RDW Standard Deviation 45.6 fL (36.4-46.3); Red Blood Count 4.42 M/uL (4.2-5.4); White Blood Count 12.62 K/uL (4.8-10.8)
[2021-02-02 17:06] LABS: Partial Thromboplastin Time 25.3 Seconds (21.0-31.0); Prothrombin Time 10.2 Seconds (9.0-12.0)
[2021-02-02] MEDS ORDERED: ICU PROTOCOL FOR HYPERGLYCEMIA PRN (17:08)
--- NOTE | 2021-02-02 17:08 | Emergency Department Note ---
History of Present Illness General Chief complaint: Cardiac Arrest/CPR Stated complaint: HEART ALERT Source: EMS Mode of arrival: EMS Limitations: clinical acuity (Patient had cardiac arrest) History of Present Illness Provider complaint: Cardiac arrest Onset (ago): hour(s) less than 1 Relieved By: + other (Cardiac defibrillation) Associated symptoms: + chest pain (Complained of burning chest pain earlier in the day to her ) This is a 70-year-old female status post cardiac arrest prior to arrival. The patient complained of burning chest pain to her earlier today. She got into her car and slowly went up on the curve. Bystanders saw her and brought her out of the car. She was in cardiac arrest and so they started bystander CPR right away. The police arrived and an AED was attached. She was defibrillated once. When the paramedics arrived she was still in ventricular fibrillation and so they defibrillated her twice with ROSC. They did a twelve-lead EKG which they then transmitted to myself. She had a EKG consistent with anterior lateral STEMI and a heart alert was called. The paramedics stated that there was no trauma involved in the arrest. Further history is unobtainable due to the condition of the patient. Home Medications Medication Instructions Recorded Confirmed Type abatacept (with maltose) [Orencia 750 ml IV MONTHLY 02/02/21 02/02/21 History (with maltose)] acetaminophen [Tylenol Extra 500 mg PO BID PRN 02/02/21 02/02/21 History Strength] alprazolam 0.5 mg PO BID PRN 02/02/21 02/02/21 History amoxicillin 2,000 mg PO DIRECTED PRN 02/02/21 02/02/21 History diclofenac sodium [Voltaren] 2 g TOPICAL QID PRN 02/02/21 02/02/21 History escitalopram oxalate [Lexapro] 10 mg PO DAILY 02/02/21 02/02/21 History metoprolol succinate 25 mg PO DAILY 02/02/21 02/02/21 History tretinoin 1 applic TOPICAL HS 02/02/21 02/02/21 History Allergies Allergy/AdvReac Type Severity Reaction Status Date / Time No Known Allergies Allergy Verified 02/02/21 16:45 Past Med/Surg History Medical History Anemia Anxiety Basal cell carcinoma of left upper arm Basal cell carcinoma of right upper arm Basal cell carcinoma of upper lip Chronic coughing Coronary artery calcification Emphysema lung History of duodenal ulcer Keratosis red area on right ankle, follows with Dr. Dias ([facility]). Leaky heart valve HX-20 YRS AGO-ECHO DONE-NO F/U WITH TOP LIFT SCOURER REQUIRED. NO MURMUR APPRECIATED ON EXAM AT PAT 4/9 Paroxysmal SVT (supraventricular tachycardia) dx'd March 2019 while inpatient at [facility] for GI bleed/anemia/stomach ulcer. Followed with Dr. Titus and had echo 7... no problems since March 2019 PVC's (premature ventricular contractions) follows with Dr. 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/INFECTION OVARY-TREATED WITH WARFARIN X 3 MONTHS-NO ISSUES SINCE Surgical History H/O ovarian cystectomy History of appendectomy History of bunionectomy of right great toe History of section History of colonoscopy History of esophagogastroduodenoscopy (EGD) History of hysterectomy TOTAL History of laparotomy ECTOPIC History of left knee replacement History of oophorectomy "History of Oophorectomy for Ectopic " History of tooth extraction Hx of right breast biopsy benign Status post Mohs surgery for basal cell carcinoma Family History Father Cardiac disorder Hypertension Family history of diabetes mellitus Grandfather Hypertension Grandmother Recurrent kidney stones Grandfather (Paternal) Family history of diabetes mellitus Other No family history of adverse response to anesthesia Social History Smoking Status: Unknown if ever smoked Cigarettes Per Day: 5-20; Second Hand Exposure: Yes; Hx Alcohol Use: Yes Alcohol type: wine Hx Substance Use: Yes (had medical marijuana--no longer uses) Last Used Substance Other:: last used Apr 2018 Preferred Language: Kiswahili Communication Ability: Effective Solid Propellant Processor Required: No Beliefs That Will Affect Care: None marital status: Current Living Situation: Spouse Feels Safe at Home: Yes Assistive Devices: Walker Review of Systems See HPI for pertinent positives & negatives. Unobtainable due to reduced consciousness Physical Exam Vital Signs Vital Signs - 24 hr 02/02/21 16:13 02/02/21 16:37 02/02/21 16:40 Pulse Rate 145 H 145 H 128 H Pulse Rate from SpO2 Sensor 145 H 129 H Respiratory Rate 29 H 29 H 30 H Respiratory Effort / Characteristics Mechanically Ventilated Blood Pressure 174/124 H 174/124 H 154/97 H Blood Pressure Mean 140 140 116 Blood Pressure Position Lying Pulse Oximetry 89 L 89 L 94 Oxygen Delivery Method Ambu-Bag Fraction of Inspired Oxygen Sepsis New/Unexplained Change in Mental Status N/A Sepsis Action Taken by Nursing No Action Required End-Tidal CO2 02/02/21 16:56 02/02/21 17:09 02/02/21 17:22 Pulse Rate 84 Pulse Rate from SpO2 Sensor Respiratory Rate 16 Respiratory Effort / Characteristics Blood Pressure Blood Pressure Mean Blood Pressure Position Pulse Oximetry 93 Oxygen Delivery Method Room Air Fraction of Inspired Oxygen 100 100 Sepsis New/Unexplained Change in Mental Status Sepsis Action Taken by Nursing End-Tidal CO2 26 The physical exam is limited due to the patient's condition. Constitutional: Vital signs reviewed. Eyes: Pupils are equal round minimally reactive to light. Conjunctiva are noninjected. HENT: Normocephalic atraumatic. Oral airway in place. Respiratory: Scattered rhonchi bilaterally. Breath sounds are equal bilaterall y. Cardiovascular: Tachycardic. Heart rate 145. GI: Soft, nondistended and nontender. Bowel sounds are present. Musculoskeletal: No peripheral edema. I/O left proximal humerus. Integumentary: No cyanosis. Neurological: The patient does not follow commands or open her eyes to voice. Psychiatric: Unable to assess. Procedures Intubation Time out performed: No sedative: Etomidate Mg Given: 20 paralytic: Succinylcholine Mg Given: 125 Laryngoscope: fiber optic video scope ET Tube Size: 7.5 ET Tube Uncuffed: No Tube Secured Depth (cm): 24 Tube Secured Location: teeth Tube Placement Confirmation: visualized tube passing through cords, equal breath sounds bilaterally, no breath sounds over epigastrium and confirmation by capnometry Patient Tolerated Procedure: no complications Additional Comments: Chest x-ray demonstrated the tube was 1 cm from the riri. It was pulled back 1 cm. Course Administered Medications Fentanyl Citrate (Fentanyl Bolus From Bag) 50 mcg IV Q60M PRN PRN Reason: Pain or Agitation Stop: 02/16/21 19:42 Last Admin: 02/02/21 21:40 Dose: 25 mcg Documented by: [id number] Propofol (Diprivan) 1,000 mg in 100 mls @ 10.68 mls/hr IV .Q9H22M BRIJESH; Protocol Stop: 02/05/21 16:44 Last Admin: 02/02/21 19:15 Dose: 15 mcg/kg/min, 8 mls/hr Documented by: [id number] Cosigned by: [id number] Fentanyl Citrate (Fentanyl Drip) 1,250 mcg in 250 mls @ 10 mls/hr IV .Q25H BRIJESH; Protocol Stop: 02/16/21 19:44 Last Titration: 02/02/21 21:40 Dose: 50 mcg/hr, 10 mls/hr Documented by: [id number] Cosigned by: [id number] Admin: 02/02/21 20:46 Dose: 25 mcg/hr, 5 mls/hr Documented by: [id number] Cosigned by: [id number] Famotidine 20 mg/ Syringe 5 mls @ 2.5 mls/min IV BID BRIJESH Stop: 03/04/21 20:59 Last Admin: 02/02/21 21:20 Dose: 2.5 mls/min Documented by: [id number] Ampicillin Sodium/Sulbactam Sodium 3,000 mg/ Sodium Chloride 108 mls @ 200 mls/hr IV Q6H BRIJESH; Protocol Stop: 02/09/21 19:59 Last Infusion: 02/02/21 22:13 Dose: 0 mls/hr Documented by: [id number] Admin: 02/02/21 21:18 Dose: 200 mls/hr Documented by: [id number] Vasopressin 20 units/ Sodium (Chloride) 101 mls @ 9.09 mls/hr IV .Q11H7M BRIJESH; Protocol Stop: 03/04/21 20:14 Last Admin: 02/02/21 20:47 Dose: 0.04 unit/min, 12.1 mls/hr Documented by: [id number] Cosigned by: [id number] Insulin Human Regular 250 (units/ Sodium Chloride) 250 mls @ 4.6 mls/hr IV .Q24H BRIJESH; Protocol Stop: 03/04/21 21:29 Last Titration: 02/02/21 22:21 Dose: 4.6 units/hr, 4.6 mls/hr Documented by: [id number] Cosigned by: [id number] Admin: 02/02/21 21:24 Dose: 3.3 units/hr, 3.3 mls/hr Documented by: [id number] Cosigned by: [id number] Norepinephrine Bitartrate (Levophed/D5w) 8 mg in 508 mls @ 16.955 mls/hr IV .Q24H BRIJESH; Protocol Stop: 03/04/21 21:59 Last Admin: 02/02/21 22:12 Dose: 0.5 mcg/kg/min, 169.5 mls/hr Documented by: [id number] Cosigned by: [id number] Amiodarone HCl/Dextrose (Nexterone / D5w) 360 mg in 200 mls @ 33.333 mls/hr IV ONE ONE; Protocol Stop: 02/03/21 03:54 Last Admin: 02/02/21 22:13 Dose: 1 mg/min, 33.3 mls/hr Documented by: [id number] Cosigned by: [id number] Discontinued Medications Albuterol (Albut/Ipratrop 3mg/0.5mg Neb 3 Ml Vial) Confirm Administered Dose 3 ml .ROUTE .STK-MED ONE Stop: 02/02/21 20:58 Last Admin: 02/02/21 22:22 Dose: 3 ml Documented by: [id number] Albuterol (Albut/Ipratrop 3mg/0.5mg Neb 3 Ml Vial) Confirm Administered Dose 3 ml .ROUTE .STK-MED ONE Stop: 02/02/21 22:00 Last Admin: 02/02/21 22:23 Dose: 3 ml Documented by: [id number] Amiodarone HCl/Dextrose (Amiodarone 360mg / 200ml D5w) Confirm Administered Dose 360 mg IV .STK-MED ONE Stop: 02/02/21 21:59 Last Admin: 02/02/21 22:12 Dose: Not Given Documented by: [id number] Eptifibatide (Eptifibatide 2 Mg/Ml 10 Ml Vial (Theat[employer] Sc[employer] Designer Use Only)) Confirm Administered Dose 20 mg IV .STK-MED ONE Stop: 02/02/21 17:20 Last Admin: 02/02/21 20:40 Dose: Not Given Documented by: [id number] Eptifibatide (Eptifibatide 0.75 Mg/Ml 75mg Vial (The[employer]rical Sc[employer]er Use Only)) Confirm A dministered Dose 75 mg .ROUTE .STK-MED ONE Stop: 02/02/21 17:39 Last Admin: 02/02/21 20:41 Dose: Not Given Documented by: [id number] Fentanyl Citrate (Fentanyl Citrate 100 Mcg/2 Ml Vial) Confirm Administered Dose 100 mcg .ROUTE .STK-MED ONE Stop: 02/02/21 16:23 Last Admin: 02/02/21 20:39 Dose: Not Given Documented by: [id number] Fentanyl Citrate (Fentanyl Citrate 100 Mcg/2 Ml Vial) Confirm Administered Dose 100 mcg .ROUTE .STK-MED ONE Stop: 02/02/21 18:31 Last Admin: 02/02/21 20:41 Dose: Not Given Documented by: [id number] Heparin Sodium (Porcine) (Heparin (Porcine) 1000 Unit/Ml 10 Ml (Theatrical Sc[employer] Designer Use Only)) Confirm Administered Dose 10,000 units .ROUTE .STK-MED ONE Stop: 02/02/21 16:23 Last Admin: 02/02/21 20:39 Dose: Not Given Documented by: [id number] Heparin Sodium/Sodium Chloride (Heparin In Nss Infusion 1000 Unit/500 Ml (2 U/Ml) Bag) Confirm Administered Dose 3,000 units IV .STK-MED ONE Stop: 02/02/21 16:23 Last Admin: 02/02/21 20:39 Dose: Not Given Documented by: [id number] Sodium Chloride (Nss 1000ml) 1,000 mls @ 100 mls/hr IV .Q10H [facility] Stop: 02/02/21 21:59 Last Admin: 02/02/21 19:30 Dose: 100 mls/hr Documented by: [id number] Eptifibatide (Integrilin) 75 mg in 100 mls @ 7.12 mls/hr IV .Q14H3M [facility]; Protocol Stop: 02/02/21 22:00 Last Admin: 02/02/21 19:30 Dose: 1 mcg/kg/min, 7.1 mls/hr Documented by: [id number] Cosigned by: [id number] Calcium Gluconate 2,000 mg/ (Sodium Chloride) 70 mls @ 240 mls/hr IV NOW ONE Stop: 02/02/21 21:17 Last Infusion: 02/02/21 22:14 Dose: 0 mls/hr Documented by: [id number] Admin: 05/18/21 21:19 Dose: 240 mls/hr Documented by: [id number] Potassium Chloride (K Pradeep / Wtr) 10 meq in 100 mls @ 100 mls/hr IV Q1H BRIJESH Stop: 02/02/21 22:59 Last Admin: 02/02/21 21:52 Dose: 100 mls/hr Documented by: [id number] Infusion: 02/02/21 21:52 Dose: 100 mls/hr Documented by: [id number] Admin: 02/02/21 21:20 Dose: 100 mls/hr Documented by: [id number] Furosemide 20 mg/ Syringe 2 mls @ 4 mls/min IV ONE ONE Stop: 02/02/21 23:01 Last Admin: 02/02/21 23:12 Dose: 4 mls/min Documented by: [id number] Insulin Human Regular (Novolin-R Bolus From Bag) 3.5 units IV ONE ONE Stop: 02/02/21 21:31 Last Admin: 02/02/21 21:27 Dose: 3.5 units Documented by: [id number] Cosigned by: [id number] Midazolam HCl (Midazolam Hcl 1 Mg/Ml 2ml Vial) Confirm Administered Dose 2 mg .ROUTE .STK-MED ONE Stop: 02/02/21 16:23 Last Admin: 02/02/21 20:39 Dose: Not Given Documented by: [id number] Midazolam HCl (Midazolam Hcl 1 Mg/Ml 2ml Vial) Confirm Administered Dose 2 mg .ROUTE .STK-MED ONE Stop: 02/02/21 18:31 Last Admin: 02/02/21 20:41 Dose: Not Given Documented by: [id number] Miscellaneous (Rapid Sequence Induction Bag) Confirm Administered Dose 1 ea .ROUTE .STK-MED ONE Stop: 02/02/21 16:34 Last Admin: 02/02/21 20:39 Dose: Not Given Documented by: [id number] Miscellaneous (Icu Severe Hyperglycemia Protocol) 1 ea N/A ONE ONE Stop: 02/02/21 20:50 Last Admin: 02/02/21 21:16 Dose: 1 ea Documented by: [id number] Nicardipine HCl (Nicardipine Hcl Inj 2.5 Mg/Ml 10 Ml Amp) Confirm Administered Dose 25 mg .ROUTE .STK-MED ONE Stop: 02/02/21 16:23 Last Admin: 02/02/21 20:39 Dose: Not Given Documented by: [id number] Nitroglycerin/Dextrose (Nitroglycerin/D5w 100mcg/Ml 20ml Syr) Confirm Administered Dose 2,000 mcg .ROUTE .Geogoer-Artist Growth ONE Stop: 02/02/21 16:24 Last Admin: 02/02/21 20:39 Dose: Not Given Documented by: [id number] Norepinephrine Bitartrate (Norepinephrine Bitartrate 1 Mg/Ml 4 Ml Vial (Theatrical Scenic [employer]er Use Only)) Confirm Administered Dose 4 mg .ROUTE .Geogoer-Artist Growth ONE Stop: 02/02/21 17:12 Last Admin: 02/02/21 20:40 Dose: Not Given Documented by: [id number] Norepinephrine Bitartrate (Norepinephrine Bitartrate 1 Mg/Ml 4 Ml Vial (Theatrical Scenic [employer]er Use Only)) Confirm Administered Dose 4 mg .ROUTE .Geogoer-Artist Growth ONE Stop: 02/02/21 17:13 Last Admin: 02/02/21 20:40 Dose: Not Given Documented by: [id number] Norepinephrine Bitartrate (Norepinephrine/D5w 8 Mg/508 Ml) Confirm Administered Dose 8 mg IV .Geogoer-Artist Growth ONE Stop: 02/02/21 21:56 Last Admin: 02/02/21 22:11 Dose: Not Given Documented by: [id number] Ondansetron HCl (Ondansetron Inj 2 Mg/Ml 2 Ml Vial) Confirm Administered Dose 4 mg .ROUTE .Geogoer-Artist Growth ONE Stop: 02/02/21 16:36 Last Admin: 02/02/21 20:40 Dose: Not Given Documented by: [id number] Ondansetron HCl (Ondansetron Inj 2 Mg/Ml 2 Ml Vial) Confirm Administered Dose 4 mg .ROUTE .Geogoer-Artist Growth ONE Stop: 02/02/21 17:00 Last Admin: 02/02/21 20:40 Dose: Not Given Documented by: [id number] Ondansetron HCl (Ondansetron Inj 2 Mg/Ml 2 Ml Vial) 4 mg IV 1635 ONE Stop: 02/02/21 16:36 Last Admin: 02/02/21 20:40 Dose: Not Given Documented by: [id number] Pantoprazole Sodium ([facility]razole 40 Mg Tab) [facility] Stop: 03/04/21 19:29 Last Admin: 02/02/21 22:46 Dose: Not Given Documented by: [id number] Propofol (Propofol Iv Emulsion 10 Mg/Ml 100 Ml Vial) Confirm Administered Dose 1,000 mg IV .STK-MED ONE Stop: 02/02/21 16:45 Last Admin: 02/02/21 20:40 Dose: Not Given Documented by: [id number] Sodium Bicarbonate (Sodium Bicarb 8.4% Inj 50 Meq/50 Ml Syr) Confirm Administered Dose 50 meq IV .STK-MED ONE Stop: 02/02/21 18:44 Last Admin: 02/02/21 20:41 Dose: Not Given Documented by: [id number] Ticagrelor (Ticagrelor 90 Mg Tab) Confirm Administered Dose 180 mg PO .STK-MED ONE Stop: 02/02/21 18:48 Last Admin: 02/02/21 20:41 Dose: Not Given Documented by: [id number] Critical Care Time Critical Care Time: Yes Total Critical Care Time: 33 I have personally spent approximately 33 minutes of critical care time in the direct management of this patient. This includes bedside care, interpretation of diagnostic studies, and testing, discussion with consultants, patient, and family members, and other required patient management activities. These minutes are in excess of all separately billable procedures. Medical Decision Making Differential Diagnosis STEMI, cardiac arrest, ventricular fibrillation, ventricular tachycardia, coronary artery dissection Medical Records Attestation: I reviewed the patient's medical records. I did perform a limited focused review of portions of the patient's old chart on the electronic medical record. The patient has had no recent pertinent visits to this hospital. Home Medications Current Medication List: was personally reviewed by me Laboratory Data Attestation: I reviewed the patient's lab results. Result diagrams: 02/02/21 20:20 02/02/21 20:20 Lab Results 02/02/21 02/02/21 02/02/21 Range/Units 16:33 16:33 16:43 WBC (4.8-10.8) K/uL RBC (4.2-5.4) M/uL Hgb (12.0-16.0) g/dL Hct (37-47) % MCV (80-100) fL MCH (25-34) pg MCHC (32-36) g/dL RDW Std Deviation (36.4-46.3) fL RDW Coeff of Prince (11.5-14.5) % Plt Count (130-400) K/uL MPV (7.4-10.4) fL Immature Gran % (Auto) % Neut % (Auto) % Lymph % (Auto) % Grimes % (Auto) % Eos % (Auto) % Baso % (Auto) % Neut # (Auto) (1.4-6.5) K/uL Lymph # (Auto) (1.2-3.4) K/uL Grimes # (Auto) (0.11-0.59) K/uL Eos # (Auto) (0-0.5) K/uL Baso # (Auto) (0-0.2) K/uL Immature Gran # (Auto) (0.00-0.02) K/uL PT (9.0-12.0) Seconds INR (0.9-1.1) APTT (21.0-31.0) Seconds PTT Ratio Activ Coag Time Kaolin (94-140) SECONDS Sodium (136-145) mmol/L Potassium (3.5-5.1) mmol/L Chloride (98-107) mmol/L Carbon Dioxide (21-32) mmol/L Anion Gap (3-11) BUN (7-18) mg/dl Creatinine (0.6-1.2) mg/dl Est Cr Clr Drug Dosing ml/min Est GFR ( Amer) ml/min Est GFR (Non-Af Amer) ml/min BUN/Creatinine Ratio (10-20) Glucose (70-99) mg/dl Calcium (8.5-10.1) mg/dl Magnesium (1.8-2.4) mg/dl Total Bilirubin (0.2-1) mg/dl AST (15-37) U/L ALT (12-78) U/L Alkaline Phosphatase (45-117) U/L Total Creatine Kinase (26-192) U/L CK-MB (CK-2) (0.5-3.6) ng/ml CK/CKMB % Calc (0-3.0) Troponin I 0.432 H* (0-0.045) ng/ml Total Protein (6.4-8.2) gm/dl Albumin (3.4-5.0) gm/dl Globulin (2.5-4.0) gm/dl Albumin/Globulin Ratio (0.9-2) Lipase (73-393) U/L Beta-Hydroxybutyric Acd (0.2-2.81) mg/dl TSH (0.300-4.500) uIu/ml COVID-19 Eval Order Covid19 at [facility] SARS-CoV-2 (PCR) NEGATIVE (Negative) Blood Type Antibody Screen 02/02/21 02/02/21 02/02/21 Range/Units 16:43 16:43 16:43 WBC 12.62 H (4.8-10.8) K/uL RBC 4.42 (4.2-5.4) M/uL Hgb 13.3 (12.0-16.0) g/dL Hct 40.9 (37-47) % MCV 92.5 (80-100) fL MCH 30.1 (25-34) pg MCHC 32.5 (32-36) g/dL RDW Std Deviation 45.6 (36.4-46.3) fL RDW Coeff of Prince 13.5 (11.5-14.5) % Plt Count 406 H (130-400) K/uL MPV 9.9 (7.4-10.4) fL Immature Gran % (Auto) 1.3 % Neut % (Auto) 60.3 % Lymph % (Auto) 33.9 % Grimes % (Auto) 4.1 % Eos % (Auto) 0.2 % Baso % (Auto) 0.2 % Neut # (Auto) 7.61 H (1.4-6.5) K/uL Lymph # (Auto) 4.28 H (1.2-3.4) K/uL Grimes # (Auto) 0.52 (0.11-0.59) K/uL Eos # (Auto) 0.03 (0-0.5) K/uL Baso # (Auto) 0.02 (0-0.2) K/uL Immature Gran # (Auto) 0.16 H (0.00-0.02) K/uL PT 10.2 (9.0-12.0) Seconds INR 1.0 (0.9-1.1) APTT 25.3 (21.0-31.0) Seconds PTT Ratio 1.0 Activ Coag Time Kaolin (94-140) SECONDS Sodium 137 (136-145) mmol/L Potassium 3.7 (3.5-5.1) mmol/L Chloride 103 (98-107) mmol/L Carbon Dioxide 16 L (21-32) mmol/L Anion Gap 17.0 H (3-11) BUN 15 (7-18) mg/dl Creatinine 1.26 H (0.6-1.2) mg/dl Est Cr Clr Drug Dosing 44.5 ml/min Est GFR ( Amer) 49.3 ml/min Est GFR (Non-Af Amer) 42.5 ml/min BUN/Creatinine Ratio 12.2 (10-20) Glucose 331 H* (70-99) mg/dl Calcium 9.1 (8.5-10.1) mg/dl Magnesium 2.5 H (1.8-2.4) mg/dl Total Bilirubin 0.4 (0.2-1) mg/dl AST 189 H (15-37) U/L ALT 144 H (12-78) U/L Alkaline Phosphatase 139 H (45-117) U/L Total Creatine Kinase 127 (26-192) U/L CK-MB (CK-2) 3.9 H (0.5-3.6) ng/ml CK/CKMB % Calc 3.1 H (0-3.0) Troponin I (0-0.045) ng/ml Total Protein 6.7 (6.4-8.2) gm/dl Albumin 3.4 (3.4-5.0) gm/dl Globulin 3.3 (2.5-4.0) gm/dl Albumin/Globulin Ratio 1.0 (0.9-2) Lipase 233 (73-393) U/L Beta-Hydroxybutyric Acd (0.2-2.81) mg/dl TSH 2.060 (0.300-4.500) uIu/ml COVID-19 Eval Order SARS-CoV-2 (PCR) (Negative) Blood Type Antibody Screen 02/02/21 02/02/21 Range/Units 16:44 17:45 WBC (4.8-10.8) K/uL RBC (4.2-5.4) M/uL Hgb (12.0-16.0) g/dL Hct (37-47) % MCV (80-100) fL MCH (25-34) pg MCHC (32-36) g/dL RDW Std Deviation (36.4-46.3) fL RDW Coeff of Prince (11.5-14.5) % Plt Count (130-400) K/uL MPV (7.4-10.4) fL Immature Gran % (Auto) % Neut % (Auto) % Lymph % (Auto) % Grimes % (Auto) % Eos % (Auto) % Baso % (Auto) % Neut # (Auto) (1.4-6.5) K/uL Lymph # (Auto) (1.2-3.4) K/uL Grimes # (Auto) (0.11-0.59) K/uL Eos # (Auto) (0-0.5) K/uL Baso # (Auto) (0-0.2) K/uL Immature Gran # (Auto) (0.00-0.02) K/uL PT (9.0-12.0) Seconds INR (0.9-1.1) APTT (21.0-31.0) Seconds PTT Ratio Activ Coag Time Kaolin 274 H (94-140) SECONDS Sodium (136-145) mmol/L Potassium (3.5-5.1) mmol/L Chloride (98-107) mmol/L Carbon Dioxide (21-32) mmol/L Anion Gap (3-11) BUN (7-18) mg/dl Creatinine (0.6-1.2) mg/dl Est Cr Clr Drug Dosing ml/min Est GFR ( Amer) ml/min Est GFR (Non-Af Amer) ml/min BUN/Creatinine Ratio (10-20) Glucose (70-99) mg/dl Calcium (8.5-10.1) mg/dl Magnesium (1.8-2.4) mg/dl Total Bilirubin (0.2-1) mg/dl AST (15-37) U/L ALT (12-78) U/L Alkaline Phosphatase (45-117) U/L Total Creatine Kinase (26-192) U/L CK-MB (CK-2) (0.5-3.6) ng/ml CK/CKMB % Calc (0-3.0) Troponin I (0-0.045) ng/ml Total Protein (6.4-8.2) gm/dl Albumin (3.4-5.0) gm/dl Globulin (2.5-4.0) gm/dl Albumin/Globulin Ratio (0.9-2) Lipase (73-393) U/L Beta-Hydroxybutyric Acd (0.2-2.81) mg/dl TSH (0.300-4.500) uIu/ml COVID-19 Eval Order SARS-CoV-2 (PCR) (Negative) Blood Type O Positive Antibody Screen NEGATIVE Imaging Data Radiologist's Impression: Chest X-Ray 02/02/21 16:23 XR chest 1V portable HISTORY: Atypical Chest pain COMPARISON: Chest 03/19/2019. FINDINGS: The endotracheal tube terminates approximately 1 cm from the riri. This should be pulled back by approximately 1 to 2 cm. No pneumothorax. No pleural effusions. There slight elevation of the right hemidiaphragm. The cardiac silhouette is enlarged. There is a patchy right upper lobe airspace op acity. Bilateral hilar prominence with mild diffuse interstitial thickening. IMPRESSION: 1. The endotracheal tube terminates approximately 1 cm from the riri. This should be pulled back by approximately 1 to 2 cm. 2. Hazy right upper lobe airspace opacity with diffuse interstitial thickening. This could represent a pneumonia or developing asymmetric pulmonary edema. 3. Bilateral hilar prominence. ACT 112: Negative or not required by law. Electronically signed by: Jonatan Chaidez M.D. 02/02/2021 5:30 PM ECG Data Attestation: I personally reviewed and interpreted this ECG as follows: Indication: + other (Cardiac arrest) Rate (beats per minute): 146 Rhythm: + sinus tachycardia ECG ST segments: + ST elevation MDM Narrative I did provide prehospital medical command for the patient. The patient had a witnessed arrest according to EMS. She was defibrillated 3 times prior to arrival and achieved ROSC. She did have runs of V. tach and so I did instruct the paramedics to give her amiodarone 150 mg IV. Prehospital EKG per my interpretation shows an anterior lateral STEMI and so a heart alert was called. Loss contact with EMS part way through the call could not reestablish communication. I did evaluate the patient immediately on arrival as noted above. Code Arctic protocol was initiated. IV access was established. I did place an order for continuous cardiac monitoring. The monitor showed sinus tac hycardia at a rate of 143 bpm. I did order and personally review the patient's 12-lead EKG as described above. She has a anterior lateral STEMI. I did speak to Dr. Guidry of cardiology. We agreed that intubation would be best at this juncture. I did perform rapid sequence intubation as described above. I did order and personally reviewed the images of the patient's chest x-ray as described above. The ET tube tip was 1 cm from the riri and so respiratory therapy brought it back 1 cm. I did order and review the patient's blood work as noted in the electronic medical record. White count is 12.6. Platelets 406. CO2 is 62. Creatinine 1.26. Glucose is 331. Troponin is 0.3. The patient was immediately taken to the cardiac [facility] by Dr. Guidry. I did inform the patient's of the events that transpired in the ED and prehospital. The director of casework did take him to the [facility] waiting area. I did discuss the case with Dr. Armando as well as Dr. Fu of critical care. Impression & Plan Cardiopulmonary arrest with successful resuscitation, ST elevation AR (STEMI), Ventricular fibrillation, Acute hyperglycemia Discharge Plan Visit Data Chief Complaint: Cardiac Arrest/CPR Stated Complaint: HEART ALERT ED Provider: Evelio Monge Discharge Problem: Cardiopulmonary arrest with successful resuscitation, ST elevation AR (STEMI), Ventricular fibrillation, Acute hyperglycemia Patient Disposition: Being Evaluated by Hospitalist Discharge Instructions Interventions: ED Discharge Assessment Last Done: 02/02/21 17:45 Discharge Problem: ST elevation AR (STEMI) Qualifiers: Involved coronary artery: unspecified coronary artery Qualified Code(s): I21.3 - ST elevation (STEMI) myocardial infarction of unspecified site
[2021-02-02] MEDS ORDERED: NOREPINEPHRINE BITARTRATE 1 MG/ML 4 ML VIAL (CATH LAB USE ONLY) ONE ×2 (17:11→17:12)
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
[2021-02-02] MEDS ORDERED: EPTIFIBATIDE 2 MG/ML 10 ML VIAL (CATH LAB USE ONLY) IV ONE (17:19)
[2021-02-02] MEDS ORDERED: STAT IV Infusion **Titration per Protocol STA ×4 (17:23→21:54)
[2021-02-02 17:24] LABS: Basophils # (auto) 0.02 K/uL (0-0.2); Basophils % (auto) 0.2 %; Eosinophils # (auto) 0.03 K/uL (0-0.5); Eosinophils % (auto) 0.2 %; Immature Granulocytes # (auto) 0.16 K/uL (0.00-0.02); Immature Granulocytes % (auto) 1.3 %; Lymphocytes # (auto) 4.28 K/uL (1.2-3.4); Lymphocytes % (auto) 33.9 %; Monocytes # (auto) 0.52 K/uL (0.11-0.59); Monocytes % (auto) 4.1 %; Neutrophils # (auto) 7.61 K/uL (1.4-6.5); Neutrophils % (auto) 60.3 %
[2021-02-02 17:25] LABS: Albumin Level 3.4 gm/dl (3.4-5.0); BUN Creatinine Ratio 12.2 (10-20); Bilirubin,Total 0.4 mg/dl (0.2-1); Calcium 9.1 mg/dl (8.5-10.1); Creatine Kinase MB 3.9 ng/ml (0.5-3.6); Creatinine Clr Calc Pharmacy 44.5 ml/min; Est GFR (African American) 49.3 ml/min; Est GFR (Non-African American) 42.5 ml/min; Globulin 3.3 gm/dl (2.5-4.0); Magnesium 2.5 mg/dl (1.8-2.4); Potassium 3.7 mmol/L (3.5-5.1); Thyroid Stimulating Hormone 2.06 uIu/ml (0.300-4.500); Total Protein 6.7 gm/dl (6.4-8.2)
--- NOTE | 2021-02-02 17:31 | XRay Report ---
XR chest 1V portable HISTORY: Atypical Chest pain COMPARISON: Chest 03/19/2019. FINDINGS: The endotracheal tube terminates approximately 1 cm from the riri. This should be pulled back by approximately 1 to 2 cm. No pneumothorax. No pleural effusions. There slight elevation of the right hemidiaphragm. The cardiac silhouette is enlarged. There is a patchy right upper lobe airspace opacity. Bilateral hilar prominence with mild diffuse interstitial thickening. IMPRESSION: 1. The endotracheal tube terminates approximately 1 cm from the riri. This should be pulled back by approximately 1 to 2 cm. 2. Hazy right upper lobe airspace opacity with diffuse interstitial thickening. This could represent a pneumonia or developing asymmetric pulmonary edema. 3. Bilateral hilar prominence. ACT 112: Negative or not required by law. Electronically signed by: Jonatan Chaidez M.D. 02/02/2021 5:30 PM
[2021-02-02] MEDS ORDERED: EPTIFIBATIDE 0.75 MG/ML 75MG VIAL (CATH LAB USE ONLY) ONE (17:38)
[2021-02-02] MEDS ORDERED: MIDAZOLAM HCL 1 MG/ML 2ML VIAL ONE (18:30)
[2021-02-02] MEDS ORDERED: fentaNYL citrate 100 MCG/2 ML VIAL ONE (18:30)
[2021-02-02] MEDS ORDERED: SODIUM BICARB 8.4% INJ 50 MEQ/50 ML SYR IV ONE (18:43)
[2021-02-02 18:44] LABS: iSTAT Arterial Blood Gas HCO3 17 meg/L (19-24); iSTAT Arterial Blood Gas pCO2 39 mmHg (35-46); iSTAT Arterial Blood Gas pH 7.26 (7.35-7.45); iSTAT Arterial Blood Gas pO2 64 mmHg (80-95); iSTAT Carbon Dioxide 18 mmol/L (24-31)
[2021-02-02] MEDS ORDERED: TICAGRELOR 90 MG TAB PO ONE (18:47)
[2021-02-02] MEDS ORDERED: ACETAMINOPHEN 500 MG TAB PO PRN (19:10)
[2021-02-02] MEDS: propofoL 1,000 MG/100 ML VIAL IV SCH (19:15)
[2021-02-02] MEDS ORDERED: EPTIFIBATIDE BOLUS/DRIP IV STA (19:17)
[2021-02-02] MEDS ORDERED: PANTOprazole 40 MG TAB PO SCH (19:30)
[2021-02-02] MEDS ORDERED: EPTIFIBATIDE 75 MG/100 ML VIAL IV SCH (19:30)
[2021-02-02] MEDS ORDERED: SODIUM CHLORIDE 0.9% 1000ML 1,000 ML IV SCH (19:30)
--- NOTE | 2021-02-02 19:30 | Post Operative Brief Note ---
Cardiology Brief Post Op Date of Surgery February 02, 2021 Pre & Post Diagnosis Cardiac arrest Coronary artery disease Procedure coronary angiography PCI to LAD Left heart catheterization Ultrasound guided vascular access Central venous catheter placement Internet Manager Robert Guidry MD Engineer Technician Anthony Estimated Blood Loss 15 Findings See Below heavily calcified 100% occluded mid LAD. 99% apical LAD PCI of proximal to mid LAD with 2 overlapping BHANU (2.5 x 30, 2.5 x 26 Markos; post-dilated with 3.0 NC). Angioplasty of apical LAD with 2.0 balloon. Placement of quatro cooling catheter to right CFV Fluids -- Specimens Specimen Description: -- Anesthesia Type RN Sedation Complications none Disposition Accompanied Patient To Recovery: Yes Disposition: Surgical ICU Overlapping Procedure I was present for: the critical portions of procedure. I was immediately available: during the entire case. Back up surgeon: was not required during procedure.
[2021-02-02] MEDS ORDERED: fentaNYL DRIP 1,250 MCG/250 ML BAG IV SCH (19:45)
--- NOTE | 2021-02-02 20:10 | CT Scan Report ---
CT SCAN OF THE BRAIN WITHOUT IV CONTRAST CLINICAL HISTORY: Status post cardiac arrest. COMPARISON STUDY: No priors. TECHNIQUE: Unenhanced axial CT scan of the brain is performed from the vertex to the skull base. A do se lowering technique was utilized adhering to the principles of ALARA. 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 Brain parenchyma: There are age-related involutional changes noting minimal subcortical and perivent ricular microangiopathic change. There is no hemorrhage, mass effect, or evidence of acute territoria l ischemia by CT criteria. Fairchild-white matter differentiation is preserved. No extra-axial fluid colle ction is seen. Ventricles, sulci, cisterns: Prominent secondary to involutional change. Intracranial vasculature: There is atherosclerotic calcification of the cavernous carotid and vertebr al arteries. Residual IV contrast is noted throughout the intracranial circulation. Calvarium: Unremarkable. Sinuses and mastoids: Air-fluid levels are noted within the sphenoid sinuses. The remaining visualize d paranasal sinuses are clear. There are trace mastoid effusions. Orbits: The bony orbits are grossly intact. IMPRESSION: There is no hemorrhage, mass effect, or evidence of acute territorial ischemia by CT maurisio lincoln. ACT 112: Negative or not required by law. Electronically signed by: Zak Urias M.D. 02/02/2021 8:09 PM
[2021-02-02 20:39] LABS: Hematocrit (blood only) 35.5 % (37-47); Hemoglobin 11.6 g/dL (12.0-16.0)
[2021-02-02] MEDS: VASOPRESSIN 20 UNITS in 0.9 % SODIUM CHLORIDE 100 ML IV SCH (20:47)
[2021-02-02] MEDS ORDERED: ICU SEVERE HYPERGLYCEMIA PROTOCOL ONE (20:49)
[2021-02-02 20:52] LABS: INR 1.1 (0.9-1.1); Partial Thromboplastin Ratio 2.5; Prothrombin Time 11.2 Seconds (9.0-12.0)
[2021-02-02 20:56] LABS: BUN Creatinine Ratio 18.3 (10-20); Calcium 7.7 mg/dl (8.5-10.1); Est GFR (African American) 69.4 ml/min; Est GFR (Non-African American) 59.8 ml/min; Magnesium 2.3 mg/dl (1.8-2.4); Phosphorus 4.3 mg/dl (2.5-4.9); Potassium 3.8 mmol/L (3.5-5.1)
--- NOTE | 2021-02-02 20:56 | Procedure Note ---
Procedure Note Date of Service February 02, 2021 Procedure: Arterial Line Placement Attending: Dr. Fu APC: Francisco Javier Borjas PA-C Indication: Monitoring on Pressors Anesthesia: None Emergent consent implied in the setting of need for close hemodynamic monitoring and frequent ABG secondary to cardiac arrest and need for therapeutic hypothermia protocol. A time-out was completed verifying correct patient, procedure, site, positioning, and implant(s) or special equipment if applicable. Allens test was performed to ensure adequate perfusion. Patients RIGHT wrist was prepped and draped in the usual sterile fashion. Ultrasound guidance was used to aid needle placement. A 20g Arrow arterial line was introduced into the RIGHT Radial artery. Catheter was threaded, and the needle was removed with appropriate blood return. Good waveform was observed. The patient tolerated the procedure well. Confirmation of placement with ultrasound. Blood Loss: Minimal Complications: None Procedural Ultrasound Guidance: Procedure Date: 02/02/2021 Indication: ABGs, Pressors, TTM protocol Attending: Dr. Fu APC: Francisco Javier Borjas PA-C Artery Identified: YES Line confirmed in Artery with ultrasound: YES Complications: NONE Patient tolerated procedure: WELL Coding CPT Codes Tubes, Drains, and Vasc Access - Tubes, Drains, and Vasc Access: [id number] Place Catheter In Artery ([id number]) [facility] Procedure Codes (Charges) Tubes, Drains, and Vasc Access Procedure 1: Tubes, Drains, and Vasc Access: [id number] Place Catheter In Artery
[2021-02-02] MEDS ORDERED: ALBUT/IPRATROP 3MG/0.5MG NEB 3 ML VIAL ONE ×2 (20:57→21:59)
[2021-02-02] MEDS ORDERED: CALCIUM GLUCONATE 10% 2,000 MG in SODIUM CHLORIDE 0.9% 50 ML IV ONE (21:00)
[2021-02-02 21:08] LABS: Beta-Hydroxybutyrate 4.38 mg/dl (0.2-2.81)
[2021-02-02 21:16] LABS: Partial Thromboplastin Time 66.6 Seconds (21.0-31.0)
[2021-02-02] MEDS: AMPICILLIN/SULBACTAM SOD 3,000 MG in 0.9 % SODIUM CHLORIDE 100 ML IV SCH (21:18)
[2021-02-02] MEDS: FAMOTIDINE 20 MG in SYRINGE 3 ML IV SCH (21:20)
[2021-02-02] MEDS: POTASSIUM CHLORIDE / WTR 10 MEQ/100 ML PLCT IV SCH ×2 (21:20→21:52)
[2021-02-02] MEDS ORDERED: PHARMACY GLYCEMIC MGMT CONSULT PRN (21:22)
[2021-02-02] MEDS: INSULIN REGULAR 250 UNITS in SODIUM CHLORIDE 0.9% 247.5 ML IV SCH (21:24)
[2021-02-02] MEDS ORDERED: NovoLIN-R BOLUS FROM BAG IV ONE (21:30)
[2021-02-02] MEDS ORDERED: DEXTROSE 50% 50 ML SYRINGE IV PRN (21:30)
[2021-02-02] MEDS ORDERED: GLUCOSE 10 TABS/TUBE PO PRN (21:30)
[2021-02-02] MEDS ORDERED: GLUCAGON FOR INJ 1 MG VIAL IM PRN (21:30)
[2021-02-02] MEDS ORDERED: GLUCOSE 40% GEL 15 GM TUBE PO PRN (21:30)
[2021-02-02] MEDS ORDERED: CARBOHYDRATES FOR HYPOGLYCEMIA PO PRN (21:30)
[2021-02-02] MEDS ORDERED: ALBUT/IPRATROP 3MG/0.5MG NEB 3 ML VIAL NEB PRN (21:55)
[2021-02-02] MEDS ORDERED: NOREPINEPHRINE/D5W 8 MG/508 ML IV ONE (21:55)
[2021-02-02] MEDS ORDERED: AMIODARONE / D5W 360 MG/200 ML BAG IV ONE (21:55)
[2021-02-02] MEDS ORDERED: 0.2 MICRON FILTER SET 1 EA IV ONE (21:55)
[2021-02-02] MEDS ORDERED: AMIODARONE 360MG / 200ML D5W IV ONE (21:58)
[2021-02-02] MEDS: NOREPINEPHRINE/D5W 8 MG/508 ML BAG IV SCH (22:12)
[2021-02-02 22:42] LABS: iSTAT Arterial Blood Gas HCO3 18 meg/L (19-24); iSTAT Arterial Blood Gas pCO2 44 mmHg (35-46); iSTAT Arterial Blood Gas pH 7.22 (7.35-7.45); iSTAT Arterial Blood Gas pO2 60 mmHg (80-95); iSTAT Carbon Dioxide 19 mmol/L (24-31); iSTAT Hematocrit 35 % (37-47); iSTAT Hemoglobin 11.9 g/dl (12.0-16.0); iSTAT Potassium 3.4 mmol/L (3.3-5.0); iSTAT Sodium 134 mmol/L (135-144)
[2021-02-02 22:42] LABS: iSTAT Arterial Blood Gas HCO3 20 meg/L (19-24); iSTAT Arterial Blood Gas pCO2 42 mmHg (35-46); iSTAT Arterial Blood Gas pH 7.28 (7.35-7.45); iSTAT Arterial Blood Gas pO2 54 mmHg (80-95); iSTAT Carbon Dioxide 21 mmol/L (24-31)
[2021-02-02 22:51] LABS: iSTAT Art Bld Gas pCO2 Correct 36 mmHg (35-46); iSTAT Art Bld Gas pH Corrected 7.271 (7.35-7.45); iSTAT Arterial Blood Gas HCO3 17 meg/L (19-24); iSTAT Arterial Blood Gas pCO2 41 mmHg (35-46); iSTAT Arterial Blood Gas pH 7.23 (7.35-7.45); iSTAT Arterial Blood Gas pO2 63 mmHg (80-95); iSTAT Arterial Blood Gas pO2 C 51; iSTAT Carbon Dioxide 18 mmol/L (24-31); iSTAT FiO2 100 %; iSTAT Hematocrit 35 % (37-47); iSTAT Hemoglobin 11.9 g/dl (12.0-16.0); iSTAT Potassium 3.4 mmol/L (3.3-5.0); iSTAT Site Art Line; iSTAT Sodium 134 mmol/L (135-144)
[2021-02-02] MEDS ORDERED: FUROSEMIDE 20 MG in SYRINGE 0 ML IV ONE (23:00)
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
--- NOTE | 2021-02-02 23:50 | Cardiac Catheterization ---
[facility] Data: Linoleum Installer Cardiac Status Clinical evaluation leading to the procedure CAD Presenation: STEMI Anginal Classification: CCS IV Heart Failure: No Cardiogenic Shock within 24 Hours: No Cardiac Arrest within 24 Hours: No Imaging Studies Past 6 Months: No Stress Studies Past 6 Months: No Diagnostic Physicians Name: Robert Guidry MD Status: Emergency Closure Device Percutaneous Entry Location: Radial Closure Device: Radial Band Recommendations: PCI without planned CABG PCI Indication: Immediate PCI for STEMI First Noted: First EKG Lesion Segment Name: Mid LAD Culprit Artery: Yes Stenosis Prior to Rx (%): 100 Chronic Total Occlusion: No IVUS: No FFR: No Pre-Procedure MERY Flow: 0 Previously Treated Lesion: No Lesion Complexity: High/C Thrombus Present: Yes Bifurcation Lesion: No Guidewire Across Lesion: Stenosis Post-Procedure (%): 0 Post-Procedure MERY Flow: 3 Devices(s) Deployed: Yes Yes Intraprocedure Events Significant Disection: No Perforation: No Cardiac Cath Procedure Full Procedure Date February 02, 2021 Pre-Procedure Diagnosis Pre-Procedure Diagnosis: STEMI AUC Score AUC Score: 9 Post-Procedure Diagnosis Post-Procedure Diagnosis: Severe CAD, Successful PCI and Elevated Intracardiac Pressures Procedure(s) Performed Procedure(s) Performed: Coronary Angiography, Left Heart Cath, Drug Eluting Stent, Ultrasound Guided Vascular Access and Procedure (Central venous catheter placement) Research Associate Professor Robert Guidry MD Clinical Rehabilitation Liaison(s) Anthony Estimated Blood Loss Estimated Blood Loss: 15 Medication(s) Medication(s): Fentanyl, Heparin, Integrilin, Lidocaine 1%, Nicardipine, Nitroglycerin, Norepinephrine and Versed Medication(s): Ticagrelor Amiodarone Summary of Findings Indication: STEMI/Heart Alert Access: 6Fr right radial artery, central venous catheter placed to right common femoral vein Catheters: EBU 3.5 guide, diagnostic JR4 Findings: LM - Calcified, no significant disease LAD -heavily calcified, 40% proximal disease, 100% acute early mid LAD occlusion. Diffuse severe latemid LAD disease after reestablished flow. 99% focal stenosis in LAD as wraps around apex. Large high D1 without significant disease Circumflex -heavily calcified, 40 to 50% proximal, 50% mid segment disease. RCA -dominant, large caliber, heavily calcified, mid segment luminal irregu larities. Large right distal PLB with 90% mid segment stenosis. LVEDP - 23 -- PCI -- Antithrombotic therapy: Heparin, Integrilin, ticagrelor Procedure: Left main cannulated with EBU 3.5 guide Plant Care Worker 50 wire passed across lesion into distal vessel Mid LAD heavily calcified and difficult to pass balloon into mid LAD Eventually able to pass a 2.0 balloon across occlusion with the aid of a guide liner. Mid LAD lesion predilated with additional 2.5 and 3.0 compliant balloons With the aid of a GuideLiner able to deliver a 2.5 x 26 mm Markos drug-eluting stent to mid LAD Stent postdilated with 3.0 NC balloon Second BHANU (2.5 x 30 mm [place]) placed from proximal LAD to mid LAD overlapping proximal aspect of initial stent Stents post-dilated with 3.0 noncompliant balloon IC vasodilators administered for spasm Still with MERY I-II flow post stent inflation. Noted to have a 99% apical LAD stenosis. LAD rewired with pilot supervisor 50 wire and apical LAD dilated with 2.0 balloon Apical LAD expanded appropriately with post inflation MERY-3 flow. Stents well expanded. No apparent edge complications. During procedure while sedated on propofol/fentanyl Versed hemodynamic support with norepinephrine. Post procedure Quattro cooling catheter placed to right common femoral vein under ultrasound guidance Arterial Closure: TR band Summary: 1. [id number] cardiac arrest/post ROSC anterior STEMI 2. Heavily calcified 100% acute earlymid LAD occlusion with diffuse severe latemid LAD disease 3. Multivessel non-culprit coronary artery disease -90% mid large right PLB stenosis 40% proximal, 50% mid circumflex stenosis 4. Elevated intracardiac filling pressure 5. Successful PCI of proximal to mid LAD with 2 long overlapping drug-eluting stents (2.5 x 30, 2.5 x 2611 Markos; postdilated with 3.0 NC). 6. Angioplasty of apical LAD with 2.0 balloon Recommendations: Admit to ICU for continued monitoring and targeted temperature management Loaded with ticagrelor 180 mg in track laborer Integrilin infusion for 3 hours post procedure Continue amiodarone infusion overnight Continue dual-antiplatelet therapy for at least 1 year. Trend troponins until peak, Check Echo Wean norepinephrine as able Gentle diuresis as needed Plan to medically manage residual CAD. Hemodynamics Rest Ao:: 102/71/93 Final Ao: 108/65/80 LV: 106/23 Recommendations Recommendations: PCI without planned CABG Specimens Specimens: None Radiation Exposure (mGy) 1294 Contrast (mls) 135 Fluids (cc crystalloids) Fluids (cc crystalloids): 300 Drains Drains: None Anesthesia Moderate 9488-1634 Procedural Complication(s) None Disposition ICU I attest to the content of the Intraoperative Record and any orders documented therein. Any exceptions are noted below. [facility] Card Cath Procedure Codes Cardiac Catheterization Procedure 1: Cardiovascular Cath Procedures: 66539 Coronaries and LHC (+/-LV) Therapeutic Services & Ancillary Proc Procedure 1: Cardiovascular Tx and Anc Procedures: 82693 Ultrasonic Guidance Vascular Access Procedure 2: Cardiovascular Tx and Anc Procedures: 58994 Insertion Central Venous Catheter Moderate Sedation Procedure 1: Sedation/Anesthesia: 53865 Mod Sedation by the same physician;Init15 Min Child Age 5 & Up Procedure 2: Sedation/Anesthesia: 12447 Mod Sedation by the same physician; Ea [id number] Minutes Stenting Procedure 1: Cardiovascular Stent Procedures: 67899 Perc transluminal revascularization of acute sub/total occl, aMI PG Care Time/CCT Total # of Minutes Spent Total Time Spent with Patient: Total time spent is greater than 50% in coordination of care (as documented) at patient's floor/unit and/or counseling patient:
[2021-02-03] MEDS: NOREPINEPHRINE/D5W 8 MG/508 ML BAG IV SCH ×2 (00:50→09:30)
[2021-02-03] MEDS: propofoL 1,000 MG/100 ML VIAL IV SCH (00:52)
[2021-02-03] MEDS ORDERED: STAT IV Infusion **Titration per Protocol STA ×2 (01:15→01:59)
[2021-02-03] MEDS: EPINEPHrine/NSS 4 MG/254 ML BAG IV SCH ×2 (01:27→10:47)
[2021-02-03 01:37] LABS: iSTAT Art Bld Gas pCO2 Correct 40 mmHg (35-46); iSTAT Art Bld Gas pH Corrected 7.228 (7.35-7.45); iSTAT Arterial Blood Gas HCO3 17 meg/L (19-24); iSTAT Arterial Blood Gas pCO2 46 mmHg (35-46); iSTAT Arterial Blood Gas pH 7.19 (7.35-7.45); iSTAT Arterial Blood Gas pO2 68 mmHg (80-95); iSTAT Arterial Blood Gas pO2 C 56; iSTAT Carbon Dioxide 19 mmol/L (24-31); iSTAT FiO2 100 %; iSTAT Hematocrit 35 % (37-47); iSTAT Hemoglobin 11.9 g/dl (12.0-16.0); iSTAT Potassium 2.9 mmol/L (3.3-5.0); iSTAT Site Art Line; iSTAT Sodium 134 mmol/L (135-144)
[2021-02-03 01:43] LABS: Hematocrit (blood only) 33.8 % (37-47); Hemoglobin 11.2 g/dL (12.0-16.0)
[2021-02-03] MEDS ORDERED: TXA 10% Non-IV Routes 100 MG/ML VIAL NEB ONE (01:46)
[2021-02-03] MEDS ORDERED: VECURONIUM BROMIDE 10 MG VIAL IV STA ×2 (01:47→02:15)
[2021-02-03] MEDS ORDERED: TXA 10% Non-IV Routes 100 MG/ML VIAL ONE (01:50)
[2021-02-03] MEDS ORDERED: MIDAZOLAM HCL 125 MG/250 ML BAG IV PRN (01:59)
[2021-02-03] MEDS ORDERED: MIDAZOLAM BOLUS FROM BAG IV PRN (01:59)
[2021-02-03 02:00] LABS: INR 1.2 (0.9-1.1); Partial Thromboplastin Ratio 1.1; Partial Thromboplastin Time 28.5 Seconds (21.0-31.0); Prothrombin Time 11.6 Seconds (9.0-12.0)
--- NOTE | 2021-02-03 02:00 | Communication Note ---
Date of Service: February 03, 2021 0130: Patient had acute drop in her blood pressure into the 60s to 70s systolically. I did present immediately at bedside. Initially, it was felt as though the pressors were not infusing appropriately through the pump and/or line. The central line was addressed and this point minimal improvement in blood pressure, the patient was requiring additional vasopressor support. Order was placed for addition of epinephrine. Shortly after stabilization of blood pressure, the patient developed hypoxia with saturations in the 70s. Respiratory had been present at bedside and did perform suctioning which demonstrated thin red blood-tinged sputum. We did attempt to manually bagged the patient which did not provide much relief. Her saturations improved to the low 80s. At this point, I did reach out to my attending physician for likely need for emergent bronchoscopy for further evaluation of possible pulmonary hemorrhage. Please refer to his note for bronchoscopy procedure. 0214: I reached out to Dr. Guidry and updated him regarding the acute change in the patient's status. He recommends calling [facility] to mobilize catheterization team staff for placement of Impella device. 0224: I did reach out to the patient's , Torin. I updated him on acute change in status. He will present to the hospital for ongoing decision- making. I have personally spent 45 minutes of critical care time in the direct management of this patient. This is a life/limb threatening event. This includes time spent evaluating patient, direct bedside care, chart review, placing orders, interpretation of diagnostic studies, discussion with consultants, patient, and family members, as well as other required patient management activities. This time is exclusive of all separately billable procedures, and teaching time and separate from and in addition to any other critical care service time. Coding Level of Care Code Critical Care 1st 30-74 mins Time Spent (min) 55
[2021-02-03 02:11] LABS: BUN Creatinine Ratio 16.8 (10-20); Creatinine Clr Calc Pharmacy 51.7 ml/min; Est GFR (African American) 66.8 ml/min; Est GFR (Non-African American) 57.6 ml/min; Magnesium 1.9 mg/dl (1.8-2.4)
[2021-02-03 02:12] LABS: Potassium 3.1 mmol/L (3.5-5.1)
[2021-02-03] MEDS ORDERED: CALCIUM CHLORIDE 10% 1,000 MG in SODIUM CHLORIDE 0.9% 50 ML IV STA (02:15)
[2021-02-03] MEDS ORDERED: SODIUM BICARB 8.4% INJ 50 MEQ/50 ML SYR IV STA (02:15)
[2021-02-03] MEDS ORDERED: CALCIUM CHLORIDE 10% 10 ML SYR IV ONE (02:17)
[2021-02-03] MEDS ORDERED: SODIUM BICARB 8.4% INJ 50 MEQ/50 ML SYR IV ONE (02:17)
[2021-02-03 02:21] LABS: Beta-Hydroxybutyrate 0.98 mg/dl (0.2-2.81)
[2021-02-03] MEDS ORDERED: AMIODARONE 150MG / 100ML D5W IV ONE (02:25)
[2021-02-03] MEDS ORDERED: 0.2 MICRON FILTER SET 1 EA IV ONE ×2 (02:25→03:15)
[2021-02-03] MEDS ORDERED: AMIODARONE / D5W 150 MG/100 ML BAG IV STA (02:25)
[2021-02-03] MEDS: AMIODARONE / D5W 360 MG/200 ML BAG IV SCH ×2 (02:40→08:28)
[2021-02-03 02:41] LABS: iSTAT Art Bld Gas pCO2 Correct 63 mmHg (35-46); iSTAT Art Bld Gas pH Corrected 7.219 (7.35-7.45); iSTAT Arterial Blood Gas HCO3 27 meg/L (19-24); iSTAT Arterial Blood Gas pCO2 73 mmHg (35-46); iSTAT Arterial Blood Gas pH 7.18 (7.35-7.45); iSTAT Arterial Blood Gas pO2 58 mmHg (80-95); iSTAT Arterial Blood Gas pO2 C 46; iSTAT Carbon Dioxide 29 mmol/L (24-31); iSTAT FiO2 100 %; iSTAT Hematocrit 31 % (37-47); iSTAT Hemoglobin 10.5 g/dl (12.0-16.0); iSTAT Potassium 2.5 mmol/L (3.3-5.0); iSTAT Site Art Line; iSTAT Sodium 137 mmol/L (135-144)
[2021-02-03] MEDS ORDERED: Nursing to Pharmacy Communication SCH ×3 (02:45→03:00)
[2021-02-03] MEDS: SODIUM BICARBONATE 8.4% 150 MEQ in WATER, STERILE 1,000 ML IV SCH ×2 (02:46→11:16)
[2021-02-03] MEDS: VASOPRESSIN 20 UNITS in 0.9 % SODIUM CHLORIDE 100 ML IV SCH ×2 (02:46→11:17)
[2021-02-03] MEDS ORDERED: niCARdipine HCL INJ 2.5 MG/ML 10 ML AMP ONE (02:48)
[2021-02-03] MEDS ORDERED: fentaNYL citrate 100 MCG/2 ML VIAL ONE (02:48)
[2021-02-03] MEDS ORDERED: MIDAZOLAM HCL 1 MG/ML 2ML VIAL ONE (02:48)
[2021-02-03] MEDS ORDERED: HEPARIN (PORCINE) 1000 UNIT/ML 10 ML (CATH LAB USE ONLY) ONE (02:48)
[2021-02-03] MEDS ORDERED: NITROGLYCERIN/D5W 100MCG/ML 20ML SYR ONE (02:49)
[2021-02-03] MEDS ORDERED: NORMOSOL-R 1,000 ML IV ONE (03:15)
--- NOTE | 2021-02-03 03:21 | Communication Note ---
Date of Service: February 03, 2021 Called to bedside by critical care KAHLIL due to progressive hypotension and hypoxemic respiratory failure. Patient seen and examined. Discussed with critical care KAHLIL. Imaging studies were independently reviewed. Patient with out of hospital cardiac arrest has been taken to the Sewing Pattern Layout Technician earlier. She is currently undergoing hypothermia. She developed fairly acute onset of hypoxemia with a dense right upper lobe infiltrate. She been started on antibiotics. Unfortunately we were unable to maintain saturations and she required initiation of 3 vasopressor agents to try and maintain oxygen saturations. I arrived at the bedside and performed bronchoscopy. Please see separate procedure note. There was evidence of diffuse bleeding throughout the t racheobronchial tree however no significant mucous plugs were identified and the tracheobronchial tree was widely patent. A variety of ventilator recruitment maneuvers were performed which unfortunately did not significantly impact the patient's oxygen saturation. We tried PEEP recruitment maneuvers, inverse ratio ventilation, however these did not significantly improve the oxygen saturation. Briefly we were able to bag the patient into the mid 80% range. She intermittently required pushes of calcium, bicarb, and epinephrine to try and maintain oxygen saturations. She then transitioned into a wide-complex tachycardia. Given her hemodynamic instability, she was defibrillated an additional 2 times and given additional amiodarone but unfortunately this did not result in sinus rhythm and she remained in and intermittently wide-complex. Cardiology was consulted. Dr. Guidry presented at bedside and is taking her back to the Sewing Pattern Layout Technician to ensure the stents are patent and for consideration of a Impella for mechanical augmentation. I am unclear if we can improve her oxygenation enough to consider transport safely. Her prognosis at this point time is dire. Family was updated by the critical care KAHLIL Additional 65 minutes in critical care time exclusive of procedures Coding Level of Care Code Critical Care ea addt'l 30 min Time Spent (min) 65
--- NOTE | 2021-02-03 03:24 | Procedure Note ---
Procedure Note Date of Service February 03, 2021 Procedure: Fiberoptic bronchoscopy Provider: Andrew Fu MD Consent: Procedure was emergent Procedure: Patient was intubated in the ICU. She had bloody secretions and was unable to oxygenate. Bronchoscopy was indicated to ensure no mucous plugging. Procedure was emergent. Patient was unable to consent. No family immediately available. The Bodai adapter was placed in line with the ventilatory circuit. A disposable glide scope bronchoscope was advanced through the adapter. The tube was sounded and found to be in good position. Was approximately 2 cm off the riri. Within the tracheobronchial tree, there was diffuse bloody secretions which were aspirated and lavaged free. There were bloody secretions emanating from the right upper lobe bronchus intermedius and to a lesser extent the right middle lobe and right lower lobe. These were aspirated free and lavaged. Due to the patient's hypoxemia, I elected to not perform BAL. Pattern appeared to be consistent with alveolar hemorrhage. Unclear if this is traumatic or related to her anticoagulation. Do not think inhaled TXA would be beneficial at this point time as it was likely result in clotting in the airways and worsening of the patient's gas exchange. Impression: 1. Probable pulmonary hemorrhage. 2. Satisfactorily positioned endotracheal tube Coding CPT Codes Pulmonary/Thoracic - Pulmonary and Thoracic: 43524 Dx bronchoscopy/wash (P [id number]) [facility] [place] Procedure Codes (Charges) Pulmonary/Thoracic Procedure 1: Pulmonary and Thoracic: 63170 Dx bronchoscopy/wash
[2021-02-03 05:10] LABS: iSTAT Arterial Blood Gas HCO3 30 meg/L (19-24); iSTAT Arterial Blood Gas pCO2 80 mmHg (35-46); iSTAT Arterial Blood Gas pH 7.18 (7.35-7.45); iSTAT Arterial Blood Gas pO2 < 32 mmHg (80-95); iSTAT Carbon Dioxide 32 mmol/L (24-31)
[2021-02-03 05:10] LABS: iSTAT Arterial Blood Gas HCO3 27 meg/L (19-24); iSTAT Arterial Blood Gas pCO2 69 mmHg (35-46); iSTAT Arterial Blood Gas pO2 34 mmHg (80-95); iSTAT Carbon Dioxide 29 mmol/L (24-31)
[2021-02-03 05:18] LABS: Hematocrit (blood only) 31.5 % (37-47); Hemoglobin 10.4 g/dL (12.0-16.0); Immature Granulocytes # (auto) 0.01 K/uL (0.00-0.02); Immature Granulocytes % (auto) 0.2 %; Lymphocytes # (auto) 1.35 K/uL (1.2-3.4); Lymphocytes % (auto) 20.3 %; Mean Corpuscular Hemoglobin 30.2 pg (25-34); Mean Corpuscular Volume 91.6 fL (80-100); Mean Platelet Volume 9.4 fL (7.4-10.4); Monocytes # (auto) 0.07 K/uL (0.11-0.59); Monocytes % (auto) 1.1 %; Neutrophils # (auto) 5.23 K/uL (1.4-6.5); Neutrophils % (auto) 78.4 %; Platelet Count 348 K/uL (130-400); RDW Coefficient of Variation 13.6 % (11.5-14.5); RDW Standard Deviation 45.4 fL (36.4-46.3); Red Blood Count 3.44 M/uL (4.2-5.4); White Blood Count 6.66 K/uL (4.8-10.8)
[2021-02-03 05:20] LABS: iSTAT Art Bld Gas pCO2 Correct 57 mmHg (35-46); iSTAT Art Bld Gas pH Corrected 7.288 (7.35-7.45); iSTAT Arterial Blood Gas HCO3 29 meg/L (19-24); iSTAT Arterial Blood Gas pCO2 66 mmHg (35-46); iSTAT Arterial Blood Gas pH 7.25 (7.35-7.45); iSTAT Arterial Blood Gas pO2 48 mmHg (80-95); iSTAT Arterial Blood Gas pO2 C 39; iSTAT Carbon Dioxide 30 mmol/L (24-31); iSTAT FiO2 100 %; iSTAT Hematocrit 31 % (37-47); iSTAT Hemoglobin 10.5 g/dl (12.0-16.0); iSTAT Potassium 2.1 mmol/L (3.3-5.0); iSTAT Site Art Line; iSTAT Sodium 136 mmol/L (135-144)
[2021-02-03] MEDS ORDERED: TICAGRELOR 90 MG TAB PO SCH (05:23)
--- NOTE | 2021-02-03 05:34 | Cardiac Catheterization ---
[facility] Data: Operator Supply Cardiac Status Clinical evaluation leading to the procedure CAD Presenation: STEMI Anginal Classification: CCS IV Heart Failure: NYHA Class: CCS IV Cardiogenic Shock within 24 Hours: Yes Cardiac Arrest within 24 Hours: Yes Imaging Studies Past 6 Months: No Stress Studies Past 6 Months: No Diagnostic Physicians Name: Robert Guidry MD Status: Emergency Closure Device Percutaneous Entry Location: Femoral Recommendations: Medical Therapy and/or Counseling Intraprocedure Events Significant Disection: No Perforation: No Cardiac Cath Procedure Full Procedure Date February 03, 2021 Pre-Procedure Diagnosis Pre-Procedure Diagnosis: STEMI and Cardiothoracic Symptom (Cardiogenic shock) AUC Score AUC Score: 8 Post-Procedure Diagnosis Post-Procedure Diagnosis: Moderate CAD and Decreased LV Systolic Function Procedure(s) Performed Procedure(s) Performed: Coronary Angiography, Left Heart Cath, Right Heart Cath, Ultrasound Guided Vascular Access, Defibrillation and Procedure (Impella placement) Senior Product Development Scientist Robert Guidry MD Food And Nutrition Services Supervisor(s) Anthony Estimated Blood Loss Estimated Blood Loss: 20 Medication(s) Medication(s): Epinephrine, Fentanyl, Heparin, Lidocaine 1% and Norepinephrine Medication(s): Vasopressin Summary of Findings Indication: Acute hypoxic respiratory failure, Cardiogenic shock Access: 14Fr left ADULT CROSSING GUARD, 7Fr left CFV (both under ultrasound guidance). Catheters: pigtail, JL4, swan Findings: LM - Calcified, no significant disease LAD -heavily calcified, stents widely patent with TIMI3 flow. Circumflex -heavily calcified, 40 to 50% proximal, 50% mid segment disease (unchanged from yesterday) RCA -not visualized. -- Procedure -- Antithrombotic therapy: Heparin 6Fr placed to left ADULT CROSSING GUARD under ultrasound guidance. Iliac angiography revealed suitable vessel for Impella CP device placement. Heparin to ACT > 250 6Fr sheath upsized to long 14Fr sheath. AoV crossed with pigtail. LVEDP 18 Impella CP device placed into LV -- at auto settings CO 3.5 L, MAPs in 60s Despite Impella device unable improve oxygenation (02 sats in 50-60s) and unable to significantly wean pressor requirements. Coronary angiography via 6Fr sheath placed through impella sheath with JL4 diagnostic catheter 7Fr swan placed to LT PA. RA 8, RV 24/7, PA 22/13 (17) PaSat 21%, AoSat 51%. Debbie CO 3.98 During swan placement developed VF which responded to defibrillation at 200J x1. Device secured in place. Summary: 1. Cardiogenic shock 2. Hypoxic respiratory failure 3. Patent LAD stents 4. Successful placement of Impella CP device. Recommendations: Despite mechanical circulatory support, maximal ventilator settings unable to improve oxygenation or vasopressor requirements. Discussion had with Mary Lou Akbar about potential transfer for ECMO but thought too unstable for transfer and likelihood of meaningful recovery after prolonged hypoxia thought low. Discussion had with family. clear that patient would not want prolonged, extraordinary measures. Plan to continue current care without escalation until additional family members able to see patient with likely transition to comfort measures after that time. Hemodynamics Rest Ao:: 55/37/46 Final Ao: 78/42/63 LV: 86/17 Recommendations Recommendations: Medical Therapy and/or Counseling Specimens Specimens: None Radiation Exposure (mGy) 281 Contrast (mls) 20 Drains Drains: None Anesthesia Moderate 316-420 Procedural Complication(s) None Disposition ICU I attest to the content of the Intraoperative Record and any orders documented therein. Any exceptions are noted below. Resonate Card Cath Procedure Codes Cardiac Catheterization Procedure 1: Cardiovascular Cath Procedures: 00488 Coronaries & LHC (+/-LV) & RHC Therapeutic Services & Ancillary Proc Procedure 1: Cardiovascular Tx and Anc Procedures: 84041 Insertion of Percutaneous Ventricular Assist Device Procedure 2: Cardiovascular Tx and Anc Procedures: 67201 Ultrasonic Guidance Vascular Access Procedure 3: Cardiovascular Tx and Anc Procedures: 94150 Ultrasonic Guidance Vascular Access Moderate Sedation Procedure 1: Sedation/Anesthesia: 83205 Mod Sedation by the same physician;Init15 Min Child Age 5 & Up Procedure 2: Sedation/Anesthesia: 62783 Mod Sedation by the same physician; Ea [id number] Minutes PG Care Time/CCT Total # of Minutes Spent Total Time Spent with Patient: Total time spent is greater than 50% in coordination of care (as documented) at patient's floor/unit and/or counseling patient:
[2021-02-03 05:59] LABS: Chol HDL Ratio 2; Cholesterol 91 mg/dl (0-200); HDL Cholesterol 53 mg/dl; LDL Cholesterol Direct 34 mg/dl; Triglycerides 40 mg/dl (0-150); VLDL Cholesterol 8 mg/dl
[2021-02-03] MEDS: ALBUTEROL 0.083% NEBU SOLN 3 ML VIAL INH SCH ×2 (06:06→07:33)
[2021-02-03] MEDS: AMPICILLIN/SULBACTAM SOD 3,000 MG in 0.9 % SODIUM CHLORIDE 100 ML IV SCH (06:18)
[2021-02-03] MEDS: POTASSIUM CHLORIDE / WTR 10 MEQ/100 ML PLCT IV SCH ×4 (06:19→10:22)
[2021-02-03 07:23] LABS: Estimated Average Glucose 114 mg/dl; Hemoglobin A1C 5.6 % (4.5-5.6)
[2021-02-03] MEDS ORDERED: INSULIN ASPART 100 UNITS/ML 3 ML PEN SC SCH (07:30)
[2021-02-03] MEDS ORDERED: PNEUMOCOCCAL POLYSACCHARIDES 25 MCG/0.5 ML VIAL/SYR IM ONE (08:00)
--- NOTE | 2021-02-03 08:20 | XRay Report ---
XR chest 1V portable CLINICAL HISTORY: hypoxia COMPARISON STUDY: February 02, 2021 FINDINGS: No pneumothorax. No pleural effusion. Significant interval worsening of opacity within right upper lung region with air bronchograms likely representing consolidative process. Diffuse prominence of pulmonary interstitium is again seen bilaterally. Cardiomediastinal silhouette is within normal limits in size. Interval prominence of hazy perihilar opacities which are seen bilaterally. Pulmonary vasculature is obscured.. Osseous structures are slightly demineralized. Degenerative changes of the spine are seen. Tip of endotracheal tube is projecting 4.4 cm above riri. Interval placement of gastric tube with tip outside of field of view and fenestrated side port slight ly below level of left hemidiaphragm. New linear structure is seen projecting to the right paravertebral region and tip within anatomical r egion of the right atrium which might represent central femoral line. Overall evaluation is limited due to multiple tubes and wires overlying chest. IMPRESSION: 1. Interval development of consolidative opacity with air bronchogram within the anatomical region o f the right upper lobe. No volume loss is seen within right lung. Differential diagnosis include aspi ration pneumonia versus other etiology. 2. Interval repositioning of endotracheal tube, now tip is in expected position. 3. Hazy perihilar opacities appear more prominent since prior study and sometimes could be seen in p ulmonary edema. Cardiac silhouette is within normal limits in size. 4. The rest of support apparatus as above. ACT 112: Negative or not required by law. The above report was generated using voice recognition software. It may contain grammatical, syntax o r spelling errors. Electronically signed by: Teresa Nunez DO 02/03/2021 9:41 AM
[2021-02-03] MEDS ORDERED: ESCITALOPRAM OXALATE 10 MG TAB PO SCH (09:00)
[2021-02-03] MEDS ORDERED: ASPIRIN 81 MG ECTAB PO SCH (09:00)
[2021-02-03] MEDS ORDERED: ATORVASTATIN 40 MG TAB PO SCH (09:00)
[2021-02-03] MEDS: FAMOTIDINE 20 MG in SYRINGE 3 ML IV SCH (09:15)
[2021-02-03 10:22] LABS: iSTAT Hemoglobin 14.3 g/dl (12.0-16.0); iSTAT Ionized Calcium 1.21 mmol/l (1.12-1.32); iSTAT Potassium 3.7 mmol/L (3.3-5.0)
[2021-02-03] MEDS: INSULIN REGULAR 250 UNITS in SODIUM CHLORIDE 0.9% 247.5 ML IV SCH (10:46)
--- NOTE | 2021-02-03 12:00 | Pharmacy Report ---
Pharmacy Glycemic Short Note 2 - Date of Service February 03, 2021 - Glycemic Short BSG Results (Last 24 hours): 02/02/21 02/02/21 02/02/21 16:43 16:49 20:20 Glucose 331 H* 365 H* POC Glucose POC Glucose (other) 330 H 02/02/21 02/02/21 02/02/21 20:36 22:17 23:24 Glucose POC Glucose POC Glucose (other) 348 H 413 H* 400 H* 02/03/21 02/03/21 02/03/21 00:32 01:32 01:40 Glucose 356 H* POC Glucose POC Glucose (other) 382 H* 366 H* 02/03/21 02/03/21 02/03/21 02:52 03:33 05:05 Glucose POC Glucose 403 H* POC Glucose (other) 411 H* 422 H* 02/03/21 06:34 Glucose POC Glucose POC Glucose (other) 382 H* OUTPATIENT ANTIDIABETIC REGIMEN: * n/a * A1c 5.6% 02/03/21 ASSESSMENT: * Patient admitted to ICU following cardiac arrest, patient to engineering laboratory technician x 2, on multiple high dose pressors (epi,norepi,vasopressin), blood sugars on arrival were elevated in the 400s. * Insulin infusion started and was quickly titrated up. BSGs remain elevated with rate currently at 50 units/hr. Per RN insulin infusing correctly, no infiltration. * Will continue at this rate for now given critical condition and do not anticipate improvement with further uptitration of drip rate/would need to exceed guardrails set for insulin infusion. Family at bedside and anticipate orders for transition to comfort measures once all family members have a rrived. PLAN FOR INPATIENT GLYCEMIC CONTROL: * Continue insulin infusion with appropriate monitoring- current rate 50 units/hr
--- NOTE | 2021-02-03 13:05 | Death Pronouncement Note ---
Date of Service February 03, 2021 Pronouncement Note Admission Date Admission Date: February 02, 2021 Called by nursing to pronounce patient. Patient been expecting his we had maxed out life-sustaining therapies and family elected not to pursue any additional aggressive interventions. We were waiting for arrival of additional family members when the patient became asystolic. I presented to the room and evaluated the patient. Pupils are fixed and dilated. She was discontinued from the ventilator and demonstrated no respiratory effort. No electrical activity on the legal practice manager. No heart sounds auscultated for 2 minutes. No response to verbal or tactile stimulus. The patient was pronounced at 11:57 AM. Molding Supervisor will be notified. Family is appropriately grieving and support was offered at the bedside. Contributing Factors (1) Admitted to intensive care unit: (2) Cardiopulmonary arrest with successful resuscitation: (3) S/P PTCA (percutaneous transluminal coronary angioplasty): (4) S/P drug eluting coronary stent placement: (5) CAD (coronary artery disease): (6) Ventricular fibrillation: Additional Data Attending physician: Robert Guidry MD Coding Level of Care Code None Diagnoses Admitted to intensive care unit Z78.9 Cardiopulmonary arrest with successful resuscitation I46.9 S/P PTCA (percutaneous transluminal coronary angioplasty) Z98.61 S/P drug eluting coronary stent placement Z95.5 CAD (coronary artery disease) I25.10 Coronary Disease-Associated Artery/Lesion type: bel[place]ski artery [place] vs. transplanted heart: belkofski heart Associated angina: unspecified whether angina present Ventricular fibrillation I49.01
--- NOTE | 2021-02-05 18:00 | Electrocardiogram Report ---
Test Reason : Blood Pressure : / mmHG Vent. Rate : 146 BPM Atrial Rate : 146 BPM P-R Int : 104 ms QRS Dur : 096 ms QT Int : 348 ms P-R-T Axes : 000 -02 068 degrees QTc Int : 542 ms Sinus tachycardia with short HI ST elevations consider anterior injury Abnormal ECG When compared with ECG of 21-MAR-2019 04:23, HI interval has decreased Thee are new ST elevations Confirmed by Robert Garner ([id number]) on 02/05/2021 6:00:10 PM Referred By: REFERRED SELF Confirmed By:Viet Garner
--- NOTE | 2021-02-05 18:01 | Electrocardiogram Report ---
Test Reason : Blood Pressure : / mmHG Vent. Rate : 119 BPM Atrial Rate : 131 BPM P-R Int : 000 ms QRS Dur : 100 ms QT Int : 374 ms P-R-T Axes : 000 -47 044 degrees QTc Int : 526 ms Sinus rhythm with fequent atrial ectopy Low voltage QRS Left anterior fascicular block Anterior infarct (cited on or before 02-FEB-2021) Prolonged QT ACUTE [place] / STEMI Abnormal ECG When compared with ECG of 02-FEB-2021 19:11, (unconfirmed) Serial changes of Anterior infarct Present There is now atrial ectopy Confirmed by Robert Garner ([id number]) on 02/05/2021 6:01:25 PM Referred By: REFERRED SELF Confirmed By:Viet Graner
--- NOTE | 2021-02-05 18:01 | Electrocardiogram Report ---
Test Reason : Blood Pressure : / mmHG Vent. Rate : 100 BPM Atrial Rate : 100 BPM P-R Int : 168 ms QRS Dur : 096 ms QT Int : 406 ms P-R-T Axes : 038 -46 051 degrees QTc Int : 523 ms Sinus rhythm with occasional Premature ventricular complexes Left anterior fascicular block Possible Anterior infarct , age undetermined Prolonged QT Abnormal ECG When compared with ECG of 02-FEB-2021 16:34, (unconfirmed) Premature ventricular complexes are now Present Left anterior fascicular block is now Present Borderline criteria for Anterior infarct are now Present Confirmed by Robert Garner ([id number]) on 02/05/2021 6:00:34 PM Referred By: REFERRED SELF Confirmed By:Viet Garner
--- NOTE | 2021-02-05 18:02 | Electrocardiogram Report ---
Test Reason : Blood Pressure : / mmHG Vent. Rate : 099 BPM Atrial Rate : 099 BPM P-R Int : 156 ms QRS Dur : 096 ms QT Int : 316 ms P-R-T Axes : 028 -40 029 degrees QTc Int : 405 ms Sinus rhythm with Premature atrial complexes Left axis deviation Low voltage QRS Inferior infarct (cited on or before 02-FEB-2021) Cannot rule out Anterior infarct (cited on or before 02-FEB-2021) Abnormal ECG When compared with ECG of 02-FEB-2021 21:50, (unconfirmed) Nonspecific T wave abnormality, worse in Inferior leads T wave inversion now evident in Lateral leads Confirmed by Robert Garner ([id number]) on 02/05/2021 6:01:46 PM Referred By: REFERRED SELF Confirmed By:Viet Garner
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
== END 2021-02-03 14:35 | disposition expired | DRG 215 ==
LOC: ED 16:26 → CC 17:45 → 1E 17:56